=== PATIENT | female | born 1995 | race Caucasian/White ===

== ENCOUNTER → 2021-10-22 08:34 | Outpatient (BNVA) | payer BC, SELFPAY | PROVIDERS: PCP Pediatrics; Visit Provider Nurse Practitioner Family ==

== ENCOUNTER → 2022-03-22 08:11 | Outpatient (BNVA) | payer BC, SELFPAY | PROVIDERS: PCP Pediatrics; Visit Provider Nurse Practitioner Family | DX: G43.109 Migraine with aura, not intractable, without status migrainosus (principal) ==

== ENCOUNTER → 2023-01-04 15:25 | Outpatient (BNVA) | payer BC, SELFPAY | PROVIDERS: Visit Provider Nurse Practitioner Family | DX: Z13.89 Encounter for screening for other disorder (principal) ==

== ENCOUNTER → 2023-02-02 16:16 | Outpatient (BNVA) | payer BC, SELFPAY | PROVIDERS: PCP Physician Assistant; Visit Provider Nurse Practitioner Family | DX: Z13.89 Encounter for screening for other disorder (principal) ==

== ENCOUNTER 2023-05-26 11:06 | Outpatient (AMB) | payer BC, SELFPAY ==
--- NOTE | 2023-05-26 11:06 | MHC.OFFVIS ---
Intake Vital Signs 05/26/23 11:07 Height 4 ft 11 in BMI Reason not done Patient refused/unable Position Sitting Pulse 86 Pulse Source Pulse Oximeter Pulse Oximetry (%) 99 Oxygen Delivery Method Room Air Intake Visit Reasons: Follow up Intake Note: Pt presents as a f/u. Back on topirimate and everything is tingling, hands and feet. Pt states she was taken off previously and couldn't remember why. [employer] Consultant Required: No Allergies No Known Allergies Allergy (Verified 05/26/23 11:10) Medication List - Last Reconciled 05/26/23 by PEGGY Fernandez diphenhydramine HCl (Benadryl) 25 mg PO TID PRN 30 days erenumab-aooe (Aimovig Autoinjector) 140 mg subcut ONCE 28 days meloxicam 15 mg PO DAILY PRN methocarbamol 750 mg PO Q8H PRN rizatriptan 5 - 10 mg (0.5 - 1 x 10 mg) PO Q2H PRN 21 days topiramate 50 mg PO DAILY 7 days topiramate 25 - 50 mg (1 - 2 x 25 mg) PO DAILY 30 days HPI HPI Comments History of Present Illness Details 27-yr-old female presents for urgent f/u d/t worsening typical migraine. Pt reports she has not been able to work at all since 05/16/23 due to worsening migraine. She is having bilateral hands and feet bothersome pins and needles. She notes that soda does not taste normal. She does not currently have an abortive migraine medication, as her insurance denied the ubrelvy request She is compliant with her topiramate 25mg qd and Aimovig 140mg sc q month. [facility] Surgical History History of ear surgery Hx of tonsillectomy Social History (Updated 05/26/23 @ 11:14 by Kayleigh Erwin CMA) Alcohol intake: current Alcohol intake frequency: holidays/special occasions only Patient Tobacco Use Status: Current everyday Tobacco user Substance Use Type: Marijuana Review of Systems Const All systems reviewed & are unremarkable except as noted in HPI and below Physical Exam Vital Signs: Last Vital Signs Pulse 86 05/26/23 11:07 Pulse Ox 99 05/26/23 11:07 Oxygen Delivery Method Room Air 05/26/23 11:07 Const General: cooperative and no acute distress Orientation/consciousness: patient oriented x3 HEENT Head: Yes normocephalic Resp Effort & Inspection: normal respiratory effort and able to speak in complete sentences Neuro Other: Photophobia BUE- negative Tinnel, Phalen, medial compression test General: patient oriented x3, gait normal and CN's II-XI intact bilaterally Cognition (Neuro): normal cognition Motor exam (neuro): 5/5 motor strength present throughout Psych Appearance: grossly normal Mental Status: mental status grossly normal Speech and movement: Normal speech and movement present Affect: normal affect Attitude: cooperative Thought process: Normal thought process present Thought content: Normal thought content present Insight: Good insight present (Psych) Judgement: Good judgement present (Psych) Assessment & Plan Assessment & Plan (1) Migraine with status migrainosus: Code(s): G43.901 - Migraine, unspecified, not intractable, with status migrainosus (2) Migraine with aura, not intractable, without status migrainosus: Code(s): G43.109 - Migraine with aura, not intractable, without status migrainosus Plan As pt has had an increase in her migraine burden affecting her ability to work, I have advised pt to abstain from work x's 1.5 months to allow for migraine treatment optimization. For migraine prevention: Monitor and track migraine. Continue Aimovig 140mg sc q 28 days- previously effective. Stop topiramate Xr cap- 25 qhs- likely this is causing paresthesias. Once paresthesias subside, Trial Trokendi XR 50mg qhs- pt has previously tolerated this well and had good effect. Previous preventive migraine tx trials- Amitriptyline- ineffective at low doses, hand paresthesias at higher doses. Ajovy - effective no longer covered. Topiramate- not tolerated. Trokendi helpful but insurance stopped covering it. Botox- ineffective. Nortriptyline- ineffective. Propranolol- ineffective. ? For acute migraine tx: Trial Rizatriptan prn. Trial Benadryl fro rescue. When available- start Trudhessa 1 spray into each nostril x's 1, may repeat in 1 hr (max 4 sprays per day or 6 sprays per week)- in hopes this helps prolonged migraine attack, especially nocturnal onset migraine. Ubrelvy stopped- not covered by insurance as pt is on Aimovig. Previous acute migraine treatment trials: Ubrelvy helpful for typical migraine, not effective for prolonged migraine. Sumatriptan, Zolmitriptan, Naratriptan, Fioricet ineffective. f/u in 6 weeks or sooner prn. Medications: New rizatriptan max 2 tabs per day or 4 tabs per week 5 - 10 mg (0.5 - 1 x 10 mg) PO Q2H 21 days PRN 12 tabs 3RF migraine headache diphenhydramine HCl (Benadryl) 25 mg PO TID 30 days PRN 30 caps 1RF migraine headache topiramate (Trokendi XR) 50 mg PO BEDTIME 30 days 30 caps 6RF Discontinued topiramate Discontinued Reason: Doctor's Order 25 - 50 mg (1 - 2 x 25 mg) PO DAILY 30 days 60 caps 6RF Coding Level of Care Code Est Pt Level 4 (34617) Diagnoses Migraine with status migrainosus G43.901 Migraine with aura, not intractable, without status migrainosus G43.109
[2023-05-26 11:07] VITALS: PULSE 86; O2SAT 99
== END 2023-05-26 11:57 | disposition home or self-care (01) ==
PROVIDERS: PCP Physician Assistant; Visit Provider Nurse Practitioner Family
DX: G43.901 Migraine, unspecified, not intractable, with status migrainosus (principal); G43.109 Migraine with aura, not intractable, without status migrainosus
CPT/HCPCS: 99214

== ENCOUNTER → 2023-05-26 11:06 | Outpatient (BNVA) | payer BC, SELFPAY | PROVIDERS: PCP Physician Assistant; Visit Provider Nurse Practitioner Family ==

== ENCOUNTER 2023-07-13 15:42 | Outpatient (AMB) | payer BC, SELFPAY ==
--- NOTE | 2023-07-13 15:42 | A.OFFVIS_ITS ---
Intake Intake Visit Reasons: Follow up-Confirmed Intake Note: Patient presents for follow up. Patient states Im following up and seeing her for disability leave, I guess they sent more paperwork for her to sign. Allergies No Known Allergies Allergy (Verified 07/13/23 15:43) Medication List - Last Reconciled 07/13/23 by PEGGY Fernandez amitriptyline 10 mg PO BEDTIME 30 days diphenhydramine HCl (Benadryl) 25 mg PO TID PRN 30 days erenumab-aooe (Aimovig Autoinjector) 140 mg subcut ONCE 28 days meloxicam 15 mg PO DAILY PRN methocarbamol 750 mg PO Q8H PRN rizatriptan 5 - 10 mg (0.5 - 1 x 10 mg) PO Q2H PRN 21 days topiramate (Trokendi XR) 50 mg PO BEDTIME 30 days HPI HPI Comments History of Present Illness Details 27-yr-old female presents for f/u televi constantin visit, via [employer] She is having 4 severe migraine attacks per week, lasting all day. She is still having peripheral tingling. She is noticing more mood swings- which is not typical for her. She is still out of work. PFSH Surgical History Hx of tonsillectomy History of ear surgery Social History Alcohol intake: current Alcohol intake frequency: holidays/special occasions only Patient Tobacco Use Status: Current everyday Tobacco user Substance Use Type: Marijuana Review of Systems Const All systems reviewed & are unremarkable except as noted in HPI and below Physical Exam Const General: cooperative and no acute distress Orientation/consciousness: patient oriented x3 Resp Effort & Inspection: normal respiratory effort and able to speak in complete sentences Neuro General: patient oriented x3 Cognition (Neuro): normal cognition Psych Appearance: grossly normal Mental Status: mental status grossly normal Speech and movement: Clear speech present Affect: normal affect Attitude: cooperative Assessment & Plan Assessment & Plan (1) Migraine with aura, not intractable, without status migrainosus: Code(s): G43.109 - Migraine with aura, not intractable, without status migrainosus (2) Obstructive sleep apnea (adult) (pediatric): Code(s): G47.33 - Obstructive sleep apnea (adult) (pediatric) (3) Sleep difficulties: Code(s): G47.9 - Sleep disorder, unspecified (4) Snoring: Code(s): R06.83 - Snoring (5) Excessive daytime sleepiness: Code(s): G47.19 - Other hypersomnia Plan Pt advised to undergo HST to assess for any worsening of her known MAY. For migraine prevention: Monitor and track migraine. Continue Amitriptyline 10mg qhs. Continue Aimovig 140mg sc q 28 days- previously effective. Stop Trokendi- it will take approx 6 days for thsi to completely clear out. Monitor mood. If mood symptoms persist, consider adding Venlafaxine which may help mood and headaches. Amitriptyline- ineffective at low doses, hand paresthesias at higher doses. Ajovy - effective no longer covered. Topiramate IR/ER- not tolerated. Botox- ineffective. Nortriptyline- ineffective. Propranolol- ineffective. ? For acute migraine tx: Rizatriptan prn. Benadryl fro rescue. When available- start Trudhessa 1 spray into each nostril x's 1, may repeat in 1 hr (max 4 sprays per day or 6 sprays per week)- in hopes this helps prolonged migraine attack, especially nocturnal onset migraine. Ubrelvy stopped- not covered by insurance as pt is on Aimovig. Previous acute migraine treatment trials: Ubrelvy helpful for typical migraine, not effective for prolonged migraine. Sumatriptan, Zolmitriptan, Naratriptan, Fioricet ineffective. Pt is to abstain from work through our follow-up visit in 4-6 weeks. Orders: Orders RT home sleep study 07/13/23 G47.19 - Other hypersomnia, G47.33 - Obstructive sleep apnea (adult) (pediatric), G47.9 - Sleep disorder, unspecified, R06.83 - Snoring Medications: Refilled amitriptyline 10 mg PO BEDTIME 30 days 30 tabs 5RF Telehealth Telehealth Location of provider rendering services: practice address Location of patient: address on file Patient Identification confirmed using: Name, : Yes Telehealth method: video Patient verbally consented to treatment: Yes Patient verbally consented to billing insurance company: Yes Patient informed of any privacy concerns related to visit: Yes Minutes spent on Phone/Video with Pt.: 25 Coding Level of Care Code Tele Est Pt Level 4 (06521) Diagnoses Migraine with aura, not intractable, without status migrainosus G43.109 Obstructive sleep apnea (adult) (pediatric) G47.33 Sleep difficulties G47.9 Snoring R06.83 Excessive daytime sleepiness G47.19
== END 2023-07-13 16:00 ==
PROVIDERS: PCP Physician Assistant; Visit Provider Nurse Practitioner Family
DX: G43.109 Migraine with aura, not intractable, without status migrainosus (principal); G47.33 Obstructive sleep apnea (adult) (pediatric); R06.83 Snoring; G47.19 Other hypersomnia
CPT/HCPCS: 99214

== ENCOUNTER → 2023-07-13 15:42 | Outpatient (BNVA) | payer BC, SELFPAY | PROVIDERS: PCP Physician Assistant; Visit Provider Nurse Practitioner Family ==

== ENCOUNTER 2023-08-22 14:10 | Outpatient (AMB) | payer BC, SELFPAY ==
--- NOTE | 2023-08-22 14:10 | MHC.OFFVIS ---
Intake Intake Visit Reasons: 6 wks F/u- Ok per [facility]/Confirmed Intake Note: Patient presents for paper work. Patient states just a follow up for paperwork that you guys should've received on the . Allergies No Known Allergies Allergy (Verified 08/22/23 14:11) Medication List - Last Reconciled 08/22/23 by PEGGY Fernandez amitriptyline 10 mg PO BEDTIME 30 days diphenhydramine HCl (Benadryl) 25 mg PO TID PRN 30 days erenumab-aooe (Aimovig Autoinjector) 140 mg subcut ONCE 28 days meloxicam 15 mg PO DAILY PRN methocarbamol 750 mg PO Q8H PRN rizatriptan 5 - 10 mg (0.5 - 1 x 10 mg) PO Q2H PRN 21 days venlafaxine ER 37.5 mg PO DAILY 30 days HPI HPI Comments History of Present Illness Details 27-yr-old female presents for f/u visit televisit Pt reports she developed a mild URI approx 3 weeks ago, since she has had a sore throat and bothersome cough- triggered by talking. She has completely weaned off of the Trokendi XR. She has started Venalfaxine 37.5mg. Her mood has stabilized- less up and downs. She continues to have 3 severe migraine days, which last all day) per week a/w aura, photophobia, phonophobia, dizziness. The Rizatriptan is not as effective as it used to be. She is scheduled for sleep study next week. [facility] Surgical History Hx of tonsillectomy History of ear surgery Social History Alcohol intake: current Alcohol intake frequency: holidays/special occasions only Patient Tobacco Use Status: Current everyday Tobacco user Substance Use Type: Marijuana Review of Systems Const All systems reviewed & are unremarkable except as noted in HPI and below Physical Exam Const General: cooperative and no acute distress Orientation/consciousness: patient oriented x3 HEENT Other: Hoarse voice Resp Other: Frequent non-productive cough interrupts pt's ability to speak whole sentences, more so as visit progresses. Neuro Other: Photophobic General: patient oriented x3 Cognition (Neuro): normal cognition Psych Appearance: grossly normal Mental Status: mental status grossly normal Speech and movement: Normal speech and movement present Affect: normal affect Attitude: cooperative Assessment & Plan Assessment & Plan (1) Migraine with aura, not intractable, without status migrainosus: Code(s): G43.109 - Migraine with aura, not intractable, without status migrainosus (2) Obstructive sleep apnea (adult) (pediatric): Code(s): G47.33 - Obstructive sleep apnea (adult) (pediatric) (3) Snoring: Code(s): R06.83 - Snoring (4) Excessive daytime sleepiness: Code(s): G47.19 - Other hypersomnia Plan Pt advised to f/u w/ PCP or urgent care for cough/hoarseness, as this estuardo be exacerbating her migarine s/s. HST to assess for any worsening of her known MAY- scheduled 08/29/23- may need to hold d/t current cough. ? For migraine prevention: Monitor and track migraine. Continue Amitriptyline 10mg qhs. Continue Aimovig 140mg sc q 28 days.. Increase Venlafaxine ER from 37.5mg qd to 75mg qd. If mood symptoms persist, consider adding Venlafaxine which may help mood and headaches. Amitriptyline- ineffective at low doses, hand paresthesias at higher doses. Ajovy - effective no longer covered. Topiramate IR/ER- not tolerated. Botox- ineffective. Nortriptyline- ineffective. Propranolol- ineffective. Trokendi- caused paresthesias. ? For acute migraine tx: Hold Rizatriptan prn- no longer as eeffective. Trial Eletriptan 40mg prn. Trial Zomig 5mg nasal spray prn. Benadryl for rescue. When available- start Trudhessa 1 spray into each nostril x's 1, may repeat in 1 hr (max 4 sprays per day or 6 sprays per week)- in hopes this helps prolonged migraine attack, especially nocturnal onset migraine. Previous acute migraine treatment trials: Ubrelvy helpful for typical migraine, not effective for prolonged migraine. Sumatriptan, Zolmitriptan, Naratriptan, Fioricet ineffective. Ubrelvy stopped- not covered by insurance as pt is on Aimovig. ? Pt is to abstain from work through 12/16/23, will f/u at end of Nov 2023. Medications: New zolmitriptan administer into one nostril (only); alternate nostrils; do not exceed 10 mg /24 hrs 1 spray intranasal Q2H 30 days PRN 6 ea 3RF headache venlafaxine ER 75 mg PO QAM 30 days 30 caps 3RF eletriptan take 1 tab at onset of headache; if no relief, may repeat 1 tab after at least 2 hrs; max = 2 tabs/24 hrs PO 30 days 12 tabs 3RF Discontinued rizatriptan max 2 tabs per day or 4 tabs per week Discontinued Reason: Doctor's Order 5 - 10 mg (0.5 - 1 x 10 mg) PO Q2H 21 days PRN 12 tabs 3RF migraine headache venlafaxine ER Discontinued Reason: Doctor's Order 37.5 mg PO DAILY 30 days 30 caps 3RF Telehealth Telehealth Location of provider rendering services: practice address Location of patient: address on file Patient Identification confirmed using: Name, : Yes Telehealth method: video Patient verbally consented to treatment: Yes Patient verbally consented to billing insurance company: Yes Patient informed of any privacy concerns related to visit: Yes Minutes spent on Phone/Video with Pt.: 22 Coding Level of Care Code Tele Est Pt Level 4 (06461) Diagnoses Migraine with aura, not intractable, without status migrainosus G43.109 Obstructive sleep apnea (adult) (pediatric) G47.33 Snoring R06.83 Excessive daytime sleepiness G47.19
== END 2023-08-23 08:23 | disposition home or self-care (01) ==
LOC: HO.HSMS 14:10
PROVIDERS: PCP Physician Assistant; Visit Provider Nurse Practitioner Family
DX: G43.109 Migraine with aura, not intractable, without status migrainosus (principal); G47.33 Obstructive sleep apnea (adult) (pediatric); R06.83 Snoring; G47.19 Other hypersomnia
CPT/HCPCS: 99214

== ENCOUNTER → 2023-08-22 14:10 | Outpatient (BNVA) | payer BC, SELFPAY | PROVIDERS: PCP Physician Assistant; Visit Provider Nurse Practitioner Family ==

== ENCOUNTER → 2023-09-21 07:56 | Outpatient (REF) | payer BC, SELFPAY | LOC: HO.SL 07:56 | PROVIDERS: PCP Physician Assistant; Visit Provider Nurse Practitioner Family | DX: G47.33 Obstructive sleep apnea (adult) (pediatric) (principal); G47.19 Other hypersomnia; R06.83 Snoring | CPT/HCPCS: 95806 ==

== ENCOUNTER → 2023-09-21 08:17 | Outpatient (BNV) | payer BC, SELFPAY | PROVIDERS: PCP Physician Assistant; Visit Provider Psychiatry & Neurology Neurology | DX: R06.83 Snoring (principal) | CPT/HCPCS: 95806 ==

== ENCOUNTER → 2023-09-27 07:44 | Outpatient (BNVA) | payer BC, SELFPAY | PROVIDERS: PCP Physician Assistant; Visit Provider Nurse Practitioner Family ==

== ENCOUNTER → 2023-10-31 20:30 | Outpatient (REF) | payer BC, SELFPAY | LOC: HO.SL 20:30 | PROVIDERS: PCP Physician Assistant; Visit Provider Nurse Practitioner Family | DX: G47.19 Other hypersomnia (principal); R06.83 Snoring; G43.901 Migraine, unspecified, not intractable, with status migrainosus | CPT/HCPCS: 95810 ==

== ENCOUNTER → 2023-10-31 20:30 | Outpatient (BNV) | payer BC, SELFPAY | PROVIDERS: PCP Physician Assistant; Visit Provider Psychiatry & Neurology Neurology | DX: R06.83 Snoring (principal) | CPT/HCPCS: 95810 ==

== ENCOUNTER → 2023-11-09 08:15 | Outpatient (BNVA) | payer BC, SELFPAY | PROVIDERS: PCP Physician Assistant; Visit Provider Nurse Practitioner Family ==

== ENCOUNTER 2023-12-21 07:56 | Outpatient (AMB) | payer BC, SELFPAY ==
--- NOTE | 2023-12-21 07:57 | A.OFFVIS_ITS ---
Intake Intake Visit Reasons: 8 wks f/u-Conf Intake Note: Patient presents for 8 weeks follow up Allergies No Known Allergies Allergy (Verified 08/22/23 14:11) Medication List - Last Reconciled 12/21/23 by PEGGY Fernandez amitriptyline 10 mg PO BEDTIME 30 days atogepant (Qulipta) 60 mg PO DAILY 30 days diphenhydramine HCl (Benadryl) 25 mg PO TID PRN 30 days eletriptan take 1 tab at onset of headache; if no relief, may repeat 1 tab after at least 2 hrs; max = 2 tabs/24 hrs PO 30 days indomethacin 25 mg PO TID 30 days meloxicam 15 mg PO DAILY PRN methocarbamol 750 mg PO Q8H PRN ubrogepant (Ubrelvy) 50 - 100 mg (0.5 - 1 x 100 mg) PO ONCE PRN 30 days venlafaxine ER 37.5 mg PO DAILY 30 days venlafaxine ER 75 mg PO QAM 30 days zolmitriptan 1 spray intranasal Q2H PRN 30 days HPI HPI Comments History of Present Illness Details 28-yr-old female presents for f/u televi constantin visit via [employer]. Pt denies any significant interval medical changes. However, she has increased stress r/t recently being let go of her job. She does have long-term disability. 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 She accidentally broke her glasses- so was having increased vision issues while waiting for replacement. She is currently having 4-6 more severe migraine days per week. Her mood is more irritable- possibly r/t stress, migraine burden. She did receive her Ubrelvy x's 1 month- it is helpful if taken at the 1st sign of an attack. She did need to use an access card to help cover the cost of the co-pay. There is an issue w/ the co-pay card system- so she has to wait to refill this. Baseline headache characteristics: Aura- right eye- vision becomes grainy and blurry. Stabbing pain, starts right frontal then becomes holocranial a/w photophobia, phonophobia, dizziness, at times nausea.. [facility] Surgical History Hx of tonsillectomy History of ear surgery Social History Alcohol intake: current Alcohol intake frequency: holidays/special occasions only Patient Tobacco Use Status: Current everyday Tobacco user Substance Use Type: Marijuana Physical Exam Const General: cooperative and no acute distress Orientation/consciousness: patient oriented x3 Resp Effort & Inspection: normal respiratory effort and able to speak in complete sentences Neuro General: patient oriented x3 Cognition (Neuro): normal cognition Psych Appearance: grossly normal Mental Status: mental status grossly normal Speech and movement: Normal speech and movement present Affect: normal affect Attitude: cooperative Assessment & Plan Assessment & Plan (1) Migraine with aura, not intractable, without status migrainosus: Code(s): G43.109 - Migraine with aura, not intractable, without status migrainosus (2) Depression: Code(s): F32.A - Depression, unspecified (3) Sleep difficulties: Code(s): G47.9 - Sleep disorder, unspecified Plan In-lab PSG reviewed- no evidence of sleep apnea- AHI 2 per hour and O2 cassie 87%, however study was of short duration. ? For migraine prevention: Monitor and track migraine. Continue venlafaxine ER 112.5 mg (75+37.5mg caps) daily Stop Emgality for now- no clear benefit. Start Qulipta (atogepant) 60mg daily at bedtime- monitor for GI side effects, decreased appetite, sleepiness. Previous med tx's: Amitriptyline- ineffective at low doses, hand paresthesias at higher doses. Ajovy - effective no longer covered. Topiramate IR/ER- not tolerated. Botox- ineffective. Nortriptyline- ineffective. Propranolol- ineffective. Trokendi- caused paresthesias. Aimovig- lost effectiveness. Future considerations- Atogepant. ? For acute migraine tx: Start Indomethacin 25mg 3 x's per day as needed- to see if this helps the stabbing headache pain. Take w/ food. May take w/ Ubrlevy or a triptan. Do not take w/ Meloxicam. Ubrelvy 100mg- max 2 tabs per day Eletriptan 40mg as needed Zomig 5mg nasal spray as needed Benadryl for rescue. Previous acute migraine treatment trials: Ubrelvy helpful for typical migraine, stopped only d/t not covered by insurance as pt was on Aimovig.. Sumatriptan, Zolmitriptan, Naratriptan, Fioricet ineffective. Rizatriptan prn- no longer as effective. ? As pt is again having 5-6 severe migraine attacks per week despite treatment compliance, pt is to abstain from work through follow-up here in approximately 2 months. ? This note is constructed using voice recognition software. While every effort has been made to ensure accuracy, final inspector shuttle errors may have been included. Medications: New atogepant (Qulipta) 60 mg PO DAILY 30 days 30 tabs 3RF indomethacin administer with food or milk 25 mg PO TID 30 days 90 caps 3RF Refilled ubrogepant (Ubrelvy) take at onset of migraine, may repeat in 2hrs (may take w/ Ibuprofen) 50 - 100 mg (0.5 - 1 x 100 mg) PO ONCE 30 days PRN 16 tabs 3RF migraine headache Discontinued galcanezumab-gnlm (Emgality Pen) 240 mg loading dose, followed by monthly 120 mg maintenance dose Discontinued Reason: Doctor's Order 240 mg (2 mL) subcut ONCE 30 days 2 mL 0RF Telehealth Telehealth Location of provider rendering services: practice address Location of patient: address on file Patient Identification confirmed using: Name, : Yes Telehealth method: video Patient verbally consented to treatment: Yes Patient verbally consented to billing insurance company: Yes Patient informed of any privacy concerns related to visit: Yes Minutes spent on Phone/Video with Pt.: 30 Coding Level of Care Code Est Pt Level 4 (74736) Diagnoses Migraine with aura, not intractable, without status migrainosus G43.109 Depression F32.A Sleep difficulties G47.9
== END 2023-12-21 08:30 ==
LOC: HO.HSMS 07:56
PROVIDERS: PCP Physician Assistant; Visit Provider Nurse Practitioner Family
DX: G43.109 Migraine with aura, not intractable, without status migrainosus (principal); F32.A Depression, unspecified; G47.9 Sleep disorder, unspecified
CPT/HCPCS: 99214

== ENCOUNTER → 2023-12-21 07:56 | Outpatient (BNVA) | payer BC, SELFPAY | PROVIDERS: PCP Physician Assistant; Visit Provider Nurse Practitioner Family ==

== ENCOUNTER 2024-09-20 14:06 | Outpatient (AMB) | payer OTHER, SELFPAY ==
--- NOTE | 2024-09-20 14:07 | MHC.OFFVIS ---
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 Accompanied by: Self / Same As Patient Allergies No Known Allergies Allergy (Verified 09/20/24 14:07) Medication List - Last Reconciled 09/20/24 by PEGGY Fernandez atogepant (Qulipta) 60 mg PO DAILY 30 days diphenhydramine HCl (Benadryl) 25 mg PO TID PRN 30 days eletriptan take 1 tab at onset of headache; if no relief, may repeat 1 tab after at least 2 hrs; max = 2 tabs/24 hrs PO 30 days indomethacin 25 mg PO TID 30 days meloxicam 15 mg PO DAILY PRN methocarbamol 750 mg PO Q8H PRN ubrogepant (Ubrelvy) 50 - 100 mg (0.5 - 1 x 100 mg) PO ONCE PRN 30 days venlafaxine ER 75 mg PO QAM 30 days venlafaxine ER 37.5 mg PO DAILY 30 days zolmitriptan 1 spray intranasal Q2H PRN 30 days Do you need a note to return to daycare/school/sports/work: No HPI Comments Details: 29-yr-old female presents for f/u of migraine televideo visit via [employer]. Pt denies any significant interval medical changes, other than intermittent right knee pain. Has done PT but pain still comes and goes. She is having increased migraine days, now having only total of 2-2.5 days per week. Migraines at times are worse when laying down, better when sitting up. She continues to have the right retro-orbital stabbing pain. She is unable to work or do most of her usual day to day activities. She is currently on long-term disability from her previous work. Baseline migraine headache characteristics: Aura- right eye- vision becomes grainy and blurry. Stabbing pain, starts right frontal then becomes holocranial a/w photophobia, phonophobia, dizziness, at times nausea. Last MRI was many yrs ago. Last eye exam- earlier this yr- reassuring. She has started to also have external spinning dizziness when she is laying bed flat and exacerbated by rolling over. Occasionally has a brief 1-2 min of ear ringing. Denies preceding ear infections, ear pain. She is was taking Qulipta 60mg qd prn but in the last several weeks has taken it daily, Venlafaxine 112.5mg qd, She is using Indomethacin 25mg cap daily- not sure if it is helping. She does not have any triptans at this point. [facility] Surgical History Hx of tonsillectomy History of ear surgery Social History Alcohol intake: current Alcohol intake frequency: holidays/special occasions only Patient Tobacco Use Status: Current everyday Tobacco user Substance Use Type: Marijuana Physical Exam Vital Signs: BMI result Body Mass Index 52.5 Const General: cooperative and no acute distress Orientation/consciousness: patient oriented x3 Resp Effort & Inspection: normal respiratory effort and able to speak in complete sentences Neuro Other: Photophobia. General: patient oriented x3 and moves all extremities Cognition (Neuro): normal cognition Psych Appearance: grossly normal Mental Status: mental status grossly normal Speech and movement: Normal speech and movement present Affect: normal affect Attitude: cooperative Telehealth Telehealth Location of provider rendering services: practice address Location of patient: address on file Patient Identification confirmed using: Name, : Yes Telehealth method: video Patient verbally consented to treatment: Yes Patient verbally consented to billing insurance company: Yes Patient informed of any privacy concerns related to visit: Yes Minutes spent on Phone/Video with Pt.: 31 Assessment & Plan Assessment & Plan (1) Depression: Code(s): F32.A - Depression, unspecified Category: Medical (2) Worsening headaches: Code(s): R51.9 - Headache, unspecified Category: Medical (3) Weight gain: Code(s): R63.5 - Abnormal weight gain Category: Medical (4) Dizziness: Code(s): R42 - Dizziness and giddiness Category: Medical (5) Fatigue: Code(s): R53.83 - Other fatigue Category: Medical (6) Chronic migraine without aura: Code(s): G43.709 - Chronic migraine without aura, not intractable, without status migrainosus Category: Medical (7) Migraine with aura, not intractable, without status migrainosus: Code(s): G43.109 - Migraine with aura, not intractable, without status migrainosus Category: Medical Plan Patient advised to undergo Brain MRI w/wo- to assess for intracranial secondary etiologies of worsening headache, such as intracranial hypertension. Check labs for common etiologies of worsening headache. Monitor dizziness- question secondary to exacerbation of chronic migraine or comorbid new onset BPPV Future considerations: Vestibular therapy ? For migraine prevention: Monitor and track migraine. Continue venlafaxine ER 112.5 mg (75+37.5mg caps) daily For now, continue Qulipta (atogepant) 60mg daily at bedtime. However, as Qulipta is not fully effective, patient advised to start Vyepti 100 mg IV infusion Q 90 days. Once patient starts Vyepti, she will stop Qulipta Previous med tx's: Amitriptyline- ineffective at low doses, hand paresthesias at higher doses. Ajovy - effective no longer covered. Topiramate IR/ER- not tolerated. Botox- ineffective. Nortriptyline- ineffective. Propranolol- ineffective. Trokendi- caused paresthesias. Aimovig- lost effectiveness. ? For acute migraine tx: Continue Indomethacin 25mg 3 x's per day as needed for stabbing headache pain. Take w/ food. May take w/ a triptan. Do not take w/ Meloxicam. Hold Ubrelvy 100mg- max 2 tabs per day Resume Eletriptan 40mg as needed Resume Zomig 5mg nasal spray as needed Resume Benadryl 25-50 mg for rescue. Previous acute migraine treatment trials: Ubrelvy helpful for typical migraine, stopped only d/t not covered by insurance as pt was on Aimovig. Sumatriptan, Zolmitriptan, Naratriptan, Fioricet ineffective. Rizatriptan prn- no longer as effective. ? As pt is again having at least 5 severe migraine attacks per week, pt is to abstain from work through follow-up here in approximately 3 months. ? This note is constructed using voice recognition software. While every effort has been made to ensure accuracy, chairman and chief executive officer errors may have been included. Orders: Orders MR head/brain wo/w con Today R42 - Dizziness and giddiness, R51.9 - Headache, unspecified, R63.5 - Abnormal weight gain Rheumatoid Factor Today F32.A - Depression, unspecified, R42 - Dizziness and giddiness, R51.9 - Headache, unspecified, R53.83 - Other fatigue, R63.5 - Abnormal weight gain Vitamin D 25-OH (D2 and D3) Today F32.A - Depression, unspecified, R42 - Dizziness and giddiness, R51.9 - Headache, unspecified, R53.83 - Other fatigue, R63.5 - Abnormal weight gain Erythrocyte Sedimentation Rate Today F32.A - Depression, unspecified, R42 - Dizziness and giddiness, R51.9 - Headache, unspecified, R53.83 - Other fatigue, R63.5 - Abnormal weight gain [place] Reflex Titer and Pattern Today F32.A - Depression, unspecified, R42 - Dizziness and giddiness, R51.9 - Headache, unspecified, R53.83 - Other fatigue, R63.5 - Abnormal weight gain TSH reflex Free T4 Today F32.A - Depression, unspecified, R42 - Dizziness and giddiness, R51.9 - Headache, unspecified, R53.83 - Other fatigue, R63.5 - Abnormal weight gain Vitamin B12 and Folate Today F32.A - Depression, unspecified, R42 - Dizziness and giddiness, R51.9 - Headache, unspecified, R53.83 - Other fatigue, R63.5 - Abnormal weight gain Complete Blood Count Auto Diff Today F32.A - Depression, unspecified, R42 - Dizziness and giddiness, R51.9 - Headache, unspecified, R53.83 - Other fatigue, R63.5 - Abnormal weight gain Comprehensive Met. Panel Today F32.A - Depression, unspecified, R42 - Dizziness and giddiness, R51.9 - Headache, unspecified, R53.83 - Other fatigue, R63.5 - Abnormal weight gain CRP High Sensitivity Today F32.A - Depression, unspecified, R42 - Dizziness and giddiness, R51.9 - Headache, unspecified, R53.83 - Other fatigue, R63.5 - Abnormal weight gain Hemoglobin A1c Today R51.9 - Headache, unspecified, R63.5 - Abnormal weight gain Medications: New eptinezumab-jjmr (Vyepti) administer over 30 mins 100 mg IV [id number] 90 days 0RF G43.109 - Migraine with aura, not intractable, without status migrainosus, G43.709 - Chronic migraine without aura, not intractable, without status migrainosus Refilled indomethacin administer with food or milk 25 mg PO TID 30 days 90 caps 3RF zolmitriptan administer into one nostril (only); alternate nostrils; do not exceed 10 mg /24 hrs 1 spray intranasal Q2H 30 days PRN 6 ea 3RF headache venlafaxine ER 75 mg PO QAM 30 days 30 caps 6RF venlafaxine ER Take with 75 mg cap to total 112.5 mg daily 37.5 mg PO DAILY 30 days 30 caps 6RF diphenhydramine HCl (Benadryl) 25 mg PO TID 30 days PRN 30 caps 1RF migraine headache atogepant (Qulipta) 60 mg PO DAILY 30 days 30 tabs 3RF Coding Level of Care Code Tele Est Pt Level 4 (97273) Diagnoses Depression F32.A Worsening headaches R51.9 Weight gain R63.5 Dizziness R42 Fatigue R53.83 Chronic migraine without aura G43.709 Migraine with aura, not intractable, without status migrainosus G43.109
[2024-09-20 14:08] VITALS: BMI 52.5
== END 2024-09-20 15:52 | disposition home or self-care (01) ==
PROVIDERS: PCP Physician Assistant; Visit Provider Nurse Practitioner Family
DX: G43.E09 Chronic migraine with aura, not intractable, without status migrainosus (principal); F32.A Depression, unspecified; R63.5 Abnormal weight gain; R42 Dizziness and giddiness; R53.83 Other fatigue
CPT/HCPCS: 99214

== ENCOUNTER → 2024-09-20 14:06 | Outpatient (BNVA) | payer OTHER, SELFPAY | PROVIDERS: PCP Physician Assistant; Visit Provider Nurse Practitioner Family ==

== ENCOUNTER 2024-10-11 09:37 | Outpatient (REF) | payer OTHER, SELFPAY ==
[2024-10-11 11:06] LABS: MANUAL DIFF FLAG NO
[2024-10-11 11:24] LABS: Basophils Percent Auto 0.3 % (0-2); Eosinophils Absolute Auto 0.1 X10*3/uL (0.0-0.4); Imm Gran Abs Auto 0.03 X10*3/uL (0.00-0.03); Imm Gran Pct Auto 0.3 % (0.0-0.4); Lymphocytes Absolute Auto 3.1 X10*3/uL (1.2-4.9); Lymphocytes Percent Auto 33.4 % (20-40); Mean Corpuscular HGB Conc 32.6 g/dl (31.0-35.0); Mean Corpuscular Hemoglobin 27.8 pg (27.0-33.0); Mean Corpuscular Volume 85.5 fL (80.0-98.0); Mean Platelet Volume 11.2 fL (9.4-12.3); Monocytes Absolute Auto 0.7 X10*3/uL (0.1-1.2); Monocytes Percent Auto 7.4 % (2-11); Neutrophils Absolute Auto 5.4 x10*3/uL (2.0-8.3); Neutrophils Percent Auto 57.6 % (45-73); Platelet Count 355 X10*3/uL (160-400); Red Blood Count 5.03 X10*6/uL (4.20-5.50); Red Cell Distribution Width 13.1 % (11.0-16.0); White Blood Count 9.4 X10*3/uL (4.8-10.8)
[2024-10-11 11:51] LABS: Erythrocyte Sedimentation Rate 10 MM/HR (0-20)
[2024-10-11 12:06] LABS: Alanine Aminotransferase 47 U/L (0-31); Albumin Level 4.2 g/dL (3.5-5.0); Anion Gap 10 (12-20); Aspartate Amino Transferase 27 U/L (5-31); Bilirubin Total 0.6 mg/dL (0.0-1.0); Blood Urea Nitrogen 10 mg/dL (9-16); Calcium 9.3 mg/dL (8.4-10.2); Carbon Dioxide 26 mmol/L (22-29); Chloride 107 mmol/L (96-108); Estimated Average Glucose 111 mg/dL; Estimated Glomerular Filt Rate > 60; Glucose Random 94 mg/dL (60-115); Hemoglobin A1C 136.5714 umol/L; Hemoglobin A1c % 5.5 % (<6.0); Sodium 139 mmol/L (135-145); Total Hemoglobin (HGBA1C) 3712.4633 umol/L; Total Protein 7.1 g/dL (6.5-8.0)
[2024-10-11 12:16] LABS: Rheumatoid Factor < 13.0 IU/mL (<15.0); TSH reflex Free T4 0.62 uIU/mL (0.32-4.0)
[2024-10-11 12:27] LABS: Alkaline Phosphatase 58 U/L (39-117)
[2024-10-11 12:32] LABS: Folate 9.4 ng/mL (> or = 4.0); Vitamin B12 291 pg/mL (200-900)
[2024-10-12 09:59] LABS: CRP High Sensitivity 2.3 mg/L
[2024-10-14 12:09] LABS: Vitamin D 25-OH, D2 <4 ng/mL; Vitamin D 25-OH, D3 22 ng/mL; Vitamin D 25-OH, Total 22 ng/mL (30-100)
[2024-10-15 10:28] LABS: Anti Nuclear Antibody Screen NEGATIVE (NEGATIVE)
== END 2024-10-11 09:38 | disposition home or self-care (01) ==
LOC: HO.WFDLDS 09:37
PROVIDERS: Visit Provider Nurse Practitioner Family
DX: Z13.1 Encounter for screening for diabetes mellitus (principal); R42 Dizziness and giddiness; R51.9 Headache, unspecified; R63.5 Abnormal weight gain; R53.83 Other fatigue; F32.A Depression, unspecified
CPT/HCPCS: 36415; 80053; 82306; 82607; 82746; 83036; 84443; 85025; 85652; 86038; 86141; 86431

== ENCOUNTER → 2024-10-23 10:43 | Outpatient (BNV) | payer OTHER, SELFPAY | PROVIDERS: PCP Physician Assistant; Visit Provider Radiology Diagnostic Radiology | DX: E23.6 Other disorders of pituitary gland (principal); R51.9 Headache, unspecified | CPT/HCPCS: 70553 ==

== ENCOUNTER 2024-10-23 11:05 | Outpatient (REF) | payer OTHER, SELFPAY ==
--- NOTE | ~2024-10-23 | MR_ITS ---
EXAMINATION: MR BRAIN WITHOUT AND WITH CONTRAST CLINICAL INFORMATION: Headache. Unspecified. COMPARISON: None available. TECHNIQUE: Multiplanar, multisequence MRI of the brain was obtained before and after the intravenous administration of 10 mL gadolinium without reported immediate complications. FINDINGS: No restricted diffusion. No acute intracranial hemorrhage, mass effect, midline shift, hydrocephalus or herniation. Cote-white matter differentiation is normal. Sellar/suprasellar region demonstrated no gross masses or signal abnormality. Intrasellar CSF prominence suggesting deformative sellar insufficiency. Craniocervical junction is intact. Midline structures are normal. No abnormal enhancement within the intra-axial or the extra-axial compartments of the cranium. Flow-void signal within the main cerebral vessels is normal. MR/MR head/brain wo/w con IMPRESSION: No acute brain abnormality. No abnormal enhancement. Consider diaphragmatic sella insufficiency Electronically signed by: Beau Jones MD 10/23/2024 02:31 PM [facility]
[2024-10-23] MEDS: gadobutroL 10 ML VIAL IVPUSH (11:50)
== END 2024-10-23 11:06 | disposition home or self-care (01) ==
LOC: HO.MRI 11:05
PROVIDERS: PCP Physician Assistant; Visit Provider Nurse Practitioner Family
DX: R51.9 Headache, unspecified (principal); R63.5 Abnormal weight gain; R42 Dizziness and giddiness
CPT/HCPCS: 70553; A9585

== ENCOUNTER 2024-10-25 09:33 | Outpatient (REF) | payer OTHER, SELFPAY ==
[2024-10-25 11:23] LABS: Cortisol Random 9.2 ug/dL
[2024-10-25 11:26] LABS: Free T4 (Free Thyroxine) 0.91 ng/dL (0.71-1.85); Thyroid Stimulating Hormone 1.15 uIU/mL (0.32-4.0)
[2024-10-26 16:57] LABS: Triiodothyronine T3 Free 3.6 pg/mL (2.3-4.2); Triiodothyronine T3 Total 129 ng/dL (76-181)
[2024-10-26 18:38] LABS: Follicle Stimulating Hormone 6.1 mIU/mL; Lutenizing Hormone 6.4 mIU/mL; Prolactin 14.4 ng/mL
[2024-10-31 14:08] LABS: Human Growth Hormone 0.3 ng/mL (< OR = 7.1)
[2024-11-02 19:08] LABS: IGF-1 (Somatomedin C) 151 ng/mL (63-373); IGF-1 Z Score (Female) -0.1 SD (-2.0 - +2.0)
[2024-11-03 20:38] LABS: Testosterone, Free 2.8 pg/mL (0.1-6.4); Testosterone, Total 21 ng/dL (2-45)
== END 2024-10-25 09:34 | disposition home or self-care (01) ==
LOC: HO.LAB 09:33
PROVIDERS: Visit Provider Nurse Practitioner Family
DX: E23.6 Other disorders of pituitary gland (principal); R53.83 Other fatigue; R42 Dizziness and giddiness; R63.5 Abnormal weight gain; R51.9 Headache, unspecified
CPT/HCPCS: 36415; 82533; 83001; 83002; 83003; 84146; 84305; 84402; 84403; 84439; 84443; 84480; 84481

== ENCOUNTER 2024-12-19 10:12 | Outpatient (AMB) | payer OTHER, SELFPAY ==
--- NOTE | 2024-12-19 10:33 | A.OFFPC_ITS ---
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 Intake Note: New patient visit Telephone Plant Power Operator Required: No Allergies No Known Allergies Allergy (Verified 12/19/24 10:33) Medication List - Last Reconciled 12/19/24 by Heather Mathew PA-C aspirin (Adult Aspirin Regimen) 81 mg PO DAILY atogepant (Qulipta) 60 mg PO DAILY 30 days cholecalciferol (vitamin D3) 1,250 mcg PO QWEEK 12 days diphenhydramine HCl (Benadryl) 25 mg PO TID PRN 30 days eptinezumab-jjmr (Vyepti) 100 mg IV [id number] 90 days meloxicam 15 mg PO DAILY PRN methocarbamol 750 mg PO Q8H PRN ubrogepant (Ubrelvy) 50 - 100 mg (0.5 - 1 x 100 mg) PO ONCE PRN 30 days venlafaxine ER 75 mg PO QAM 30 days venlafaxine ER 37.5 mg PO DAILY 30 days zolmitriptan 1 spray intranasal Q2H PRN 30 days Tobacco use date assessed: 12/19/24 Dental Screening Dental Screen Date: 12/19/24 Did you have a dental visit in the last 12 months?: Yes Did you have a dental problem in the last 6 months where you did not have access to dental care?: No Was dental information given to patient?: Patient has dentist HPI 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 HPI Details Patient is a 29-year-old female with a significant past medical history of migraines, anxiety, depression, and obstructive sleep apnea presenting today to [facility]. No acute concerns today. Musculoskeletal: left foot ganglion cyst removed Neuro: She is following with neurology for her dizziness and migraines. She has a follow up scheduled in January. She is frustrated because currently her insurance is giving her a hard time about paying for the infusions. She is not currently treating the obstructive sleep apnea and states that it was a limited test. I did review in the data was limited. She says that she had a hard time sleeping through that test. For migraine prevention: Monitor and track migraine. Continue venlafaxine ER 112.5 mg (75+37.5mg caps) daily For now, continue Qulipta (atogepant) 60mg daily at bedtime. However, as Qulipta is not fully effective, patient advised to start Vyepti 100 mg IV infusion Q 90 days. Once patient starts Vyepti, she will stop Qulipta Previous med tx's: Amitriptyline- ineffective at low doses, hand paresthesias at higher doses. Ajovy - effective no longer covered. Topiramate IR/ER- not tolerated. Botox- ineffective. Nortriptyline- ineffective. Propranolol- ineffective. Trokendi- caused paresthesias. Aimovig- lost effectiveness Newspaper Copy Editor: UTD- has a scheduled appointment in 3 months Fam hx: Paternal aunt had ovarian ca around age of 50. Maternal grandfather pancreatic ca in his mid 70s. 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 Lives at home with her boyfriend and 2 dogs. 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 1. Little interest or pleasure in doing things: several days 2. Feeling down, depressed, or hopeless: not at all 3. Trouble falling or staying asleep, or sleeping too much: not at all 4. Feeling tired or having little energy: not at all 5. Poor appetite or overeating: several days 6. Feeling bad about yourself - or that you are a failure or have let yourself or your family down: several days 7. Trouble concentrating on things, such as reading the newspaper or watching television: several days 8. Moving or speaking so slowly that other people could have noticed. Or the opposite - being so fidgety or restless that you have been moving around a lot more than usual: not at all 9. Thoughts that you would be better off or of hurting yourself in some way: not at all Total score: 4 Depression Screening Interpretation: Positive Depression Screening Follow-up: Existing condition, In treatment and Follow-up Visit Requested Depression Screening Done: Yes 25605 - PHQ-9 Billing: Yes Source: Developed by Drs. Manjit Taylor, Radha Barraza, Robert Hicks and colleagues, with an educational nolan from [employer]. Thrive Questionnaire Date Thrive assessed: 12/12/24 I am a: Patient What is your living situation today?: I have a steady place to live Within the past 12 months, did the food you bought not last and you didn't have the money to get more?: Never true Within the past 12 months, did you worry whether your food would run out before you got money to buy more?: Never true Do you have trouble paying for medicines?: Yes Do you have trouble getting transportation to medical appointments?: No Do you have trouble paying your heating and electricity bill?: No Do you have trouble taking care of your child, family member or friend?: No Do you have trouble with day-to-day activities such as bathing, preparing meals, shopping, managing finances, etc.?: I choose not to answer this question Are you currently unemployed and looking for a job?: I choose not to answer this question Are you interested in more education?: I choose not to answer this question Please select the resources that you would like help with: None Currently or been in a relationship where the following occur: I choose not to answer THRIVE Score: 0 AUDIT C Alcohol Use Questionnaire (AUDIT-C) 1. How often do you have a drink containing alcohol?: Monthly or less 2. How many drinks containing alcohol do you have on a typical day when you are drinking?: 1 or 2 3. How often do you have six or more drinks on one occasion?: Never Total Score: 1 Score Reviewed/Action Taken: Yes MEENAKSHI-7 AMB Questionnaire MEENAKSHI-7 Feeling nervous, anxious, or on edge: 1 = Several days Not being able to stop or control worryin = Not at all Worrying too much about different things: 1 = Several days Trouble relaxin = Several days Being so restless that it is hard to sit still: 0 = Not at all Becoming easily annoyed or irritable: 3 = Nearly every day Feeling afraid as if something awful might happen: 0 = Not at all Total MEENAKSHI-7 score (0-4 normal; 5-9 mild; 10-14 moderate; 15-21 severe): 6 Source: Developed by Drs. Manjit Taylor, Radha Barraza, Robert Hicks and colleagues, with an educational nolan from [employer]. MEENAKSHI-7 Assessment Billing MEENAKSHI-7 Assessment Tool: MEENAKSHI-7 Assessment 85281 Physical exam (Primary Care) Vital Signs: Last Vital Signs Pulse 106 H 12/19/24 10:36 Resp 16 12/19/24 10:36 BP 102/74 12/19/24 10:36 Pulse Ox 99 12/19/24 10:36 Oxygen Delivery Method Room Air 12/19/24 10:36 BMI result Body Mass Index 55.7 Tobacco/Smoking Status: Tobacco use Status Tobacco use date assessed 12/19/24 12/19/24 10:39 Patient Tobacco Use Status Current everyday Tobacco 12/19/24 10:39 e-Cigarette/Vaping Use Never Used 12/19/24 10:39 PHQ-9: PHQ-9 Score PHQ-9: Total score 4 12/19/24 10:45 Depression Screening Interpretation: Positive Depression Screening Follow-up: Existing condition, In treatment and Follow-up Visit Requested Thrive Assessment: Date of Thrive Assessment Date Thrive assessed 12/12/24 12/19/24 10:39 Currently or been in a relationship where the following occur: I choose not to answer Const Orientation/consciousness: patient oriented x3 HENMT Ears: hearing grossly normal bilaterally Neck Thyroid: Thyroid normal Lymphatic: no lymphadenopathy noted Resp Auscultation: clear to auscultation bilaterally Cardio Rate: regular rate Rhythm: regular rhythm Heart sounds: S1 normal heart sound present and S2 normal heart sound present GI Inspection: Yes normal to inspection Palpation (GI): Soft to palpation and Other GI palpation findings present (nontender, no cva tenderness) Auscultation: normoactive bowel sounds Rectal Exam - Female: deferred Skin General skin exam: no rashes or lesions noted Neuro General: patient oriented x3, gait normal and no focal motor deficits Results Reviewed Results Reviewed: Laboratory Tests 10/11/24 10/25/24 09:39 09:51 WBC 9.4 RBC 5.03 Hgb 14.0 Hct 43.0 Plt Count 355 Sodium 139 Potassium 4.0 Chloride 107 Carbon Dioxide 26 Anion Gap 10 L BUN 10 Creatinine 0.65 Estimated GFR > 60 Hemoglobin A1c % 5.5 Calcium 9.3 Total Bilirubin 0.6 AST 27 ALT 47 H Alkaline Phosphatase 58 C-React Prot High Sens 2.3 Total Protein 7.1 Albumin 4.2 Vitamin B12 291 25-OH Vitamin D Total 22 L Folate 9.4 TSH 1.15 Free T4 0.91 Free T3 3.6 Total T3 129 Coding Level of Care Code Est Pt Level 4 (89700) Complex EM visit Add On G2211 Diagnoses Chronic migraine without aura G43.709 Generalized anxiety disorder F41.1 Mild episode of recurrent major depressive disorder F33.0 Depression Type: major depressive disorder Major depression recurrence: recurrent Active/Remission status: currently active Major depression episode severity: mild Additional Codes PHQ-9 - 64548 - PHQ-9 Billing: Yes ([id number]) MEENAKSHI-7 Assessment Billing - MEENAKSHI-7 Assessment Tool: MEENAKSHI-7 Assessment [id number] ([id number]) Assessment & Plan Assessment & Plan (1) Chronic migraine without aura: Code(s): G43.709 - Chronic migraine without aura, not intractable, without status migrainosus Category: Medical Plan: Following with Neurology (2) Generalized anxiety disorder: Code(s): F41.1 - Generalized anxiety disorder Category: Medical Plan: Currently managed with venlafaxine. (3) Depression: Code(s): F32.A - Depression, unspecified Category: Medical Qualifiers: Depression Type: major depressive disorder Major depression recurrence: recurrent Active/Remission status: currently active Major depression episode severity: mild Qualified Code(s): F33.0 - Major depressive disorder, recurrent, mild Plan: Currently managed with venlafaxine 112 mg. Tolerating dosage well. No SI/HI. Orders: Orders Lipid Panel Today G43.709 - Chronic migraine without aura, not intractable, without status migrainosus, Z13.220 - Encounter for screening for lipoid disorders
[2024-12-19 10:36] VITALS: BP 102/74; PULSE 106; RESP 16; O2SAT 99; BMI 55.7
--- OUTSIDE RECORDS SUMMARY | 2024-12-19 12:04 | XMS_ITS | Clinical Summary ---
Author Organization [facility] it Address [address] [place] [address] Care Team Providers Care Cassandra Architect Name Role Phone Neda Burgess MD Primary Care Provider Surgical History Surgery Date Site/Laterality Comments TONSILLECTOMY PROCEDURE: HISTORICAL TONSILLECTOMY ADENOIDECTOMY PROCEDURE: HISTORICAL ADENOIDECTOMY OTHER SURGICAL HISTORY PROCEDURE: HISTORICAL EAR SURGERY Medical History Medical History Date Comments Depression DX:Depression Anxiety DX:Anxiety Family History Medical History Relation Name Comments Diabetes Paternal Grandmother Relation Name Status Comments Brother Alive 07/10/97 Father Alive 11/28/66 Mother Alive 01/17/66 Paternal Grandmother Social History Tobacco Use Types Packs/Day Years Used Date Smoking Tobacco: Never Smokeless Tobacco: Never Alcohol Use Standard Drinks/Week Comments Yes 0 (1 standard drink = 0.6 oz pur e alcohol) Comments Unknown Sex and Gender Information Value Date Recorded Sex Assigned at Not on file Legal Sex Female 3:26 AM EST Gender Identity Not on file Sexual Orientation Not on file Obstetrics History Last Filed Vital Signs Vital Sign Reading Time Taken Comments Blood Pressure 118/76 09/27/2022 9:55 AM EST Pulse 86 09/27/2022 9:55 AM EST Temperature - - Respiratory Rate - - Oxygen Saturation - - Inhaled Oxygen Concentration - - Weight 111 kg (244 lb) 09/27/2022 9:55 AM EST Height 149.9 cm (4' 11 ) 09/27/2022 9:55 AM EST Body Mass Index 49.28 09/27/2022 9:55 AM EST Plan of Treatment Health Maintenance Due Date Last Done Comments DTaP,Tdap,and Td Vaccines (7 - Td or Tdap) 09/26/2016 09/26/2006, 1999, 03/18/1997, Additional history exists Cholesterol Screening (Lipid Panel) 09/25/2022 Depression Screening 09/25/2022 HIV Screening 09/25/2022 Hepatitis C Screening 09/25/2022 Social Influencers of Health Screening 09/25/2022 Cervical Cancer Screening: Pap Smear 02/04/2024 02/03/2021 COVID-19 Vaccine ( season) 2024 Influenza Vaccine (#1) 2024 2, 11/19/2009, 11/14/2008, Additional history exists Hepatitis B Vaccines Completed 06/15/1996, 1995, 1995 HIB Vaccines Completed 12/17/1996, 02/15, 01/13/1996, Additional history exists IPV Vaccines Completed 1999, 12/1996, 03/08/1996, Additional history exists MMR Vaccines Completed 09/15/2000, 12/17/1996 HPV Vaccines Completed 11/14/2008, 12/16, 11/08/2007 Varicella Vaccines Completed 11/19/2009, 09/17/1996 Meningococcal ACWY Vaccine Completed 06/12/2013, Hepatitis A Vaccines Aged Out No long er eligible based on patient's age to complete this topic Meningococcal B Vacine Aged Out No lo nger eligible based on patient's age to complete this topic Pneumococcal Vaccine: Pediatrics (0 to 5 Years) and At-Risk Patients (6 to 64 Years) Aged Out No longer eligible based on patient's age to complete this topic RSV Immunization Patients Under 20 months Aged Out No longer eligible based on patient's age to complete this topic Procedures Procedure Name Priority Date/Time Associated Diagnosis Comments PAP SMEAR Routine 02/03/2021 from Last 3 Months or Most Recently Relevant to Health Maintenance Results * Pap smear (02/03/2021) 02/03/2021 Narrative HISTORICAL TESTING LAB RESULTING AGENCY - 02/05/2021 2:26 PM EDT [id number] THINPREP PAP, IMAGED: NEGATIVE FOR SQUAMOUS INTRAEPITHELIAL LESION AND MALIGNANCY . BRIDGETTE DZIURA , CT(ASCP) (CASE ELECTRONICALLY SIGNED 02 05 2021) ADEQUACY: SATISFACTORY ENDOCERVICAL/TRANSFORMATION ZONE COMPONENT ABSENT. SOURCE: THINPREP PAP HPV IF ASCUS, CERVICAL, IMAGED CLINICAL INFORMATION: HPV IF DIAGNOSIS OF ASCUS. HORMONES, PAP HX NEG 01/31/17, LMP 01/20/21 [Z12.4, Z01.419] Jacob Irvin CN LAB CYTOLOGY ORDERABLES Final Result HISTORICAL TESTING LAB RESULTING AGENCY from Last 3 Months or Most Recently Relevant to Health Maintenance Care Teams Cassandra Architect Relationship Specialty Start Date End Date Neda Burgess MD PCP - General Internal Medicine 11/25/15
--- OUTSIDE RECORDS SUMMARY | 2024-12-19 12:04 | XMS_ITS | Encounter Summary ---
[facility] Organization [facility] Address [address] [place] [address] Care Team Providers Care Bad Cloth Checker Name Role Phone Robyn Menendez MD Primary Care Prov ider Neda Burgess MD Primary Care Provider Unavailable Encounter Details Date Type Department Care Team Description 07/10/2014 Special Education Teaching Assistant Report Medical Records [address] [place] [id number] Social History Tobacco Use Types Packs/Day Years Used Date Smoking Tobacco: Never Smokeless Tobacco: Never Alcohol Use Standard Drinks/Week Comments No 0 (1 standard drink = 0.6 oz pur e alcohol) Sex Assigned at Date Recorded Female 05/13/2021 2:37 PM E DT documented as of this encounter Plan of Treatment Not on file documented as of this encounter Visit Diagnoses Not on filedocumented in this encounter Care Teams Bad Cloth Checker Relationship Specialty Start Date End Date Robyn Menendez MD [address] [place] [address] PCP - General Pediatrics 10/19/12 11/24/15 Neda Burgess MD [address] [place] [address] PCP - General Internal Medicine 11/25/15 documented as of this encounter
--- OUTSIDE RECORDS SUMMARY | 2024-12-19 12:04 | XMS_ITS | Encounter Summary ---
[facility] Organization [facility] Address [address] [place] [address] Care Team Providers Care Package Pick Up Name Role Phone Neda Burgess MD Primary Care Provider Unavailable Encounter Details Date Type Department Care Team Description 07/06/2017 Release of Information Medical Records [address] [place] [address] Abstract, Provider Social History Tobacco Use Types Packs/Day Years Used Date Smoking Tobacco: Never Smokeless Tobacco: Never Alcohol Use Standard Drinks/Week Comments Yes 0 (1 standard drink = 0.6 oz pur e alcohol) rarely Sex Assigned at Date Recorded Female 05/13/2021 2:37 PM E DT documented as of this encounter Plan of Treatment Not on file documented as of this encounter Visit Diagnoses Not on filedocumented in this encounter Care Teams Package Pick Up Relationship Specialty Start Date End Date Neda Burgess MD PCP - General Internal Medicine 11/25/15 documented as of this encounter
--- OUTSIDE RECORDS SUMMARY | 2024-12-19 12:04 | XMS_ITS | Clinical Summary ---
Author Organization [facility] Address [address] [place] [address] Care Team Providers Care Road Oiling Truck Driver Name Role Phone Unavailable Primary Care Provider Unavailabl e Social History Tobacco Use Types Packs/Day Years Used Date Smoking Tobacco: Never Assessed Sex and Gender Information Value Date Recorded Sex Assigned at Not on file Gender Identity Not on file Sexual Orientation Not on file Plan of Treatment Health Maintenance Due Date Last Done Comments Hepatitis C Virus Screening 1995 HIV Screening 2008 DTaP/Tdap/Td Vaccines (1 - Tdap) 2014 Hepatitis B Vaccines (1 of 3 - 19+ 3-dose series) 2014 COVID-19 Vaccine (2023-2 5 season) 2024 HPV Vaccines Aged Out No longer eligi ble based on patient's age to complete this topic Pneumococcal Vaccine: Pediat amadeo (0-5 Years) and At-Risk Patients (6 to 49 Years) Aged Out No longer eligible b ased on patient's age to complete this topic
--- OUTSIDE RECORDS SUMMARY | 2024-12-19 12:04 | XMS_ITS | Encounter Summary ---
Author Organization [facility] Address [address] [place] [address] Care Team Providers Care Cashier Parking Lot Name Role Phone Robyn Menendez MD Primary Care Prov ider Neda Burgess MD Primary Care Provider Unavailable Encounter Details Date Type Department Care Team Description 12/18/2013 Pt. Non Urgent Medical Question [facility] [address] [place] [address] Robyn Menendez MD [address] [place] [address] Social History Tobacco Use Types Packs/Day Years Used Date Smoking Tobacco: Never Smokeless Tobacco: Never Alcohol Use Standard Drinks/Week Comments No 0 (1 standard drink = 0.6 oz pur e alcohol) Sex Assigned at Date Recorded Female 05/13/2021 2:37 PM E DT documented as of this encounter Progress Notes * Neela Burdick L.P.N. - 12/18/2013 3:31 PM ESTFrom: SKYLARKAYLEIGH To: Alis Menendez MD Sent: TueDec 18, 2013 6:40 AM Subject: Kayleigh Calling in for Kayleigh, she is staying home today due to having a small fever and an ear ache along with a sore throat, she needs a note saying we called in for Medical Advice , shes laying down, drinking fluids. documented in this encounter Plan of Treatment Not on file documented as of this encounter Visit Diagnoses Not on filedocumented in this encounter Care Teams Cashier Parking Lot Relationship Specialty Start Date End Date Robyn Menendez MD [address] [place] [address] PCP - General Pediatrics 10/19/12 11/24/15 Neda Burgess MD [address] [place] [address] PCP - General Internal Medicine 11/25/15 documented as of this encounter
--- OUTSIDE RECORDS SUMMARY | 2024-12-19 12:04 | XMS_ITS | Encounter Summary ---
Author Organization [facility] Address [address] [place] [address] Care Team Providers Care Aging Department Supervisor Name Role Phone Unavailable Primary Care Provider Unavailabl e Reason for Visit * Reason Comments Medication Refill Encounter Details Date Type Department Care Team (Late st Contact Info) Description 06/06/2023 Refill [facility] [address] Ronal Boland MD [address] [place] [address] Social History Tobacco Use Types Packs/Day Years Used Date Smoking Tobacco: Never Assessed Sex and Gender Information Value Date Recorded Sex Assigned at Not on file Gender Identity Not on file Sexual Orientation Not on file documented as of this encounter Plan of Treatment Not on file documented as of this encounter Visit Diagnoses Not on filedocumented in this encounter
--- OUTSIDE RECORDS SUMMARY | 2024-12-19 12:04 | XMS_ITS | Encounter Summary ---
[facility] Organization [facility] Address [address] [place] [address] Care Team Providers Care Rn Clinical Documentation Specialist Name Role Phone Robyn Menendez MD Primary Care Prov ider Neda Burgess MD Primary Care Provider Unavailable Encounter Details Date Type Department Care Team Description 02/11/2014 Pt. Non Urgent Medical Question [facility] [address] [place] [address] Robyn Menendez MD [address] [place] [address] Social History Tobacco Use Types Packs/Day Years Used Date Smoking Tobacco: Never Smokeless Tobacco: Never Alcohol Use Standard Drinks/Week Comments No 0 (1 standard drink = 0.6 oz pur e alcohol) Sex Assigned at Date Recorded Female 05/13/2021 2:37 PM E DT documented as of this encounter Progress Notes * María Washington L.P.NHannah - 02/11/2014 9:50 AM EDTFrom: JOEKAYLEIGH Dixon To: Alis Menendez MD Sent: TueFeb 11, 2014 6:59 AM Subject: Kayleigh And Darci Am keeping both Kayleigh and Darci home from school today as both have small fevers and flu symptoms, I am just recovering from the flu , am keeping them with broth and light liquids, but need a note for the school that says I called in for Medical Advice thanks Ibeth Antunez documented in this encounter Plan of Treatment Not on file documented as of this encounter Visit Diagnoses Not on filedocumented in this encounter Care Teams Rn Clinical Documentation Specialist Relationship Specialty Start Date End Date Robyn Menendez MD [address] [place] [address] PCP - General Pediatrics 10/19/12 11/24/15 Neda Burgess MD [address] [place] [address] PCP - General Internal Medicine 11/25/15 documented as of this encounter
--- OUTSIDE RECORDS SUMMARY | 2024-12-19 12:04 | XMS_ITS | Encounter Summary ---
[facility] Organization [facility] Address [address] [place] [address] Care Team Providers Care Value Stream Manager Name Role Phone Neda Burgess MD Primary Care Provider Unavailable Encounter Details Date Type Department Care Team Description 08/08/2017 Electrical Tech/Project Manager Report Medical Records [address] [place] [address] Miranda Bennett MD Social History Tobacco Use Types Packs/Day Years [...] on filedocumented in this encounter Care Teams Value Stream Manager Relationship Specialty Start Date End Date Neda Burgess MD PCP - General Internal Medicine 11/25/15 documented as of this encounter
--- OUTSIDE RECORDS SUMMARY | 2024-12-19 12:04 | XMS_ITS | Encounter Summary ---
Author Organization [facility] Address [address] [place] [address] Care Team Providers Care Interstate Bus Dispatcher Name Role Phone Kaya Justice MD Primary Care Provider Unavaila ble Robyn Menendez MD Primary Care Prov ider Neda Burgess MD Primary Care Provider Unavailable Encounter Details Date Type Department Care Team Description 11/02/2010 [facility] Medical Records [address] [place] [address] Rhea Barney MD Social History Tobacco Use Types Packs/Day [...] on filedocumented in this encounter Care Teams Interstate Bus Dispatcher Relationship Specialty Start Date End Date Kaya Justice MD PCP - General 02/03/1998 10/18/12 Robyn Menendez MD [address] [place] [address] PCP - General Pediatrics 10/19/12 11/24/15 Neda Burgess MD [address] [place] [address] PCP - General Internal Medicine 11/25/15 documented as of this encounter
--- OUTSIDE RECORDS SUMMARY | 2024-12-19 12:04 | XMS_ITS | Encounter Summary ---
[facility] Organization [facility] Address [address] [place] [address] Care Team Providers Care Live Source Operator Name Role Phone Robyn Menendez MD Primary Care Prov ider Neda Burgess MD Primary Care Provider Unavailable Encounter Details Date Type Department Care Team Description 06/26/2014 Customer Assistance Associate Report Medical Records [address] [place] [id number] Social History Tobacco Use Types Packs/Day Years [...] on filedocumented in this encounter Care Teams Live Source Operator Relationship Specialty Start Date End Date Robyn Menendez MD [address] [place] [address] PCP - General Pediatrics 10/19/12 11/24/15 Neda Burgess MD [address] [place] [address] PCP - General Internal Medicine 11/25/15 documented as of this encounter
--- OUTSIDE RECORDS SUMMARY | 2024-12-19 12:04 | XMS_ITS | Encounter Summary ---
Author Organization [facility] Address [address] [place] [address] Care Team Providers Care Aviation Technician Name Role Phone Kaya Justice MD Primary Care Provider Unavaila ble Robyn Menendez MD Primary Care Prov ider Neda Burgess MD Primary Care Provider Unavailable Encounter Details Date Type Department Care Team Description 10/26/2010 [facility] Medical Records [address] [place] [address] Makenzie Augustin Social History Tobacco Use Types Packs/Day Years [...] on filedocumented in this encounter Care Teams Aviation Technician Relationship Specialty Start Date End Date Kaya Justice MD PCP - General 02/03/1998 10/18/12 Robyn Menendez MD [address] [place] [address] PCP - General Pediatrics 10/19/12 11/24/15 Neda Burgess MD [address] [place] [address] PCP - General Internal Medicine 11/25/15 documented as of this encounter
--- OUTSIDE RECORDS SUMMARY | 2024-12-19 12:04 | XMS_ITS | Encounter Summary ---
Author Organization [facility] Address [address] [place] [address] Care Team Providers Care Rack Production Worker Name Role Phone Neda Burgess MD Primary Care Provider Unavailable Encounter Details Date Type Department Care Team Description 08/24/2016 Refill OBGYN - [place] [address] [place] [address] Irvin [facility] [address] [place] [address] Social History Tobacco Use Types Packs/Day Years Used Date Smoking Tobacco: Never Smokeless Tobacco: Never Alcohol Use Standard Drinks/Week Comments Yes 0 (1 standard drink = 0.6 oz pur e alcohol) rarely Sex Assigned at Date Recorded Female 05/13/2021 2:37 PM E DT documented as of this encounter Miscellaneous Notes * Telephone Encounter - Milvia Crocker - 08/24/2016 10:36 AM EST WHEN WAS THE PATIENTS LAST ANNUAL ACTIVITIES LEADER EXAM? 11/07/15 Does patient have an upcoming appointment? Yes 11/11/15 (THE MEDICATION REQUESTED IS ON THE MED LIST ABOVE) Did you check the Pharmacy information above?: YES Indicate how soon the patient needs the script: BY THE END OF THE DAY Patient would like script to be: E-PRESCRIBED/FAXED TO PHARMACY Is the doctor here today?: YES Can the message wait until the doctor returns?: NO Has the patient been told that the prescription will not be filled until the end of the day? YES Payor: [employer] / Plan: PPO $30 [place] [id number] / Product Type: PPO [id number] documented in this encounter Plan of Treatment Not on file documented as of this encounter Visit Diagnoses Not on filedocumented in this encounter Care Teams Rack Production Worker Relationship Specialty Start Date End Date Neda Burgess MD PCP - General Internal Medicine 11/25/15 documented as of this encounter
--- OUTSIDE RECORDS SUMMARY | 2024-12-19 12:04 | XMS_ITS | Encounter Summary ---
Author Organization [facility] Address [address] [place] [address] Care Team Providers Care Sociology Research Assistant Name Role Phone Kaya Justice MD Primary Care Provider Unavaila ble Robyn Menendez MD Primary Care Prov ider Neda Burgess MD Primary Care Provider Unavailable Encounter Details Date Type Department Care Team Description 03/28/2012 Release of Information Medical Records [address] [place] [address] Abstract, Provider Social History Tobacco Use Types [...] on filedocumented in this encounter Care Teams Sociology Research Assistant Relationship Specialty Start Date End Date Kaya Justice MD PCP - General 02/03/1998 10/18/12 Robyn Menendez MD [address] [place] [address] PCP - General Pediatrics 10/19/12 11/24/15 Neda Burgess MD [address] [place] [address] PCP - General Internal Medicine 11/25/15 documented as of this encounter
--- OUTSIDE RECORDS SUMMARY | 2024-12-19 12:04 | XMS_ITS | Clinical Summary ---
[facility] Organization [facility] Address [address] [place] [address] Care Team Providers Care Jewelry Polisher Name Role Phone Neda Burgess MD Primary Care Provider Unavailable Allergies Active Allergy Reactions Severity Noted Date Comments Apap-Fd&C Red #40 Al Cosme-Oxycodone 09/22/2016 Medications Medication Sig Dispensed Refills Start Date End Date Status ibuprofen (ADVIL,MOTRIN) 800 MG tablet Take 1 Tab by mouth every 8 hours as needed for Pain for up to 5 days. 15 Tab 0 02/07/2019 Active Erenumab-aooe 70 MG/ML Solution Auto-injector Inject into the skin. 0 Active Active Problems Problem Noted Date Chronic nonintractable headache 06/13/20 17 Headache 03/22/2012 Overview: Migraine-is treated preventively with Periactin -with good reduction of headache frequency.Motrin PRN headache. Childhood obesity 11/17/2011 Depression 02/18/2011 Overview: In therapy and also seen by / Jenise Saez, a psychiatrist at [facility] and was started on Zoloft 12.25 mg to be increase to 25 mg on 03/25/12 Currently not on medications, not seeing therapist. Knee pain 11/19/2009 Immunizations Name Administration Dates Next Due DTP 03/08/1996,01/13/1996,1995 DTaP 1999,03/18/1997 HIB 12/17/1996,03/08/1996,01/13/1996 ,1995 HPV (Gardasil) 11/14/2008,01/08/2008,11/08/2007 Hepatitis B-3 Dose (<19yrs) 06/15/1996, 6,1995 Influenza (> 6 Months) 07/05/2012,11/19/2009,,11/08/2007 MMR (Lpbumhy-Hjahm-Iqvnyqw) 09/15/2000, 7 Meningococcal (Menactra) 06/12/2013,09/26/2006 PPD-RBMG 12/04/2013,09/17/1996 Polio (IPV) 1999 Polio (OPV) 03/08/1996,01/13/1996,1995 Tdap 09/26/2006 Varicella 11/19/2009,09/17/1996 Family History Medical History Relation Name Comments Diabetes Paternal Grandmother Relation Name Status Comments Brother Alive 07/10/97 Father Alive 11/28/66 Mother Alive 01/17/66 Paternal Grandmother Social History Tobacco Use Types Packs/Day Years Used Date Smoking Tobacco: Never Smokeless Tobacco: Never Tobacco Cessation:Counseling Given: Not Answered Alcohol Use Standard Drinks/Week Comments Yes 0 (1 standard drink = 0.6 oz pur e alcohol) rarely Sex Assigned at Date Recorded Female 05/13/2021 2:37 PM E DT Last Filed Vital Signs Vital Sign Reading Time Taken Comments Blood Pressure 118/76 09/27/2022 9:55 AM EST Pulse 86 09/27/2022 9:55 AM EST Temperature 36.8 ??C (98.3 ??F) 03/19/2019 9:53 AM ED T Respiratory Rate 16 03/19/2019 9:53 AM EDT Oxygen Saturation 99% 10/16/2018 1:26 PM EST Inhaled Oxygen Concentration - - Weight 110.7 kg (244 lb) 09/27/2022 9:55 AM EST Height 149.9 cm (4' 11 ) 09/27/2022 9:55 AM EST Body Mass Index 49.28 09/27/2022 9:55 AM EST Plan of Treatment Health Maintenance Due Date Last Done Comments Covid-19 Vaccine (#1) 03/14/1996 DTAP/TDAP/TD (7 - Td or Tdap) 09/26/2016, 1999, 03/18/1997, Additional history exists BASELINE HEALTH EXAM 18-39 12/14/2020, 02/01/2014, 02/01/2014 CHOLESTEROL SCREENING 12/14/2020 12/15/2015, 012 CERVICAL CANCER SCREENING 02/04/2024 02/03/2021, INFLUENZA (#1) 2024 12/15/2015 (Refu sed), 07/05/2012, 11/19/2009, Additional history exists BMI CHECK/ADVISE 10/17/2024 09/27/2022, 09/2022, 02/03/2021, Additional history exists PNEUMOCOCCAL VACCINE FOR HIG H RISK PATIENTS (#1) 2060 Care Teams Jewelry Polisher Relationship Specialty Start Date End Date Neda Burgess MD PCP - General Internal Medicine 11/25/15
--- OUTSIDE RECORDS SUMMARY | 2024-12-19 12:04 | XMS_ITS | Encounter Summary ---
Author Organization [facility] Address [address] [place] [address] Care Team Providers Care Port Purser Name Role Phone Kaya Justice MD Primary Care Provider Unavaila ble Robyn Menendez MD Primary Care Prov ider Neda Burgess MD Primary Care Provider Unavailable Encounter Details Date Type Department Care Team Description 11/17/2010 Ocean Forwarder Report Medical Records [address] [place] [address] Rhea Barney MD Social History Tobacco Use [...] on filedocumented in this encounter Care Teams Port Purser Relationship Specialty Start Date End Date Kaya Justice MD PCP - General 02/03/1998 10/18/12 Robyn Menendez MD [address] [place] [address] PCP - General Pediatrics 10/19/12 11/24/15 Neda Burgess MD [address] [place] [address] PCP - General Internal Medicine 11/25/15 documented as of this encounter
--- OUTSIDE RECORDS SUMMARY | 2024-12-19 12:04 | XMS_ITS | Encounter Summary ---
Author [facility] Address [address] [place] [address] Care Team Providers Care Devops Solutions Architect Name Role Phone Neda Burgess MD Primary Care Provider Unavailable Encounter Details Date Type Department Care Team Description 08/29/2018 Biological Inspector Report Medical Records [address] [place] [address] Miranda Bennett MD Social History Tobacco Use [...] on filedocumented in this encounter Care Teams Devops Solutions Architect Relationship Specialty Start Date End Date Neda Burgess MD PCP - General Internal Medicine 11/25/15 documented as of this encounter
--- OUTSIDE RECORDS SUMMARY | 2024-12-19 12:04 | XMS_ITS | Encounter Summary ---
[facility] Address [address] [place] [address] Care Team Providers Care Custom Van Converter Name Role Phone Neda Burgess MD Primary Care Provider Unavailable Encounter Details Date Type Department Care Team Description 01/05/2021 Dog Bather Report Medical Records [address] [place] [phone] Monae Nieves Social History Tobacco Use Types Packs/Day Years [...] on filedocumented in this encounter Care Teams Custom Van Converter Relationship Specialty Start Date End Date Neda Burgess MD PCP - General Internal Medicine 11/25/15 documented as of this encounter
--- OUTSIDE RECORDS SUMMARY | 2024-12-19 12:04 | XMS_ITS | Encounter Summary ---
Author Organization [facility] Address [address] [place] [address] Care Team Providers Care Auto Adjudication Specialist Name Role Phone Kaya Justice MD Primary Care Provider Unavaila Robyn Nettles MD Primary Care Prov ider Neda Burgess MD Primary Care Provider Unavailable Reason for Visit * Reason Onset Date Comments Sybase Developer Feedback 09/25/2010 [facility] Encounter Details Date Type Department Care Team Description 09/25/2010 Telephone Pediatrics - [address] [address] Kaya Justice MD Sybase Developer Feedback ([facility]) Social History Tobacco Use Types Packs/Day Years Used Date Smoking Tobacco: Never Alcohol Use Standard Drinks/Week Comments Not Asked 0 (1 standard drink = 0.6 oz pur e alcohol) Sex Assigned at Date Recorded Female 05/13/2021 2:37 PM E DT documented as of this encounter Miscellaneous Notes * Telephone Encounter - Eneida Harrison - 10/05/2010 10:42 AM EST Please sign order. * Telephone Encounter - Kaya Justice MD - 10/02/2010 6:39 PM EST OK Kaya Justice MD * Telephone Encounter - Robert Dietrich - 09/25/2010 1:54 PM EST Per [facility], they will not see the patient with this diagnosis. They suggested that the patient goes to [facility]. An order has been created. documented in this encounter Plan of Treatment Not on file documented as of this encounter Visit Diagnoses Not on filedocumented in this encounter Care Teams Auto Adjudication Specialist Relationship Specialty Start Date End Date Kaya Justice MD PCP - General 02/03/1998 10/18/12 Robyn Menendez MD [address] [place] [address] PCP - General Pediatrics 10/19/12 11/24/15 Neda Burgess MD [address] [place] [address] PCP - General Internal Medicine 11/25/15 documented as of this encounter
--- OUTSIDE RECORDS SUMMARY | 2024-12-19 12:04 | XMS_ITS | Encounter Summary ---
Author Organization [facility] Address [address] [place] [address] Care Team Providers Care Hospitality Coordinator Name Role Phone Robyn Menendez MD Primary Care Prov ider Neda Burgess MD Primary Care Provider Unavailable Reason for Visit * Reason Onset Date Comments refill request 01/15/2015 fiona Encounter Details Date Type Department Care Team Description 01/15/2015 Refill OBGYN - [place] [address] [place] [address] Yesenia Rehman, [facility] [address] [place] [address] refill request (fiona) Social History Tobacco Use Types Packs/Day Years Used Date Smoking Tobacco: Never Smokeless Tobacco: Never Alcohol Use Standard Drinks/Week Comments No 0 (1 standard drink = 0.6 oz pur e alcohol) Sex Assigned at Date Recorded Female 05/13/2021 2:37 PM E DT documented as of this encounter Miscellaneous Notes * Telephone Encounter - Yesenia Rehman - 01/15/2015 12:56 PM EDT Please kiana annual exam * Telephone Encounter - Dorcas Montoya R.N. - 01/15/2015 11:56 AM EDT Letter sent. * Telephone Encounter - Milvia Crocker - 01/15/2015 8:39 AM EDT WHEN WAS THE PATIENTS LAST ANNUAL PETS AND PET SUPPLIES SALESPERSON EXAM? 03/13/14 Does patient have an upcoming appointment? No (THE MEDICATION REQUESTED IS ON THE MED [...] the end of the day? YES Payor: COLIN/PPO POS / Plan: BUD PPO F 1+/$20 / Product Type: PPO [id number] documented in this encounter Plan of Treatment Not on file documented as of this encounter Visit Diagnoses Not on filedocumented in this encounter Care Teams Hospitality Coordinator Relationship Specialty Start Date End Date Robyn Menendez MD [address] [place] [address] PCP - General Pediatrics 10/19/12 11/24/15 Neda Burgess MD [address] [place] [address] PCP - General Internal Medicine 11/25/15 documented as of this encounter
--- OUTSIDE RECORDS SUMMARY | 2024-12-19 12:04 | XMS_ITS | Encounter Summary ---
Author Organization [facility] Address [address] [place] [address] Care Team Providers Care Improvement Auditor Name Role Phone Neda Burgess MD Primary Care Provider Unavailable Encounter Details Date Type Department Care Team Description 05/10/2020 Refill OBGYN - [place] [address] [place] [address] Jacob Irvin CNM [address] [place] [address] Social History Tobacco Use Types Packs/Day Years Used Date Smoking Tobacco: Never Smokeless Tobacco: Never Alcohol Use Standard Drinks/Week Comments Yes 0 (1 standard drink = 0.6 oz pur e alcohol) rarely Sex Assigned at Date Recorded Female 05/13/2021 2:37 PM E DT documented as of this encounter Miscellaneous Notes * Telephone Encounter - Jacob Irvin CNM - 05/13/2020 5:53 AM EDT Dorcas not sure which address is [facility] please send * Telephone Encounter - Luna Ulloa - 05/12/2020 1:41 PM EDT Patient called back and she had requested to have script sent to [facility] not [facility]. Please resend to correct pharmacy * Telephone Encounter - Chioma Mo - 05/12/2020 9:41 AM EDT Pt booked for ag 07/09 in [place] with [facility] - pt asking for the [facility] * Telephone Encounter - Aditi Seymour R.N. - 05/12/2020 9:18 AM EDT [facility] for mail order refill. Pt is also overdue for annual, last seen 03/09/19. Pt reminded to schedule annual exam. Of note - please review 2018 consult notes scanned in computer. Pt has Hx Migraines - follows neuro. documented in this encounter Plan of Treatment Not on file documented as of this encounter Visit Diagnoses Not on filedocumented in this encounter Care Teams Improvement Auditor Relationship Specialty Start Date End Date Neda Burgess MD PCP - General Internal Medicine 11/25/15 documented as of this encounter
--- OUTSIDE RECORDS SUMMARY | 2024-12-19 12:04 | XMS_ITS | Encounter Summary ---
Author Organization [facility] Address [address] [place] [address] Care Team Providers Care Mac Operator Name Role Phone Robyn Menendez MD Primary Care Prov ider Neda Burgess MD Primary Care Provider Unavailable Reason for Visit * Reason Onset Date Comments skin problems 07/24/2013 Encounter Details Date Type Department Care Team Description 07/24/2013 Telephone Pediatrics - [address] [address] Robyn Menendez MD [address] [place] [address] skin problems Social History Tobacco Use Types Packs/Day Years Used Date Smoking Tobacco: Never Smokeless Tobacco: Never Alcohol Use Standard Drinks/Week Comments No 0 (1 standard drink = 0.6 oz pur e alcohol) Sex Assigned at Date Recorded Female 05/13/2021 2:37 PM E DT documented as of this encounter Miscellaneous Notes * Telephone Encounter - Zarina Garcia L.P.N. - 07/24/2013 3:43 PM EDT Please advise? * Telephone Encounter - María Schafer - 07/24/2013 3:32 PM EDT Symptoms patient is presenting: Patient getting patches on skin again;was seen 07/06/13 for this andit's come back. She is on Sertraline, Oxcarbazepine, Quetiapine, and VIorele(for control). Should mom get a referral to an cheese maker at this point? How long has patient had these symptoms?: seen 07/06/13 PCP: Robyn Menendez Payor: COLIN/RICHARDO POS Plan: PPO $20 [place] [id number] Product Type: PPO [id number] documented in this encounter Plan of Treatment Not on file documented as of this encounter Visit Diagnoses Not on filedocumented in this encounter Care Teams Mac Operator Relationship Specialty Start Date End Date Robyn Menendez MD [address] [place] [address] PCP - General Pediatrics 10/19/12 11/24/15 Neda Burgess MD [address] [place] [address] PCP - General Internal Medicine 11/25/15 documented as of this encounter
--- OUTSIDE RECORDS SUMMARY | 2024-12-19 12:04 | XMS_ITS | Encounter Summary ---
Author Organization [facility] Address [address] [place] [address] Care Team Providers Care Nut Roaster Name Role Phone Kaya Justice MD Primary Care Provider Unavaila ble Robyn Menendez MD Primary Care Prov ider Neda Burgess MD Primary Care Provider Unavailable Encounter Details Date Type Department Care Team Description 06/04/2011 [facility] Proxy Form Medical Records [address] [place] [id number] Abstract, Provider Social History Tobacco Use Types [...] on filedocumented in this encounter Care Teams Nut Roaster Relationship Specialty Start Date End Date Kaya Justice MD PCP - General 02/03/1998 10/18/12 Robyn Menendez MD [address] [place] [address] PCP - General Pediatrics 10/19/12 11/24/15 Neda Burgess MD [address] [place] [address] PCP - General Internal Medicine 11/25/15 documented as of this encounter
--- OUTSIDE RECORDS SUMMARY | 2024-12-19 12:04 | XMS_ITS | Encounter Summary ---
Author Organization [facility] Address [address] [place] [address] Care Team Providers Care Mixing And Dispensing Supervisor Name Role Phone Robyn Menendez MD Primary Care Prov ider Neda Burgess MD Primary Care Provider Unavailable Reason for Visit * Reason Onset Date Comments REFERRAL 09/04/2013 needs to entered as priority/urgent or they have to wait until October Encounter Details Date Type Department Care Team Description 09/04/2013 Telephone Pediatrics - [address] [address] Robyn Menendez MD [address] [place] [address] REFERRAL (needs to entered as priority/urgent or they have to wait until October) Social History Tobacco Use Types Packs/Day Years Used Date Smoking Tobacco: Never Smokeless Tobacco: Never Alcohol Use Standard Drinks/Week Comments No 0 (1 standard drink = 0.6 oz pur e alcohol) Sex Assigned at Date Recorded Female 05/13/2021 2:37 PM E DT documented as of this encounter Miscellaneous Notes * Telephone Encounter - María Schafer - 09/04/2013 9:17 AM EST Symptoms patient is presenting: Mom called Dermatology in [place] and they can't get Kayleigh in until October unless doctor indicates urgent on the referral. Mom doesn't feel daughter can wait until then. How long has patient had these symptoms?: n/a PCP: Robyn Menendez Payor: COLIN/PPKaushik POS Plan: PPO $20 [id number] Product Type: PPO [id number] documented in this encounter Plan of Treatment Not on file documented as of this encounter Visit Diagnoses Not on filedocumented in this encounter Care Teams Mixing And Dispensing Supervisor Relationship Specialty Start Date End Date Robyn Menendez MD [address] [place] [address] PCP - General Pediatrics 10/19/12 11/24/15 Neda Burgess MD [address] [place] [address] PCP - General Internal Medicine 11/25/15 documented as of this encounter
--- OUTSIDE RECORDS SUMMARY | 2024-12-19 12:04 | XMS_ITS | Encounter Summary ---
Author Organization [facility] Address [address] [place] [address] Care Team Providers Care Enterprise Systems Manager Name Role Phone Robyn Menendez MD Primary Care Prov ider Neda Burgess MD Primary Care Provider Unavailable Reason for Visit * Reason Comments E-prescribe Rx Request Encounter Details Date Type Department Care Team Description 02/08/2013 Refill OBN - [place] [address] [place] [address] Desirae Jarvis CNM E-prescribe Rx Request Social History Tobacco Use Types Packs/Day Years [...] on filedocumented in this encounter Care Teams Enterprise Systems Manager Relationship Specialty Start Date End Date Robyn Menendez MD [address] [place] [address] PCP - General Pediatrics 10/19/12 2 Neda Burgess MD [address] [place] [address] PCP - General Internal Medicine 11/25/15 documented as of this encounter
--- OUTSIDE RECORDS SUMMARY | 2024-12-19 12:04 | XMS_ITS | Encounter Summary ---
Author Organization [facility] Address [address] [place] [address] Care Team Providers Care Soda Column Operator Name Role Phone Robyn Menendez MD Primary Care Prov ider Neda Burgess MD Primary Care Provider Unavailable Encounter Details Date Type Department Care Team Description 11/06/2013 Pt. Non Urgent Medical Question [facility] [address] [place] [address] Robyn Menendez MD [address] [place] [address] Social History Tobacco Use Types Packs/Day Years Used Date Smoking Tobacco: Never Smokeless Tobacco: Never Alcohol Use Standard Drinks/Week Comments No 0 (1 standard drink = 0.6 oz pur e alcohol) Sex Assigned at Date Recorded Female 05/13/2021 2:37 PM E DT documented as of this encounter Progress Notes * Maddison Cobian M.A. - 11/06/2013 9:26 AM ESTFrom: SKYLARKAYLEIGH To: Alis Menendez MD Sent: TueNov 06, 2013 8:16 AM Subject: Kayleigh Calling in for Kayleigh, she is staying home today due to having a small fever and stomach ache and needs a note saying we called in for Medical Advice , shes laying down, drinking fluids documented in this encounter Plan of Treatment Not on file documented as of this encounter Visit Diagnoses Not on filedocumented in this encounter Care Teams Soda Column Operator Relationship Specialty Start Date End Date Robyn Menendez MD [address] [place] [address] PCP - General Pediatrics 10/19/12 11/24/15 Neda Burgess MD [address] [place] [address] PCP - General Internal Medicine 11/25/15 documented as of this encounter
== END 2024-12-19 11:08 | disposition home or self-care (01) ==
PROVIDERS: PCP Physician Assistant; Visit Provider Physician Assistant
DX: G43.709 Chronic migraine without aura, not intractable, without status migrainosus (principal); F41.1 Generalized anxiety disorder; F33.0 Major depressive disorder, recurrent, mild

== ENCOUNTER → 2024-12-19 10:12 | Outpatient (BNVA) | payer OTHER, SELFPAY | PROVIDERS: PCP Physician Assistant; Visit Provider Physician Assistant | DX: G43.709 Chronic migraine without aura, not intractable, without status migrainosus (principal); F41.1 Generalized anxiety disorder; F33.0 Major depressive disorder, recurrent, mild; Z79.899 Other long term (current) drug therapy | CPT/HCPCS: 96127 ==

== ENCOUNTER 2025-01-25 08:57 | Day surgery (SDC) | payer OTHER, SELFPAY ==
--- NOTE | ~2025-01-25 | FL_ITS ---
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 TECHNIQUE: Following explaining fluoroscopy-guided lumbar puncture procedure, benefits in risk, a consent was obtained from the patient. Patient was placed prone on fluoroscopy table and preliminary imaging was performed. Optimal site was selected and marked at along the left para midline L3-4 disc level. The area marked was cleaned and draped in usual sterile manner with 2% chlorhexidine solution. 1% lidocaine was injected puncture site. A 20-gauge 7 inch needle was inserted from the left para midline skin marker intrathecally at the L3-4 disc level. After removing stylet and observing fluid return, patient was quickly placed in left lateral decubitus view and opening CSF pressure was obtained. Fluid was then collected in 4 test tubes. Postprocedure stylet was reintroduced and needle withdrawn. Complete hemostasis achieved at puncture site. Patient tolerated procedure extremely well. FINDINGS: The opening CSF pressure measures 26 cm of water. Approximately 16 mL of clear CSF fluid was collected in 4 test tubes and sent to lab as requested. FLUOROSCOPY TIME: 16 seconds DOSE AREA PRODUCT: 65.4 uGy-m2 (microgray-meter squared) FL/FL guided lumbar puncture LP IMPRESSION: Successful fluoroscopy-guided lumbar vertebra performed without immediate complications. Electronically signed by: Clayton Bernstein MD 01/25/2025 02:06 PM EDT
[2025-01-25 09:09] VITALS: BMI 55.1
[2025-01-25 09:24] VITALS: BP 133/85; PULSE 92; RESP 16; TEMP 36.6; O2SAT 97
[2025-01-25 09:27] LABS: UPreg QC Valid YES; Urine Pregnancy NEGATIVE (NEGATIVE)
[2025-01-25 09:35] LABS: MANUAL DIFF FLAG NO
[2025-01-25 09:36] LABS: Basophils Absolute Auto 0.1 X10*3/uL (0.0-0.2); Basophils Percent Auto 0.6 % (0-2); Eosinophils Absolute Auto 0.2 X10*3/uL (0.0-0.4); Eosinophils Percent Auto 2.2 % (0-4); Imm Gran Abs Auto 0.02 X10*3/uL (0.00-0.03); Imm Gran Pct Auto 0.2 % (0.0-0.4); Lymphocytes Percent Auto 33.6 % (20-40); Mean Corpuscular HGB Conc 33.3 g/dl (31.0-35.0); Mean Corpuscular Hemoglobin 28.5 pg (27.0-33.0); Mean Corpuscular Volume 85.4 fL (80.0-98.0); Mean Platelet Volume 10.3 fL (9.4-12.3); Monocytes Absolute Auto 0.5 X10*3/uL (0.1-1.2); Monocytes Percent Auto 6.2 % (2-11); Neutrophils Percent Auto 57.2 % (45-73); Platelet Count 425 X10*3/uL (160-400); Red Blood Count 4.92 X10*6/uL (4.20-5.50); Red Cell Distribution Width 13.2 % (11.0-16.0); White Blood Count 8.8 X10*3/uL (4.8-10.8)
[2025-01-25 09:45] LABS: INTERNATIONAL NORM RATIO 1.1 (0.9-1.1); Prothrombin Time 12.7 SEC (10.9-12.4)
[2025-01-25 09:48] LABS: Anion Gap 14 (12-20); Blood Urea Nitrogen 14 mg/dL (9-16); Calcium 9.1 mg/dL (8.4-10.2); Carbon Dioxide 23 mmol/L (22-29); Chloride 109 mmol/L (96-108); Creatinine Clr Calc Pharmacy 156.8; Estimated Glomerular Filt Rate > 60; Glucose Random 97 mg/dL (60-115); Potassium 4.5 mmol/L (3.3-5.1); Sodium 141 mmol/L (135-145)
[2025-01-25 11:50] VITALS: BP 133/78; PULSE 72; RESP 16; TEMP 36.1; O2SAT 98
[2025-01-25 12:20] VITALS: BP 114/60; PULSE 70; RESP 16; O2SAT 98
[2025-01-25 12:21] LABS: CSF Appearance Clear, Colorless; CSF Tube # 3
[2025-01-25 12:34] LABS: Glucose CSF 62 mg/dL; Total Protein CSF 16.7 mg/dL (15-45)
[2025-01-25 12:50] VITALS: BP 126/77; PULSE 63; RESP 16; O2SAT 98
[2025-01-25 13:20] VITALS: BP 116/69; PULSE 69; RESP 16; O2SAT 98
[2025-01-25 13:50] VITALS: BP 113/71; PULSE 78; RESP 16; O2SAT 98
[2025-01-25 15:10] LABS: Appearance CSF CLEAR; CSF Tube # 1; Color CSF COLORLESS; Red Blood Cell CSF 0 MM*3; White Blood Cell CSF 1 MM*3
[2025-01-25 15:11] LABS: Lymphocytes CSF 100 %
[2025-01-25 15:13] LABS: Appearance CSF CLEAR; CSF Tube # 4; Color CSF COLORLESS; Red Blood Cell CSF 0 MM*3; White Blood Cell CSF 1 MM*3
[2025-01-25 15:14] LABS: Lymphocytes CSF 100 %
== END 2025-01-25 14:07 | disposition home or self-care (01) ==
PROVIDERS: Physician Assistant Surgical; Radiology Diagnostic Radiology; Visit Provider Nurse Practitioner Family
PROC: 009U3ZZ Drainage of Spinal Canal, Percutaneous Approach (ICD-10-PCS; CPT 62270; principal; 2025-01-25 11:00)
DX: G43.109 Migraine with aura, not intractable, without status migrainosus (principal); H53.8 Other visual disturbances; R42 Dizziness and giddiness; E23.6 Other disorders of pituitary gland; R53.83 Other fatigue; R63.5 Abnormal weight gain; Z68.43 Body mass index [BMI] 50.0-59.9, adult; F32.A Depression, unspecified; Z79.899 Other long term (current) drug therapy; Z88.5 Allergy status to narcotic agent; F17.210 Nicotine dependence, cigarettes, uncomplicated; F12.90 Cannabis use, unspecified, uncomplicated; Z98.890 Other specified postprocedural states
CPT/HCPCS: 36415; 62328; 80048; 81025; 82945; 84157; 85025; 85610; 87015; 87070; 87205; 89051; J2003

== ENCOUNTER → 2025-01-25 11:00 | Outpatient (BNV) | payer OTHER, SELFPAY | PROVIDERS: Visit Provider Radiology Diagnostic Radiology | DX: E23.6 Other disorders of pituitary gland (principal) | CPT/HCPCS: 62328 ==

== ENCOUNTER → 2025-02-26 12:40 | Outpatient (BNV) | payer OTHER, SELFPAY | PROVIDERS: PCP Physician Assistant; Visit Provider Radiology Diagnostic Radiology | DX: G93.2 Benign intracranial hypertension (principal) | CPT/HCPCS: 70546 ==

== ENCOUNTER 2025-02-26 12:43 | Outpatient (REF) | payer OTHER, SELFPAY ==
--- NOTE | ~2025-02-26 | MR_ITS ---
EXAMINATION: MRV BRAIN WITH IV CONTRAST. CLINICAL INFORMATION: Benign intracranial hypertension. TECHNIQUE: Coronal 2-D zfxp-re-nnmxio and maximum intensity projections. Total of 10 cc of gadolinium based (Gadavist) without reported immediate complications. COMPARISON: None FINDINGS: The superior sagittal sinus, internal cerebral veins, straight sinus, vein of Carlos A, thoracolumbar, transverse and sigmoid sinuses are patent without intraluminal filling defects. There is a dominant left transverse sinus. The internal jugular bulbs and included segments of the internal jugular veins are patent without intraluminal filling defects. MR/MR venography head wo/w con IMPRESSION: Normal MRV brain. Electronically signed by: Beau Jones MD 02/26/2025 01:59 PM EDT
[2025-02-26] MEDS: gadobutroL 10 ML VIAL IVPUSH (13:41)
--- OUTSIDE RECORDS SUMMARY | 2025-02-26 13:45 | XMS_ITS | Encounter Summary ---
Author Organization [facility] Address [address] [place] [address] Care Team Providers Care Beater Out Leveling Machine Name Role Phone Robyn Menendez MD Primary Care Prov ider Neda Burgess MD Primary Care Provider Unavailable Reason for Visit * Reason Onset Date Comments REFERRAL 09/04/2013 needs to entered as priority/urgent or they have to wait until October Encounter Details Date Type Department Care Team Description 09/04/2013 Telephone Pediatrics - [address] [address] Robyn Menendez MD [address] [place] [address] REFERRAL (needs to entered as priority/urgent or [...] patient is presenting: Mom called Dermatology in [place] and they can't get Kayleigh in until October unless doctor indicates urgent on the referral. Mom doesn't feel daughter can wait until then. How long has patient had these symptoms?: n/a PCP: Robyn Menendez Payor: COLIN/PPKaushik POS Plan: PPO $20 [id number] Product Type: PPO [id number] documented in this encounter Plan of Treatment Not on file documented as of this encounter Visit Diagnoses Not on filedocumented in this encounter Care Teams Beater Out Leveling Machine Relationship Specialty Start Date End Date Robyn Menendez MD [address] [place] [address] PCP - General Pediatrics 10/19/12 11/24/15 Neda Burgess MD [address] [place] [address] PCP - General Internal Medicine 11/25/15 documented as of this encounter
--- OUTSIDE RECORDS SUMMARY | 2025-02-26 13:45 | XMS_ITS | Encounter Summary ---
Author Organization [facility] Address [address] [place] [address] Care Team Providers Care Cutter Aluminum Sheet Name Role Phone Robyn Menendez MD Primary Care Prov ider Neda Burgess MD Primary Care Provider Unavailable Encounter Details Date Type Department Care Team Description 11/06/2013 Pt. Non Urgent Medical Question [facility] [address] [place] [address] Robyn Menendez MD [address] [place] [address] Social History Tobacco Use Types Packs/Day Years Used Date Smoking Tobacco: Never Smokeless Tobacco: Never Alcohol Use Standard Drinks/Week Comments No 0 (1 standard drink = 0.6 oz pur e alcohol) Sex Assigned at Date Recorded Female 05/13/2021 2:37 PM E DT documented as of this encounter Progress Notes * Maddison Cobian M.A. - 11/06/2013 9:26 AM ESTFrom: SKYLARKAYLEIGH DICKSON To: Alis Menendez MD Sent: TueNov 06, [...] on filedocumented in this encounter Care Teams Cutter Aluminum Sheet Relationship Specialty Start Date End Date Robyn Menendez MD [address] [place] [address] PCP - General Pediatrics 10/19/12 11/24/15 Neda Burgess MD [address] [place] [address] PCP - General Internal Medicine 11/25/15 documented as of this encounter
--- OUTSIDE RECORDS SUMMARY | 2025-02-26 13:45 | XMS_ITS | Encounter Summary ---
Author Organization [facility] Address [address] [place] [address] Care Team Providers Care Tire Repairer Name Role Phone Neda Burgess MD Primary Care Provider Unavailable Reason for Visit * Reason Onset Date Comments refill request 12/21/2016 dr moreno Encounter Details Date Type Department Care Team Description 12/21/2016 Refill OBGYN - [place] [address] [place] [address] Marina Whiteside DO refill request (dr moreno) Social History Tobacco Use Types Packs/Day Years Used Date Smoking Tobacco: Never Smokeless Tobacco: Never Alcohol Use Standard Drinks/Week Comments Yes 0 (1 standard drink = 0.6 oz pur e alcohol) rarely Sex Assigned at Date Recorded Female 05/13/2021 2:37 PM E DT documented as of this encounter Miscellaneous Notes * Telephone Encounter - Milvia Crocker - 12/21/2016 9:20 AM EST Appt given 01/25/[address] moreno for ag * Telephone Encounter - Dorcas Montoya R.N. - 12/21/2016 9:12 AM EST Pt needs annual * Telephone Encounter - Milvia Crocker - 12/21/2016 9:04 AM EST WHEN WAS THE PATIENTS LAST ANNUAL SUPERVISOR/PORT DIRECTOR EXAM? 11/07/15 Does patient have an upcoming appointment? No [...] day? YES Payor: COLIN/PPO POS / Plan: PPO $30 [place] [id number] / Product Type: PPO [id number] documented in this encounter Plan of Treatment Not on file documented as of this encounter Visit Diagnoses Not on filedocumented in this encounter Care Teams Tire Repairer Relationship Specialty Start Date End Date Neda Burgess MD PCP - General Internal Medicine 11/25/15 documented as of this encounter
--- OUTSIDE RECORDS SUMMARY | 2025-02-26 13:45 | XMS_ITS | Encounter Summary ---
Author Organization [facility] Address [address] [place] [address] Care Team Providers Care Animal Scientist Name Role Phone Robyn Menendez MD Primary Care Prov ider Neda Burgess MD Primary Care Provider Unavailable Reason for Visit * Reason Onset Date Comments refill request 01/15/2015 fiona Encounter Details Date Type Department Care Team Description 01/15/2015 Refill OBGYN - [place] [address] [place] [address] Yesenia Rehman, [facility] [address] [place] [address] refill request (fiona) Social History [...] EDT WHEN WAS THE PATIENTS LAST ANNUAL SENIOR DENTIST EXAM? 03/13/14 Does patient have an upcoming [...] PPO F 1+/$20 / Product Type: PPO [id number] documented in this encounter Plan of Treatment Not on file documented as of this encounter Visit Diagnoses Not on filedocumented in this encounter Care Teams Animal Scientist Relationship Specialty Start Date End Date Robyn Menendez MD [address] [place] [address] PCP - General Pediatrics 10/19/12 11/24/15 Neda Burgess MD [address] [place] [address] PCP - General Internal Medicine 11/25/15 documented as of this encounter
--- OUTSIDE RECORDS SUMMARY | 2025-02-26 13:45 | XMS_ITS | Encounter Summary ---
Author Organization [facility] Address [address] [place] [address] Care Team Providers Care Business Intelligence Director Name Role Phone Robyn Menendez MD Primary Care Prov ider Neda Burgess MD Primary Care Provider Unavailable Encounter Details Date Type Department Care Team Description 12/21/2012 Watch Train Inspector Report Medical Records [address] [place] [address] Juan Robertson DPM Social History Tobacco Use Types Packs/Day Years [...] on filedocumented in this encounter Care Teams Business Intelligence Director Relationship Specialty Start Date End Date Robyn Menendez MD [address] [place] [address] PCP - General Pediatrics 10/19/12 11/24/15 Neda Burgess MD [address] [place], [place] PCP - General Internal Medicine 11/25/15 documented as of this encounter
--- OUTSIDE RECORDS SUMMARY | 2025-02-26 13:45 | XMS_ITS | Encounter Summary ---
Author Organization [facility] Address [address] [place] [address] Care Team Providers Care Branch Specialist Name Role Phone Neda Burgess MD Primary Care Provider Unavailable Encounter Details Date Type Department Care Team Description 01/05/2021 [place] Frame Builder Report Medical Records [address] [place] [address] Monae Nieves Social History Tobacco Use Types [...] on filedocumented in this encounter Care Teams Branch Specialist Relationship Specialty Start Date End Date Neda Burgess MD PCP - General Internal Medicine 11/25/15 documented as of this encounter
--- OUTSIDE RECORDS SUMMARY | 2025-02-26 13:45 | XMS_ITS | Encounter Summary ---
Author Organization [facility] Address [address] [place] [address] Care Team Providers Care Car Dropper Name Role Phone Neda Burgess MD Primary Care Provider Unavailable Encounter Details Date Type Department Care Team Description 07/06/2017 Release of Information Medical Records [address] [place] [address] Abstract, Provider Social History Tobacco Use Types [...] on filedocumented in this encounter Care Teams Car Dropper Relationship Specialty Start Date End Date Neda Burgess MD PCP - General Internal Medicine 11/25/15 documented as of this encounter
--- OUTSIDE RECORDS SUMMARY | 2025-02-26 13:45 | XMS_ITS | Encounter Summary ---
Author Organization [facility] Address [address] [place] [address] Care Team Providers Care Reversing Mill Roller Name Role Phone Kaya Justice MD Primary Care Provider Unavaila ble Robyn Menendez MD Primary Care Prov ider Neda Burgess MD Primary Care Provider Unavailable Encounter Details Date Type Department Care Team Description 11/23/2010 [facility] Medical Records [address] [place] [address] Rhea Barney MD Social History Tobacco Use [...] on filedocumented in this encounter Care Teams Reversing Mill Roller Relationship Specialty Start Date End Date Kaya Justice MD PCP - General 02/03/1998 10/18/12 Robyn Menendez MD [address] [place] [address] PCP - General Pediatrics 10/19/12 11/24/15 Neda Burgess MD [address] [place] [address] PCP - General Internal Medicine 11/25/15 documented as of this encounter
--- OUTSIDE RECORDS SUMMARY | 2025-02-26 13:45 | XMS_ITS | Encounter Summary ---
Author Organization [facility] Address [address] [place] [address] Care Team Providers Care Pepper Picker Name Role Phone Robyn Menendez MD Primary Care Prov ider Neda Burgess MD Primary Care Provider Unavailable Encounter Details Date Type Department Care Team Description 12/26/2012 Release of Information Medical Records [address] [place] [address] Abstract, Provider Social History Tobacco Use Types [...] on filedocumented in this encounter Care Teams Pepper Picker Relationship Specialty Start Date End Date Robyn Menendez MD [address] [place] [address] PCP - General Pediatrics 10/19/12 11/24/15 Neda Burgess MD [address] [place] [address] PCP - General Internal Medicine 11/25/15 documented as of this encounter
--- OUTSIDE RECORDS SUMMARY | 2025-02-26 13:45 | XMS_ITS | Clinical Summary ---
Author Organization [facility] Address [address] [place] [address] Care Team Providers Care Pinion Sorter Name Role Phone Unavailable Primary Care Provider Unavailabl e Social History Tobacco Use Types Packs/Day Years Used Date Smoking Tobacco: Never Assessed Comments Unknown Sex and Gender Information Value Date Recorded Sex Assigned at Not on file Legal Sex Female 3:53 PM EDT Gender Identity Not on file Sexual Orientation [...]
--- OUTSIDE RECORDS SUMMARY | 2025-02-26 13:45 | XMS_ITS | Data Portability ---
Author Organization [place] [facility], [facility] Address [address] [place] [address] Care Team Providers Care File Clerk Data Entry Name Role Phone GALEANA DAI Primary Care Provider Assessment No assessment recorded. Plan of Treatment Reminders Order Date Submit Date Provider Last Modified By Organization Details Last Modified Time Details Appointments None recorded. Lab None recorded. Referral physical therapist referral - Status post excision left midfoot ganglion cyst. Date of surgery 12/06/242024 025 [email or web address] [id number] Not available 12:16:38 Procedures None recorded. Surgeries excision, ganglion cyst, foot (SURG) [email or web address] [place] [address], [address] [place], [address], 14:25:43 Imaging None recorded. Medication Orders None recorded. Patient TargetsNo targets recorded. Patient InstructionsNo instructions recorded. Reason for Referral Physical Therapist Referral for Ganglion cyst of left foot Status post excision left midfoot ganglion cyst. Date of surgery 12/06/24 Referring Physician: Gale Wan, Orthopedic Surgery, Encounter Date: 01/21/2025 Results Created Date Observation Date Name Description Value Unit Range Abnormal Flag Note LastModifiedBy Organization Detail LastModifiedTime 10/15/2010/15/2024 XR, foot, 3 or more view [email or web address] ?Encry pted=s hAaTro YD8dLq bEUv6g %2BXZw aYqtaq 0bqfl% 2Fg9IQ a4ajBk vP9nXo QUaueC m3YtLR FvZlgJ JJ8mAn HZtai3 6l7047 AC0Kqb nqEVKC iKiQtr MwF INTERFACE [facility] [address] [address], [place], [address], 10/15/2024 08:46:52 10/15/20 24 10/15/2024 XR, foot, 3 or more view [email or web address] ?Encry pted=s hAaTro YD8dLq bEUv6g %2BXZw aYqtaq 0bqfl% 2Fg9IQ a4ajBk vP9nXo QUaueC m3YtLR FvZlgJ JJ8mAn HZtai3 9c1068 AC0Kqb nqEVKC iKiQtr MwF [facility] [address] [address], [place], [address], 10/15/2024 08:46:54 10/15/20 24 10/15/2024 XR, ankle , 2 view [email or web address] ?Encry pted=s hAaTro YD8dLq bEUv6g %2BXZw aYqtaq 0bqfl% 2Fg9IQ a4ajBk vP9nXo QUaueC m3YtLR FvZlgJ JJ8mAn HZtai3 9z6180 AC0Kqb nqEVKC jKiQtr MwF [facility] [address] [address], [place], [address], 10/15/2024 08:47:49 10/15/20 24 10/15/2024 XR, ankle , 2 view [email or web address] ?Encry pted=s hAaTro YD8dLq bEUv6g %2BXZw aYqtaq 0bqfl% 2Fg9IQ a4ajBk vP9nXo QUaueC m3YtLR FvZlgJ JJ8mAn HZtai3 3k2024 AC0Kqb nqEVKC jKiQtr MwF INTERFACE [facility] [address], [place], [address], 10/15/2024 08:47:51 10/18/1910/18/2024 MRI, foot, w/o contr ast No observ ation record ed. [email or web address] [facility] [address], [place], [address], 10/25/2024 20:15:44 Result Notes None recorded. Problems Name Problem SNOMED Code Status Onset Date Resolution Date Notes Provider Name and Address Organization Details Recorded Time No complaints 412804475 Active Status : 'A'; Not Available [facility] 4 09:20:08 Pain of right knee joint 7787386346640 00 Active 2023 Marina Case, PT [address], [place], [address] , [facility] 4 22:31:28 Problem Notes None recorded. Procedures Surgical History Date Name Laterality Status Provider Name and Address Organization Details Recorded Time 5 Ankle/Foot Surgery completed Edson Lin [facility] 12/28/2024 09:35:49 5 EXCISION, GANGLION CYST, FOOT (SURG) completed Love marroquin [facility] 12/21/2024 07:44:36 4 06488 Therapeutic Exercise (1:1) cancelled Marina Case, PT [address], [place], [address], [facility] 07/12/2024 17:14:10 4 51316: Manual therapy cancelled Marina Case, PT [address], [place], [address], [facility] 07/12/2024 17:14:10 4 72043 Therapeutic Exercise (1:1) completed Marina Case, PT [address], [place], [address], [facility] 07/10/2024 13:55:47 4 65448: Manual therapy completed Marina , PT [address], [place], [address], [facility] 07/10/2024 13:55:47 4 85254 Therapeutic Exercise (1:1) completed Ivissa Del Angelk, [employer] [address], [place], [address], [facility] 07/06/2024 16:45:15 4 83469: Manual therapy completed Ivis Lara, [employer] [address], [place], [address], [facility] 07/06/2024 16:41:39 4 25678 Therapeutic Exercise (1:1) completed Ivissa Lara, [employer] [address], [place], [address], [facility] 06/14/2024 14:08:10 4 93451: Manual therapy completed Ivis Lara, [employer] [address], [place], [address], [facility] 06/14/2024 09:49:09 4 01434 Therapeutic Exercise (1:1) cancelled Marina Case, PT [address], [place], [address], [facility] 06/05/2024 08:46:00 4 56169: Manual therapy cancelled Marina Wing, PT [address], [place], [address], [facility] 06/05/2024 08:46:01 4 46855 Therapeutic Exercise (1:1) completed Ivissa Lara, [employer] [address], [place], [address], [facility] 05/31/2024 09:39:00 4 39092: Manual therapy completed Ivis Jasak, [employer] [address], [place], [address], [facility] 05/31/2024 09:39:00 4 18008 Therapeutic Exercise (1:1) completed Ivis Satyasak, [employer] [address], [place], [address], [facility] 05/29/2024 09:41:36 4 83373: Manual therapy completed Ivis Jasak, [employer] [address], [place], [address], [facility] 05/29/2024 10:00:22 4 58419 Therapeutic Exercise (1:1) completed Marina Case, PT [address], [place], [address], [facility] 05/23/2024 22:29:11 4 26095: Low complexity PT Eval completed Marina Case, PT [address], [place], [address], [facility] 05/23/2024 22:29:27 Imaging Results Imaging Date Name Status LastModified by Organiz ation Details LastModified Time 10/15/2024 XR, foot, 3 or more view completed INTERFACE [facility] [address], [place], [address], 10/15/2024 08:46:52 10/15/2024 XR, foot, 3 or more view completed INTERFACE [facility] [address], [place], [address], 10/15/2024 08:46:54 10/15/2024 XR, ankle, 2 view completed INTERFACE [facility] [address], [place], [address], 10/15/2024 08:47:49 10/15/2024 XR, ankle, 2 view completed INTERFACE [facility] [address], [place], [address], 10/15/2024 08:47:51 10/18/2024 MRI, foot, w/o contrast completed [email or web address] [facility] [address], [place], [address], 10/25/2024 20:15:44 Procedure Notes None recorded. Medical Equipment None Reported. Allergies Allergen ID Allergen Name Allergen Category Reaction Reaction Severity Criticality Documentation Date Start Date Code Code System Note Provider Name and Address Organization Details Recorded Time 211064 acetamino phen / oxycodone medicatio n Not available Not available Not available 12/19/20232015 87238 3 RxNorm Not Available [facility] 15:49:56 Medications Name Sig Start Date Stop Date Status Note LastModified by Organization Details LastModified Time promethazin e-DM 6.25 mg-15 mg/5 mL oral syrup TAKE 5 ML BY MOUTH EVERY 6 HOURS NEEDED FOR COUGH MAX OF 30 ML / 24 HR 10/12 completed Not Available Not Available Not Available venlafaxine ER 37.5 mg capsule,ext ended release 24 hr TAKE 1 CAPSULE ORALLY DAILY WITH 75 MG CAP TO TOTAL 112.5 MG DAILY active Not Available Not Available No t Available venlafaxine ER 75 mg capsule,ext ended release 24 hr TAKE 1 CAPSULE BY MOUTH EVERY DAY IN MORNING active Not Available Not Available No t Available aspirin 325 mg tablet TAKE 1 TABLET BY MOUTH EVERY DAY active Not Available Not Available No t Available meloxicam 15 mg tablet TAKE 1 TABLET BY MOUTH EVERY DAY WITH FOOD 10/12 completed Not Available Not Available Not Available ondansetron HCl 4 mg tablet TAKE 1 TABLET BY MOUTH EVERY 8 HOURS FOR 7 DAYS active Not Available Not Available No t Available prednisone 20 mg tablet PLEASE SEE ATTACHED FOR DETAILED DIRECTION S 10/12 completed Not Available Not Available Not Available rizatriptan 10 mg tablet PLEASE SEE ATTACHED FOR DETAILED DIRECTION S active Not Available Not Available No t Available acetaminoph en 500 mg tablet TAKE 2 TABLETS EVERY 8 HOURS X15 DAYS NEEDED FOR FEVER active Not Available Not Available No t Available amitriptyli ne 10 mg tablet TAKE 1 TABLET BY MOUTH AT BEDTIME 10/12 completed Not Available Not Available Not Available neomycin-po lymyxin-dex ameth 3.5 mg/mL-10,00 0 unit/mL-0.1 % eye drops INSTILL 1 DROP 3 TIMES A DAY INTO RIGHT EYE FOR 5 DAYS active Not Available Not Available No t Available indomethaci n 25 mg capsule TAKE 1 CAPSULE BY MOUTH 3 TIMES A DAY WITH FOOD OR MILK active Not Available Not Available No t Available Banophen 25 mg capsule TAKE 1 CAPSULE BY MOUTH 3 TIMES A DAY NEEDED FOR MIGRAINE HEADACHE FOR 30 DAYS active Not Available Not Available No t Available oxycodone 5 mg tablet TAKE 1-2 TABLETS BY MOUTH EVERY 4-6 HOURS NEEDED FOR SEVERE PAIN active Not Available Not Available No t Available eletriptan 40 mg tablet PLEASE SEE ATTACHED FOR DETAILED DIRECTION S active Not Available Not Available No t Available zolmitripta n 5 mg nasal spray PLEASE SEE ATTACHED FOR DETAILED DIRECTION S active Not Available Not Available No t Available cholecalcif valeria (vitamin D3) 1,250 mcg (50,000 unit) capsule TAKE 1 CAPSULE BY MOUTH ONCE EVERY WEEK active Not Available Not Available No t Available lidocaine 5 % topical ointment APPLY TOPICALLY 3 TIMES A DAY NEEDED FOR PAIN 10/12 completed Not Available Not Available Not Available topiramate XR 50 mg capsule,ext ended release 24 hr TAKE 1 CAPSULE BY MOUTH AT BEDTIME FOR 30 DAYS active Not Available Not Available No t Available Emgality Pen 120 mg/mL subcutaneou s pen injector INJECT 120 MG SUBCUTANE OUSLY ONCE FOR 30 DAYS 10/12 completed Not Available Not Available Not Available Aimovig Autoinjecto r 140 mg/mL subcutaneou s auto-inject or INJECT 140 MG SUBCUTANE OUSLY ONCE FOR 28 DAYS 10/12 completed Not Available Not Available Not Available Ubrelvy 100 mg tablet PLEASE SEE ATTACHED FOR DETAILED DIRECTION S active Not Available Not Available No t Available Qulipta 60 mg tablet TAKE 1 TABLET BY MOUTH EVERY DAY active Not Available Not Available No t Available Vitals Date Recorded Body height Body mass index (BMI) Body weight Provider Name and Address Organization Details Last Updated DateTime 11/05/2024 149.86 cm 52.5 kg/m2 832459.02 g Love marroquin [place] - [place] [facility] 11/05/2024 12:57:31 Date Recorded Body height Body mass index (BMI) Body weight Provider Name and Address Organization Details Last Updated DateTime 12/28/2024 149.86 cm 52.5 kg/m2 087359.02 traci Edson Lin [facility] 12/28/2024 09:35:57 Date Recorded Body height Body mass index (BMI) Body weight Provider Name and Address Organization Details Last Updated DateTime 01/21/2025 149.86 cm 52.5 kg/m2 308804.02 traci Aleman cara [facility] 01/21/2025 09:53:18 Social History Question Answer Notes LastModified by Organizat ion Details LastModified Time Tobacco Smoking Status [facility] 10/30/2024 09:33:47 When Did You Quit Smoking? 1-5yearssince lastcigarette Information not available 10/30/2024 What Is Your Relationship Status? Domestic Partner Information not available 10/30/2024 How Many Years Have You Smoked Tobacco? 1 Information not available 10/30/2024 Sex: Unknown Functional Status Question Answer Note LastModified by Organizat ion Details LastModified Time How many times per week do you consume alcohol? Less than 1 time per week Information not available 10/30/2024 Do you use any illicit or recreational drugs? No Information not available 10/30/2024 Do you or have you ever used any other forms of tobacco or nicotine? No Information not available 10/30/2024 Do you or have you ever used e-cigarettes or vape? Never used electronic cigarettes Information not available 10/30/2024 Mental Status None recorded. Family History Nothing Reported. Medical History No medical history recorded. Gynecological HistoryNo gynecological history recorded. Obstetrics History GPAL:G 0 P 0 0 0 0 Past Encounters Encounter ID Performer Location Encounter Start Date Encounter Closed Date Diagnosis/Indication Diagnosis SNOMED-CT Code Diagnosis ICD10 Code Diagnosis Note [id number] JOSE Denis [address] [place] [address] 05/21/2024 09:32:44 06/13/2024 14:35:48 Pain of right knee joint 8602204309 64500 M25.561 Chondromal acia of right patella 9377308551 0141411 M22.41 [id number] Marina Case, PT [facility] [address] [place] [address] 05/25/2024 14:45:57 05/25/2024 15:35:10 Pain of right knee joint 6695577083 12341 M25.272 [id number] ANTHONY Herring PT [address] [place] [address] 05/29/2024 09:25:37 05/29/2024 10:15:35 Pain of right knee joint 8446468415 68774 M25.128 [id number] ANTHONY Herring PT [address] [place] [address] 05/31/2024 08:55:21 05/31/2024 09:20:12 Pain of right knee joint 3003289731 10025 M25.994 [id number] ANTHONY Herring PT [address] [place] [address] 06/14/2024 09:24:05 06/14/2024 10:22:06 Pain of right knee joint 4325154111 90965 M25.294 [id number] ANTHONY Herring PT [address] [place] [address] 07/05/2024 15:21:18 07/05/2024 16:02:12 Pain of right knee joint 2956983664 41611 M25.677 [id number] Marina Case, PT [facility] [address] [place] [address] 07/11/2024 11:20:41 07/11/2024 12:06:26 Pain of right knee joint 9256333961 73559 M25.711 [id number] MD Monica Wiggins [address] [place] [address] 10/15/2024 08:32:51 11/01/2024 11:06:46 Pain in left foot 1420270296 56088 M79.309 [id number] MD MARIA ISABEL Wiggins [facility] [address] [place] [address] 11/05/2024 12:35:58 11/20/2024 14:45:39 Pain in left foot 2649792406 42455 M79.672 Ganglion c yst of left foot 3335566252 392843 M67.472 Arthritis of left foot 2988921687 182955 M19.521 [id number] MD MARIA ISABEL Wiggins [address] [place] [address] 12/14/2024 09:18:14 12/14/2024 10:07:56 Ganglion of ankle and foot 416805283 M67.472 Osteoarthr itis of joint of left ankle and/or foot 914265906 M19.165 [id number] MD MARIA ISABEL Wiggins [place] [address] [place] [address] 12/21/2024 10:14:33 12/21/2024 13:30:02 Surgical follow-up [id number] Z09 [id number] JOSE Vasquez - [facility] [address] [place] [address] 12/28/2024 09:22:43 01/11/2025 11:12:06 Ganglion cyst of left foot 6819135378 317218 M67.509 [id number] MD MARIA ISABEL Wiggins - [facility] [address] [place] [address] 01/21/2025 09:19:59 02/05/2025 14:22:13 Ganglion cyst of left foot 1292068916 505006 M67.472 Pain in left foot 272583 6204 87102 M79.672 Health Concerns Section Related Observation LastModified by Organization Detai ls LastModified Time None Recorded Concern Status LastModified by Organization Details LastModified Time None Recorded Advance Directives Directive None Recorded Payers Encounter Date Sequence Insurance Name Policy Number Policy Bell Covered Member ID Bell Member ID Guarantor Name 11/05/2024 1 [facility] - DIRECT CONNECTORCARE TYPE I (HMO) [id number] Kayleigh Dickson [place] [id number] 01 [id number] Kayleigh Dickson [place] 12/14/2024 1 [facility] - DIRECT CONNE[employer]CARE TYPE I (HMO) [id number] Kayleigh Dickson [place] [id number] Kayleigh Martinley [place] 12/21/2024 1 [facility] - DIRECT CONNECTORCARE TYPE I (HMO) [id number] Kayleigh Dickson [place] [id number] 01 [id number] Kayleigh Yessi [place] 12/28/2024 1 [facility] - DIRECT CONNECTORCARE TYPE I (HMO) [id number] Kayleigh Martinley [place] [id number] 01 [id number] Kayleigh Yessi [place] 01/21/2025 1 [facility] - DIRECT CONNECTORCARE TYPE I (HMO) [id number] Kayleigh Dickson [place] [id number] 01 [id number] 201 Kayleigh Yessi [place] Notes Date Note Type Note Provider Name and Address Organization Details Recorded Time 11/05/2024 text/html Chief complaint: Follow-up left forefoot pain History of present illness: Patient presents today for follow-up evaluation and review of MRI findings. In brief, she is a 29-year-old female who at last visit was noted to have extreme pain at the base of the fourth and fifth metatarsals, in the region of the interval between these 2 metatarsals. She did have a palpable bump in this region and we elected to obtain an MRI to evaluate for exostosis versus ganglion cyst. Patient presents today for MRI review. I have independently reviewed the patient's MRI. MRI demonstrates what is very clearly a ganglion cyst that is emanating from the interval between the fourth and fifth metatarsal bases. There is edema involving the base of the fourth metatarsal of unclear significance. This is likely suggestive of some early arthritis. No erosive lesion is noted. On presentation today the patient continues to localize her pain over the dorsal lateral midfoot, in the region of the fourth and fifth TMT joints. She reports extreme sensitivity in this region as well, which overlies the area of her ganglion cyst. She has extreme discomfort with shoe wear as a result. She is interested in potentially moving forward with surgery for cyst removal. Patient's past medical, surgical, social history is as noted on the intake sheet. I have reviewed this sheet and discussed contents with the patient. There are no changes. Physical exam:Patient in no acute distress, alert and oriented. Mood and affect appropriateOn standing examination there is symmetric neutral alignment of the hindfoot bilaterally with neutral forefoot positionBilaterally there is full, painless passive range of motion of the ankle, subtalar, and transverse tarsal joints Focused examination left lower extremity there is mild swelling over the dorsal lateral forefoot and midfootThere is tenderness palpation at the third tarsometatarsal joint and tenderness over the base of the fourth metatarsalThere is a discrete palpable mass in the region of the fourth and fifth metatarsal bases. She is extremely tender to palpation in this region.On motor exam there is 5 out of 5 strength dorsiflexion, plantarflexion, inversion, eversionSensation is intact to light touch in all distributions throughout the foot and ankleAnkle is stable to anterior drawer and talar tilt testingToes are warm and well-perfused with palpable DP and PT pulses Imaging (previous imaging): AP, lateral, oblique weightbearing imaging of the left foot and ankle demonstrates no evidence of acute fracture or degenerative change. Tibiotalar mortise is symmetric with no talar tilt or shift. Imaging of the left foot demonstrates no evidence of acute fracture. All tarsometatarsal joints are in anatomic alignment. There is no significant degenerative change involving the tarsometatarsal joints. On lateral x-ray alignment of the forefoot, midfoot, hindfoot structures is within normal physiologic parameters Impression:? Left dorsal lateral midfoot ganglion cyst ? Early fourth tarsometatarsal joint arthritis. Plan:? I reviewed MRI findings at length with the patient in clinic today. MRI does seem to very clearly demonstrate ganglion cyst in the region of the patient's ongoing symptoms and sensitivity. Although her pain does seem somewhat out of proportion to her MRI findings, she does have a palpable mass and tenderness and it is possible that the soft tissue disruption in the region is also causing her pain. We have discussed moving forward with excision of the ganglion cyst. She understands the main risk of surgery is incomplete pain relief. Additional risk discussed include recurrence and damage to surrounding neurovascular structures. After lengthy discussion, the patient indicated she would like to proceed with surgery ? Surgical booking slip has been placed and we will contact the patient to set up surgery. Gale Wan MD [address], [place], [address], [facility] 11/11/2024 15:28:50 12/28/2024 text/html I am seeing this patient under the supervision of Dr. Frank, who was available but who did not see the patient. CHIEF COMPLAINT: Status post excision left midfoot ganglion cyst. Date of surgery 12/06/24 HPI: Patient is a 29 year old female presenting today about 3 weeks status post surgery as above. She has been doing well from surgery. She has been ambulating in a postop sandal. Does not have much pain currently. Happy with her progress thus far. Taking aspirin for DVT prophylaxis. Denies any interval trauma. Denies any fevers, chills, or paresthesias. PFMSH, Meds and ROS reviewed, updated and signed by me, and is located in the patient's chart.PHYSICAL EXAMINATION: The patient is well appearing and in no apparent distress. Alert and oriented x 3. Examination of her left foot reveals well healing surgical incision with sutures in place. Mild edema dorsal midfoot with no evidence of erythema or warmth. No evidence of skin breakdown or infectious change. Good ankle and digital range of motion without discomfort. Calf soft, nontender. Sensation intact to light touch in the left lower extremity. IMPRESSION: Status post excision left midfoot ganglion cyst. Date of surgery 12/06/24 PLAN: Discussed the findings and situation with the patient today. She seems be doing fairly well overall. Sutures were removed. She will continue with her postoperative sandal. She may transition to supportive shoe wear in 2 to 3 weeks. Follow-up in [address] Wan. Call with questions or concerns call with questions or concerns. Gina Sweeney PA-C [address], [place], [address], [facility] 12/28/2024 09:51:49 01/21/2025 text/html chief complaint: Status post left dorsal midfoot ganglion cyst excision; date of surgery 12/06/2024 History of present illness: Kayleigh presents today for follow-up evaluation. She is about 6 weeks out from surgery. She reports that the sensitive bump on the dorsal lateral midfoot has resolved. However she continues to have extreme pain radiating down the foot. She is uncertain whether or not the surgery improved this in any way. Physical exam: Patient in no acute distress, alert and oriented. Mood and affect appropriate Focused examination left lower extremity surgical incision is fully healed. There is extreme incisional sensitivity noted. There is no palpable recurrence of cyst There is no tenderness distally along the metatarsals There is mild pain with passive range of motion of the toes and passive stretch on the extensor tendons She is grossly neurovascular intact with motor and sensation intact in all distributions Toes are warm and well-perfused with palpable DP and PT pulses Imaging: No new imaging obtained in clinic today Impression: ? Status post left dorsal midfoot ganglion cyst excision; date of surgery 12/06/2024 ? 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 I reviewed today's physical examination and imaging findings with patient. I do not get explanation for her ongoing pain but I suspect she has some neurogenic pain and incisional sensitivity. We did have to separate her extensor tendons to remove the cyst and it is possible that she has developed some adhesions along the tendons. I have recommended she begin some passive range of motion exercises of the toes to stretch the tendons, and I have also recommended physical therapy for incisional desensitization ? We can trial placing a lateral heel wedge in her shoe to see if this helps offload the sensitive lateral areas along the metatarsals ? We will see her back in office in 1 month for repeat evaluation Gale Wan MD [address] [place] [address] [address], [place], [address], [facility] 01/24/2025 20:26:55 OBGyn Episode No OBEpisode recorded.
--- OUTSIDE RECORDS SUMMARY | 2025-02-26 13:45 | XMS_ITS | Encounter Summary ---
Author Organization [facility] Address [address] [place] [id number] Care Team Providers Care Sand Caster Apprentice Name Role Phone Unavailable Primary Care Provider Unavailabl e Reason for Visit * Reason Comments Medication Refill Encounter Details Date Type Department Care Team (Late st Contact Info) Description 06/06/2023 Refill [facility] [place] [address] Ronal Boland MD [address] [place] [address] Social History Tobacco Use Types Packs/Day Years [...]
--- OUTSIDE RECORDS SUMMARY | 2025-02-26 13:45 | XMS_ITS | Encounter Summary ---
Author Organization [facility] Address [address] [place] [address] Care Team Providers Care Meat Blender Name Role Phone Robyn Menendez MD Primary Care Prov ider Neda Burgess MD Primary Care Provider Unavailable Encounter Details Date Type Department Care Team Description 07/10/2014 Restorative Care Technician Report Medical Records [address] [place] [id number] Social History Tobacco Use Types Packs/Day Years [...] on filedocumented in this encounter Care Teams Meat Blender Relationship Specialty Start Date End Date Robyn Menendez MD [address] [place] [address] PCP - General Pediatrics 10/19/12 11/24/15 Neda Burgess MD [address] [place] [address] PCP - General Internal Medicine 11/25/15 documented as of this encounter
--- OUTSIDE RECORDS SUMMARY | 2025-02-26 13:45 | XMS_ITS | Encounter Summary ---
Author Organization [facility] Address [address] [place] [address] Care Team Providers Care Funeral Director Name Role Phone Neda Burgess MD Primary Care Provider Unavailable Encounter Details Date Type Department Care Team Description 05/10/2020 Refill OBGYN - [place] [address] [place] [address] Jacob Ivrin CNM [address] [place] [address] Social History Tobacco Use Types Packs/Day Years [...] EDT Pt booked for ag 07/09 in [place] with [facility] - pt asking for the [...] on filedocumented in this encounter Care Teams Funeral Director Relationship Specialty Start Date End Date Neda Burgess MD PCP - General Internal Medicine 11/25/15 documented as of this encounter
--- OUTSIDE RECORDS SUMMARY | 2025-02-26 13:45 | XMS_ITS | Encounter Summary ---
Author Organization [facility] Address [address] [place] [address] Care Team Providers Care Supervisor Hanging And Trimming Name Role Phone Neda Burgess MD Primary Care Provider Unavailable Encounter Details Date Type Department Care Team Description 08/29/2018 Glaze Carrier Report Medical Records [address] [place] [address] Miranda Bennett MD Social History Tobacco Use [...] on filedocumented in this encounter Care Teams Supervisor Hanging And Trimming Relationship Specialty Start Date End Date Neda Burgess MD PCP - General Internal Medicine 11/25/15 documented as of this encounter
--- OUTSIDE RECORDS SUMMARY | 2025-02-26 13:45 | XMS_ITS | Encounter Summary ---
Author Organization [facility] Address [address] [place] [address] Care Team Providers Care Beader Tender Name Role Phone Robyn Menendez MD Primary Care Prov ider Neda Burgess MD Primary Care Provider Unavailable Reason for Referral * Specialist (Routine) - Authorized/Booked Specialty Diagnoses / Procedures Referred By Raghav hampton Referred To Contact Dermatology Diagnoses Urticaria Procedures REFERRAL TO PEDIATRIC DERMATOLOGY Robyn Menendez MD [address] [place] [address] [place]/[place] [address] [place] [id number] Referral ID Status Reason Start Date Expiration Date V isits Requested Visits Authorized SEE REVIEW 09/04/13 Authorized/ Booked 09/03/2013 12/04/2013 1 1 Encounter Details Date Type Department Care Team Description 09/03/2013 Orders Only Pediatrics - [place] [address] [place] [address] Robyn Menendez MD [address] [place] [address] Urticaria (Primary Dx) Social History Tobacco Use Types Packs/Day Years Used Date Smoking Tobacco: Never Smokeless Tobacco: Never Alcohol Use Standard Drinks/Week Comments No 0 (1 standard drink = 0.6 oz pur e alcohol) Sex Assigned at Date Recorded Female 05/13/2021 2:37 PM E DT documented as of this encounter Plan of Treatment Not on file documented as of this encounter Visit Diagnoses Diagnosis Urticaria- Primary Urticaria, unspecified documented in this encounter Care Teams Beader Tender Relationship Specialty Start Date End Date Robyn Menendez MD [address] [place] [address] PCP - General Pediatrics 10/19/12 11/24/15 Neda Burgess MD [address] [place] [address] PCP - General Internal Medicine 11/25/15 documented as of this encounter
--- OUTSIDE RECORDS SUMMARY | 2025-02-26 13:45 | XMS_ITS | Encounter Summary ---
Author Organization [facility] Address [address] [place] [address] Care Team Providers Care Auto Body Mechanic Name Role Phone Robyn Menendez MD Primary Care Prov ider Neda Burgess MD Primary Care Provider Unavailable Encounter Details Date Type Department Care Team Description 09/20/2013 Pt. Non Urgent Medical Question [facility] [address] [place] [address] Robyn Menendez MD [address] [place] [address] Social History Tobacco Use Types Packs/Day Years Used Date Smoking Tobacco: Never Smokeless Tobacco: Never Alcohol Use Standard Drinks/Week Comments No 0 (1 standard drink = 0.6 oz pur e alcohol) Sex Assigned at Date Recorded Female 05/13/2021 2:37 PM E DT documented as of this encounter Progress Notes * Zarina Garcia L.P.N. - 09/20/2013 10:30 AM ESTFrom: KAYLEIGH CHENG To: Alis Menendez MD Sent: [facility] Sep 20, 2013 10:28 AM Subject: Kayleigh and Darci Harmony Hi, I kept both kids home today because they both seem to have the stomach flu, am keeping them both with liquids and jello and crackers until they can tolerate more, But if I could have a note for both kids to bring to school saying I called in for medical advice I would appreciate it Ibeth Cheng documented in this encounter Plan of Treatment Not on file documented as of this encounter Visit Diagnoses Not on filedocumented in this encounter Care Teams Auto Body Mechanic Relationship Specialty Start Date End Date Robyn Menendez MD [address] [place] [address] PCP - General Pediatrics 10/19/12 11/24/15 Neda Burgess MD [address] [place] [address] PCP - General Internal Medicine 11/25/15 documented as of this encounter
--- OUTSIDE RECORDS SUMMARY | 2025-02-26 13:45 | XMS_ITS | Encounter Summary ---
Author Organization [facility] Address [address] [place] [address] Care Team Providers Care Informatics Physician Name Role Phone Kaya Justice MD Primary Care Provider Unavaila ble Robyn Menendez MD Primary Care Prov ider Neda Burgess MD Primary Care Provider Unavailable Encounter Details Date Type Department Care Team Description 11/02/2010 [facility] Medical Records [address] [place] [id number] [place] [address] [facility] Social History Tobacco Use Types Packs/Day Years [...] on filedocumented in this encounter Care Teams Informatics Physician Relationship Specialty Start Date End Date Kaya Justice MD PCP - General 02/03/1998 10/18/12 Robyn Menendez MD [address] [place] [id number] PCP - General Pediatrics 10/19/12 11/24/15 Neda Burgess MD [address] [place] [address] PCP - General Internal Medicine 11/25/15 documented as of this encounter
--- OUTSIDE RECORDS SUMMARY | 2025-02-26 13:45 | XMS_ITS | Clinical Summary ---
Author Organization [facility] it Address [address] [place] [address] Care Team Providers Care Water Mangle Tender Name Role Phone Neda Burgess MD Primary [...] COVID-19 Vaccine ( season) 2024 Influenza Vaccine (Season Ended) 2025 07/05/2012, 11/19/2009, 11/14/2008, Additional history exists Hepatitis B [...] age to complete this topic Meningococcal B Vaccine Aged Out No l onger eligible based on patient's age to complete [...] RESULTING AGENCY - 02/05/2021 2:26 PM EDT [id number] THINPREP PAP, IMAGED: NEGATIVE FOR SQUAMOUS INTRAEPITHELIAL LESION AND MALIGNANCY . GARIMA FRANCIS(ASCP) (CASE ELECTRONICALLY SIGNED 02 05 2021) ADEQUACY: SATISFACTORY ENDOCERVICAL/TRANSFORMATION ZONE COMPONENT ABSENT. SOURCE: THINPREP PAP HPV IF ASCUS, CERVICAL, IMAGED CLINICAL INFORMATION: HPV IF DIAGNOSIS OF ASCUS. HORMONES, PAP HX NEG 01/31/17, LMP 01/20/21 [Z12.4, Z01.419] us Jacob Irvin CN LAB CYTOLOGY ORDERABLES Final Result HISTORICAL TESTING LAB RESULTING AGENCY from Last 3 Months or Most Recently Relevant to Health Maintenance Care Teams Water Mangle Tender Relationship Specialty Start Date End Date Neda Burgess MD PCP - General Internal Medicine 11/25/15
--- OUTSIDE RECORDS SUMMARY | 2025-02-26 13:45 | XMS_ITS | Encounter Summary ---
Author Organization [facility] Address [address] [place] [address] Care Team Providers Care Exterminator Termite Name Role Phone Robyn Menendez MD Primary Care Prov ider Neda Burgess MD Primary Care Provider Unavailable Encounter Details Date Type Department Care Team Description 02/11/2014 Pt. Non Urgent Medical Question [facility] [address] [place] [address] Robyn Menendez MD [address] [place] [address] Social History Tobacco Use Types Packs/Day Years Used Date Smoking Tobacco: Never Smokeless Tobacco: Never Alcohol Use Standard Drinks/Week Comments No 0 (1 standard drink = 0.6 oz pur e alcohol) Sex Assigned at Date Recorded Female 05/13/2021 2:37 PM E DT documented as of this encounter Progress Notes * María Washington L.P.NHannah - 02/11/2014 9:50 AM EDTFrom: LYNDSAYKAYLEIGH Dixon To: Alis Menendez MD Sent: TueFeb [...] on filedocumented in this encounter Care Teams Exterminator Termite Relationship Specialty Start Date End Date Robyn Menendez MD [address] [place] [address] PCP - General Pediatrics 10/19/12 11/24/15 Neda Burgess MD [address] [place] [address] PCP - General Internal Medicine 11/25/15 documented as of this encounter
--- OUTSIDE RECORDS SUMMARY | 2025-02-26 13:45 | XMS_ITS | Encounter Summary ---
Author Organization [facility] Address [address] [place] [address] Care Team Providers Care Mail Order Clerk Name Role Phone Robyn Menendez MD Primary Care Prov ider Neda Burgess MD Primary Care Provider Unavailable Encounter Details Date Type Department Care Team Description 12/06/2013 Release of Information Medical Records [address] [place] [address] Abstract, Provider Social History Tobacco Use Types [...] on filedocumented in this encounter Care Teams Mail Order Clerk Relationship Specialty Start Date End Date Robyn Menendez MD [address] [place] [address] PCP - General Pediatrics 10/19/12 11/24/15 Neda Burgess MD [address] [place] [address] PCP - General Internal Medicine 11/25/15 documented as of this encounter
--- OUTSIDE RECORDS SUMMARY | 2025-02-26 13:45 | XMS_ITS | Encounter Summary ---
Author Organization [facility] Address [address] [place] [address] Care Team Providers Care Protein Purification Scientist Name Role Phone Kaya Justice MD Primary Care Provider Unavaila ble Robyn Menendez MD Primary Care Prov ider Neda Burgess MD Primary Care Provider Unavailable Encounter Details Date Type Department Care Team Description 10/20/2010 Middle [employer] Resource Teacher Report Medical Records [address] [place] [id number] Marino Connelly MD Social History Tobacco Use Types Packs/Day [...] on filedocumented in this encounter Care Teams Protein Purification Scientist Relationship Specialty Start Date End Date Kaya Justice MD PCP - General 02/03/1998 10/18/12 Robyn Menendez MD [address] [place] [address] PCP - General Pediatrics 10/19/12 11/24/15 Neda Burgess MD [address] [place] [address] PCP - General Internal Medicine 11/25/15 documented as of this encounter
== END 2025-02-26 12:44 | disposition home or self-care (01) ==
LOC: HO.MRI 12:43
PROVIDERS: PCP Physician Assistant; Visit Provider Nurse Practitioner Family
DX: E23.6 Other disorders of pituitary gland (principal); G93.2 Benign intracranial hypertension
CPT/HCPCS: 70546; A9585

== ENCOUNTER 2025-03-06 08:00 | Outpatient (AMB) | payer OTHER, SELFPAY ==
--- NOTE | 2025-03-06 08:36 | A.OFFVIS_ITS ---
VS Expanded 03/06/25 08:47 Height 4 ft 11 in Weight 270 lb 4 oz BMI 54.6 Body Fat % 50.4 Body Fat Mass 136.2 Fat Free Mass 134 Visceral Fat Rating 18 Body Water % 35.6 Body Water Mass 96.4 Basal Metabolic Rate/Score 1,962 Intake Visit Reasons: [facility] Allergies acetaminophen [From Percocet] Allergy (Verified 03/06/25 08:36) Vomiting oxycodone [From Percocet] Allergy (Verified 03/06/25 08:36) Vomiting Medication List - Last Reconciled 03/06/25 by Quirino Pagan MD atogepant (Qulipta) 60 mg PO DAILY 30 days cholecalciferol (vitamin D3) 1,250 mcg PO QWEEK 12 days diphenhydramine HCl (Benadryl) 25 mg PO TID PRN 30 days eptinezumab-jjmr (Vyepti) 100 mg IV [id number] 90 days ubrogepant (Ubrelvy) 50 - 100 mg (0.5 - 1 x 100 mg) PO ONCE PRN 30 days venlafaxine ER 75 mg PO QAM 30 days venlafaxine ER 37.5 mg PO DAILY 30 days zolmitriptan 1 spray intranasal Q2H PRN 30 days HPI HPI [facility]: Details: Start time: 8.33am, End time: 9.13am ?I spent 35 minutes speaking with the patient on the phone plus an additional 5 minutes reviewing and updating records for a total of 40 minutes HPI Comments Details: Previous weight loss efforts: WW, Wakes up: 7am, Sleeps: 11pm Breakfast: skips Lunch: 11.30am (sandwich, deli meats, yogurts) Dinner: 6-7pm (chicken, pork, vegetables, potatoes) Snacks: occasionally after dinner (nuts, popcorn) Exercise: has home Elliptical and treadmill Beverages: Coffee: (occasionally), tea: (hot and iced tea with zero calories), soda: 30cal per can (2/wk), juice: apple juice 4/wk, ETOH: none PFSH Medical History (Updated 03/06/25 @ 08:41 by Quirino Pagan MD) Morbid obesity Surgical History Hx of tonsillectomy History of ear surgery Family History (Updated 02/26/25 @ 10:26 by Alyssa Shen CMA) Mother Diabetes Factor 5 Leiden mutation, heterozygous Father No problems noted. 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 Current occupational exposures/hazards: No Cognitive needs: No Hearing needs: No Vision needs: No Telehealth Telehealth Telehealth Platform: Telephone Location of provider rendering services: practice address Location of patient: address on file Patient Identification confirmed using: Name, : Yes Telehealth method: voice only Patient verbally consented to treatment: Yes Patient verbally consented to billing insurance company: Yes Patient informed of any privacy concerns related to visit: Yes Minutes spent on Phone/Video with Pt.: 40 Assessment & Plan Assessment & Plan (1) Morbid obesity: Code(s): E66.01 - Morbid (severe) obesity due to excess calories Category: Medical Plan: 1. We discussed in detail the available therapeutic options: 1) our lifestyle intervention program that has an average weight loss of 10% in 3 months.? 2) Weight loss medications. We also discussed that you can self pay for the first 3 months and the cost is $399 for the first month and $499 for any other month thereafter. 3) We also discussed about the lap sleeve gastrectomy. I emphasized the importance of close follow-up, adherence to instructions and good communication. The surgery does not replace the need to change your lifestlyle which is the cause of the obesity problem. The surgery provides the motivation to try again to change your lifestyle, it reduces the appetite and make the transition to a better lifestyle easier and doubles the amount of weight you would lose compared to doing the lifestyle change without the surgery. You will need to be on a liquid diet with protein shakes for 2 weeks before surgery to maximize weight loss and boost your nutritional status to recover better from surgery and also for the first two weeks after surgery to let the stomach heal before we introduce other foods. After the first 2 weeks we will introduce protein bars and soft foods like scrambled eggs, cottage cheese and yogurt and after the 6th week will introduce meat, fish and cooked vegetables in small amounts. Over time you should be able to eat everything in small amounts. Side effects like nausea, vomiting, heartburn or abdominal pain are not common in the practice unless you are not following in the practice. This operation requires lifetime commitment to following in our practice and communication with me. You will much less weight and experience side effects if you don?t communicate or not following in the practice. Complications are rare and in our practice is about 1/10 of the national average. The patient prefers to try the anti-obesity medications. 2. You will receive a link of our software ana to generate an individualized nutritional and exercise plan specific for you. Please send me a screenshot of the plans you will generate Meal to include lean meat (beef, fish, pork, turkey, chicken), or luxembourgish yogurt, or egg whites, or beans with a salad with olive oil and fruits (berries, pears, apples, kiwi). Avoid salt, breads, potatoes, rice, pasta, desserts. ?3. If you choose shakes, each shake would be drunk slowly, like coffee in a period of 2 hours. ?4. If you choose bars, cut each bar in 4 pieces and eat each piece in 30min ?to make each bar last 2 hours. ?5. I emphasized the importance of measuring accurately the food portion and measure it when serving the food in plate ?6. The meal portions include a specific number of forks of meat and salad. You always eat the meat portion but you can replace up to half of salad/vegetables portion with rice, potatoes or pasta, or a fruit ?if you like. The less you do it the better weight loss will be. ?7. One full-size fork is what it can be scooped on the fork without falling aside and not what can be bit with the fork. Use regular forks like those you find in a typical restaurant. ?8.? Please buy the body composition scale we discussed and send me weight measurements as soon as possible and then once a week. Always include your diet and exercise plan. 9. The best exercise choice would be to use your treadmill at home that can track calories. You can create and exercise plan with the Right[employer] ana. ?10.?It is important of avoiding and for at least 18 months postoperatively and has been discussed at the infosession. ?11. Goal is to lose at least 1.5-2lbs per week ?12. Goal to lose 10% of your weight before surgery, which is about 30lbs. Ultimate weight goal: 240lbs before surgery 13. Please follow the diet plan exactly without any change. If you don't like something about the plan or you feel hungry you need to communicate with me so I can help you revise the plan. You should not change the plan yourself. 14. Start the Zepbound when you get your body composition scale once a week. Use a calorie-counting ana to track your daily calories to create a calorie deficit with a target of consuming 6910-7471 calories per day. We discussed the potential side effects of Zepbound such as nausea, vomiting, abdominal pain, diarrhea and constipation and you will need to contact me if any of these symptoms occur or for any other new symptom you may experience
[2025-03-06 08:47] VITALS: BMI 54.6
--- OUTSIDE RECORDS SUMMARY | 2025-03-06 09:07 | XMS_ITS | Clinical Summary ---
Author Organization [facility] Address [address] [place] [address] Care Team Providers Care Street Light Repairer Name Role Phone Unavailable Primary Care Provider [...]
== END 2025-03-06 09:14 | disposition home or self-care (01) ==
LOC: HO.HBS 08:00
PROVIDERS: PCP Physician Assistant; Visit Provider Surgery
DX: E66.01 Morbid (severe) obesity due to excess calories (principal)
CPT/HCPCS: 98009

== ENCOUNTER 2025-03-27 09:16 | Outpatient (AMB) | payer OTHER, SELFPAY ==
[2025-03-27 09:24] VITALS: BP 120/84; PULSE 91; O2SAT 97; BMI 53.3
--- NOTE | 2025-03-27 09:24 | A.OFFVIS_ITS ---
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 Required: No Accompanied by: Self / Same As Patient Allergies acetaminophen [From Percocet] Allergy (Verified 03/27/25 09:36) Vomiting oxycodone [From Percocet] Allergy (Verified 03/27/25 09:36) Vomiting Medication List - Last Reconciled 03/27/25 by PEGGY Fernandez atogepant (Qulipta) 60 mg PO DAILY 30 days cholecalciferol (vitamin D3) 1,250 mcg PO QWEEK 12 days diphenhydramine HCl (Benadryl) 25 mg PO TID PRN 30 days eptinezumab-jjmr (Vyepti) 100 mg IV [id number] 90 days tirzepatide (weight loss) (Zepbound) 2.5 mg (0.5 mL) subcut QWEEK ubrogepant (Ubrelvy) 50 - 100 mg (0.5 - 1 x 100 mg) PO ONCE PRN 30 days venlafaxine ER 75 mg PO QAM 30 days venlafaxine ER 37.5 mg PO DAILY 30 days zolmitriptan 1 spray intranasal Q2H PRN 30 days HPI Comments Details: 29-yr-old female presents for f/u of migraine. Since the last visit: Pt underwent left foot ganglion cyst excision at [facility]. She has started working w/ [facility] [place]. Since the last visit, pt underwent: * 10/23/2024, Brain MRI w/wo impression: - No acute brain abnormality. - No abnormal enhancement. - Consider diaphragmatic sella insufficiency * 01/25/2025, Lumbar puncture in left lateral decubitus position: - The opening CSF pressure measures 26 cm of water. * 01/25/2025, CSF studies 01/25/2025, 11:38 CSF Tube Number 4 CSF Volume 4.0 CSF Appearance CLEAR CSF Color COLORLESS CSF WBC 1 CSF RBC 0 CSF Lymphocytes 100 CSF Appearance (b) Clear, Colorless CSF Glucose 62 CSF Total Protein 16.7 * 02/26/2025, MR venography head wo/w con impression: - Normal MRV brain. * Eye exam- per pt- no indications of pappilledema. She continues to have 3 migraine attacks per week, which are disabling when they occur, causing her to be unable to work or do most of her usual day to day activities. Migraines continued to be triggered by cognitive taxing effort, looking at computer or phone screens for too long- so tries to avoid using screens for too long. Reviewed pt's academic history- pt reports she struggled in school, had an IEP [id number] grade and with that support she did well, however she tested out of needing an IEP therafter and had only a 504 plan- at which point she began struggling more. She states she barely graduated from high school. After high school, she tried college, but struggled with the work. 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 She is currently on long-term disability from her previous work. Baseline migraine headache characteristics: Aura- right eye- vision becomes grainy and blurry. Stabbing pain, starts right frontal then becomes holocranial a/w photophobia, phonophobia, dizziness, at times nausea. She is compliant w/ Venlafaxine, but asks if it possible to combine the dose, as she currently has to pay for 2 co-pays. She has episodes of spinning dizziness when she is laying bed flat and exacerbated by rolling over. Occasionally has a brief 1-2 min of ear ringing. Denies preceding ear infections, ear pain. [facility] Medical History (Updated 03/29/25 @ 22:39 by PEGGY Fernandez) Learning difficulty Morbid obesity Surgical History (Updated 03/27/25 @ 09:37 by Macarena Mccallum CMA) History of foot surgery Hx of tonsillectomy History of ear surgery Family History Mother Diabetes Factor 5 Leiden mutation, heterozygous Father No problems noted. 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 General: patient oriented x3 and moves all extremities Cognition (Neuro): normal cognition Psych Appearance: grossly normal Mental Status: mental status grossly normal Speech and movement: Normal speech and movement present Affect: normal affect Attitude: cooperative Assessment & Plan Assessment & Plan (1) Chronic migraine without aura: Code(s): G43.709 - Chronic migraine without aura, not intractable, without status migrainosus Category: Medical Qualifiers: Status migrainosus presence: with status migrainosus (2) Migraine with aura, not intractable, without status migrainosus: Code(s): G43.109 - Migraine with aura, not intractable, without status migrainosus Category: Medical (3) Generalized anxiety disorder: Code(s): F41.1 - Generalized anxiety disorder Category: Medical (4) Depression: Code(s): F32.A - Depression, unspecified Category: Medical Qualifiers: Depression Type: major depressive disorder Major depression recurrence: recurrent Active/Remission status: currently active Major depression episode severity: mild Qualified Code(s): F33.0 - Major depressive disorder, recurrent, mild (5) Dizziness: Code(s): R42 - Dizziness and giddiness Category: Medical Plan Reviewed interval Brain MRI w/wo, Brain MRV w/wo, LP, and CSF results- indications of empty sella w/ normal basic CSF studies and mild elevated of LP opening pressure at 26 cmH2O. Interval eye exam was reassuirng w/o indications of papilledema. There are no clear indications of IIH. However, pt is encouraged to continue to work w/ weight management to reduce risk for exacerbating risk factors for IIH. For migraine prevention: Monitor and track migraine. Will take the liberty of requesting psychiatric evaluation for pt's cognitive difficulties- ? undx'd ADHD/ADD, depression, anxiety, possible learning d/o- as appropriately treating pt's cognitive/mood s/s may reduce her cognitive burden, cognophobia, and thus can help to reduce overall migraine burden. Discontinue venlafaxine ER 112.5 mg (75+37.5mg caps) daily order- to consolidate seperate orders into 1 daily capsule. Pt agrees to try a slightly higher dose of Venlafaxine, as this may help migraine and mood as well. Start Velafaxine ER 150mg qam. Continue Qulipta (atogepant) 60mg daily at bedtime. Discontinue Vyepti 100 mg IV infusion Q 90 days- order as pt's insurance denied request. Previous med tx's: Amitriptyline- ineffective at low doses, hand paresthesias at higher doses. Ajovy - effective no longer covered. Topiramate IR/ER- not tolerated. Botox- ineffective. Nortriptyline- ineffective. Propranolol- ineffective. Trokendi- caused paresthesias. Aimovig- lost effectiveness. Future considerations- revisiting Vyepti, trying a neuro-stimulant, referral for neuro-reprocessing therapy for chronic pain/migraine. ? For acute migraine tx: Continue Trial Ubrogepant (Ubrelvy) 100mg tab, 1/2 - 1 tab (50-100mg) at onset of headache, may repeat in 2 hours. Max of 2 tabs (200mg) per 24 hours. May adjunct with OTC Tylenol 650mg q 4 hours, Ibuprofen 600mg q 6 hours, or Naproxen 440mg q 12 hrs prn. Continue Zomig 5mg nasal spray as needed Continue Benadryl 25-50 mg for rescue. Hold Eletriptan 40mg as needed order- pt not taking. Hold Indomethacin 25mg 3 x's per day as needed for stabbing headache pain. Take w/ food. May take w/ a triptan. Previous acute migraine treatment trials: Ubrelvy helpful for typical migraine, stopped only d/t not covered by insurance as pt was on Aimovig. Sumatriptan, Zolmitriptan, Naratriptan, Fioricet ineffective. Rizatriptan prn- no longer as effective. Indometha ? Monitor dizziness- if worsens, will refer for Vestibular therapy Orders: Referrals Psychiatry Outpatient Consultation Service F41.1 - Generalized anxiety disorder, F81.9 - Developmental disorder of scholastic skills, unspecified Medications: New venlafaxine ER 150 mg PO QAM 30 days 30 caps 3RF Refilled ubrogepant (Ubrelvy) take at onset of migraine, may repeat in 2hrs (may take w/ Ibuprofen) 50 - 100 mg (0.5 - 1 x 100 mg) PO ONCE 30 days PRN 16 tabs 6RF migraine headache Discontinued venlafaxine ER Discontinued Reason: Doctor's Order 75 mg PO QAM 30 days 30 caps 6RF venlafaxine ER Take with 75 mg cap to total 112.5 mg daily Discontinued Reason: Doctor's Order 37.5 mg PO DAILY 30 days 30 caps 6RF Coding Level of Care Code Est Pt Level 4 (68341) Complex EM visit Add On G2211 Diagnoses Chronic migraine without aura G43.709 Status migrainosus presence: with status migrainosus Migraine with aura, not intractable, without status migrainosus G43.109 Generalized anxiety disorder F41.1 Mild episode of recurrent major depressive disorder F33.0 Depression Type: major depressive disorder Major depression recurrence: recurrent Active/Remission status: currently active Major depression episode severity: mild Dizziness R42
== END 2025-03-27 10:43 | disposition home or self-care (01) ==
LOC: HO.HSMS 09:16
PROVIDERS: PCP Physician Assistant; Visit Provider Nurse Practitioner Family
DX: G43.709 Chronic migraine without aura, not intractable, without status migrainosus (principal); G43.109 Migraine with aura, not intractable, without status migrainosus; F41.1 Generalized anxiety disorder; F33.0 Major depressive disorder, recurrent, mild; R42 Dizziness and giddiness
CPT/HCPCS: 99214; G2211

== ENCOUNTER → 2025-03-27 09:16 | Outpatient (BNVA) | payer OTHER, SELFPAY | PROVIDERS: PCP Physician Assistant; Visit Provider Nurse Practitioner Family ==

== ENCOUNTER 2025-05-08 09:46 | Outpatient (REF) | payer OTHER, SELFPAY ==
[2025-05-08 20:16] LABS: Bacterial Vaginosis PCR POSITIVE (Negative); Candida Group PCR NOT DETECTED (Not Detect); Candida glab krusei PCR NOT DETECTED (Not Detect); Trichomonas vaginalis PCR NOT DETECTED (Not Detect)
[2025-05-08 21:06] LABS: CT PCR NOT DETECTED (Not Detect.); NG PCR NOT DETECTED (Not Detect.)
== END 2025-05-08 09:47 | disposition home or self-care (01) ==
LOC: HO.LAB 09:46
PROVIDERS: PCP Physician Assistant; Visit Provider Advanced Practice Midwife
DX: Z00.00 Encounter for general adult medical examination without abnormal findings (principal); R87.610 Atypical squamous cells of undetermined significance on cytologic smear of cervix (ASC-US); N92.6 Irregular menstruation, unspecified; N94.10 Unspecified dyspareunia; Z11.3 Encounter for screening for infections with a predominantly sexual mode of transmission; Z15.1 Genetic susceptibility to epilepsy and neurodevelopmental disorders
CPT/HCPCS: 36415; 81515; 83498; 87491; 87591; 87626; 88175

== ENCOUNTER 2025-05-08 09:46 | Outpatient (AMB) | payer OTHER, SELFPAY ==
--- NOTE | 2025-05-08 10:18 | MHC.OFFVIS ---
Vital Signs 05/08/25 10:27 Height 4 ft 11 in Weight 257 lb BMI 51.9 BP 118/72 Blood Pressure Location Lt brachial Position Sitting Intake Visit Reasons: [employer]PER[employer]OR [employer] annual exam/DONOTRS Intake Note: here for annual does have pain with intercouse for at least years. Painful having bowel movements Information Interpreted: non-clinical & clinical Accompanied by: Self / Same As Patient Allergies acetaminophen (From Percocet) Allergy (Verified 05/08/25 10:22) Vomiting oxycodone (From Percocet) Allergy (Verified 05/08/25 10:22) Vomiting Medication List - Last Reconciled 05/08/25 by Marina Enrique LPN atogepant (Qulipta) 60 mg PO DAILY 30 days cholecalciferol (vitamin D3) 1,250 mcg PO QWEEK 12 days diphenhydramine HCl (Benadryl) 25 mg PO TID PRN 30 days ubrogepant (Ubrelvy) 50 - 100 mg (0.5 - 1 x 100 mg) PO ONCE PRN 30 days venlafaxine ER 150 mg PO QAM 30 days zolmitriptan 1 spray intranasal Q2H PRN 30 days Is last menstrual period known: Yes Last menstrual period: 05/02/25 (Period in february lasted about 2 weeks and does have irregular periods) Post menopausal: No Patient : No Do you need a note to return to daycare/school/sports/work: No HPI Comments Details: Patient is a premenopausal woman presenting for new patient annual examination. 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 Currently is sexually active. Open to future . She denies vaginal itching or irritation. STI screening offered; she accepts, declines bled work. She tries to eat healthy and stays active with exercise. FH multiple cancers. Last pap smear > 6 years ago, negative. [facility] Medical History Family history of cancer Abnormal uterine bleeding (AUB) Learning difficulty Morbid obesity Surgical History History of foot surgery Hx of tonsillectomy History of ear surgery Family History Mother Diabetes Factor 5 Leiden mutation, heterozygous Father No problems noted. 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 Current occupational exposures/hazards: No Cognitive needs: No Hearing needs: No Vision needs: No Female Reproductive History Menstrual Age of Menarche: 11 Duration of menses: 3-5 days Date of last menstrual period: 05/02/25 (Period in february lasted about 2 weeks and does have irregular periods) control method: none Total pregnancies: 0 Number of Living Children: 0 Date of last pap smear: 05/08/20 History of abnormal pap smear: No History of STI: No Other: Family history Per Patient : Maternal grandmother is adopted, Paternal Cousin + genetic testing, Paternal Great Aunt Breast Cancer, Review of Systems Const All systems reviewed & are unremarkable except as noted in HPI and below Reports as per HPI Eyes Reports no additional complaints ENT Reports no additional complaints Card Reports no additional complaints Resp Reports no additional complaints GI Reports as per HPI and Reports no additional complaints Reports as per HPI Musc Reports no additional complaints Skin/Breast Reports as per HPI Neuro Reports no additional complaints Psych Reports no additional complaints Endo Reports no additional complaints Alex/Lymph Reports no additional complaints Aller/Immun Reports no additional complaints Physical Exam Vital Signs: Last Vital Signs BP 118/72 05/08/25 10:27 BMI result Body Mass Index 51.9 Const General: cooperative, healthy appearing, no acute distress, well developed and alert Orientation/consciousness: patient oriented x3 HEENT Head: Yes normal to inspection Eyes General: appearance normal, both eyes and all related structures Neck Neck: Yes normal visual inspection Thyroid: Thyroid normal Chest Chest palpation & inspection: normal inspection of the chest and other (no puckering, dimpling, peau de orange, retraction, discharge, masses) Breast/axilla inspection: normal inspection of the breasts Breast/axilla palpation: normal palpation of the breasts Resp Effort & Inspection: normal respiratory effort GI Inspection: Yes normal to inspection Palpation (GI): Soft to palpation Rectal Exam - Female: deferred General: Yes bladder normal to palpation External Female Exam: normal external appearance and normal appearance of the urethra Speculum Exam - Vagina: normal appearance of the vagina, normal palpation and normal vaginal discharge Speculum Exam - Cervix: normal appearance of the cervix and normal palpation Bimanual exam- vagina & uterus: normal bimanual exam, normal palpation, uterine size normal, bladder normal to palpation, normal palpation and non-tender Bimanual Exam- Adnexa, other: no masses Skin General skin exam: no rashes or lesions noted Rashes: no rashes Neuro General: patient oriented x3 Cognition (Neuro): normal cognition Extrem General: Yes normal to inspection Psych Attitude: cooperative Thought process: Normal thought process present Assessment & Plan Assessment & Plan (1) Abnormal uterine bleeding (AUB): Code(s): N93.9 - Abnormal uterine and vaginal bleeding, unspecified Category: Medical Plan: Discussed workup to include pelvic ultrasound. Reviewed previous labs, additional 17 hydroxy progesterone added for lab. Reviewed causes of irregular menses to include hormonal imbalances, maybe contributed by weight. Patient to continue with weight management plan. The patient expressed understanding and agreement with the plan of care. All of her questions and concerns were addressed to the best of my ability. This note is constructed using voice recognition software. While every effort has been made to ensure accuracy, steamer operator errors may have been included. (2) Encounter for well woman exam with routine gynecological exam: Code(s): Z01.419 - Encounter for gynecological examination (general) (routine) without abnormal findings Category: Medical Plan: Discussed: Current recommendations for pap smears per ASCCP guidelines. Pap obtained. Breast awareness and periodic breast exams. Maintain a healthy lifestyle including a well balanced diet and routine exercise. Referral placed for genetic testing. Initiate vitamins for the benefit of folic acid and prevention of neural tube defects. Monitor menses if late do a home test, if positive report to the office for OB care. Patient verbalizes understanding and agrees to the plan of care. She was given opportunity to ask questions and all questions were answered to the best of my ability. RTO in one year for annual foundation relations director examination. This note is constructed using voice recognition software. While every effort has been made to ensure accuracy, steamer operator errors may have been included. (3) Dyspareunia in female: Code(s): N94.10 - Unspecified dyspareunia Plan Plan workup and follow up in office. The patient expressed understanding and agreement with the plan of care. All of her questions and concerns were addressed to the best of my ability. Orders: Orders Pap Smear Today Z00.00 - Encounter for general adult medical examination without abnormal findings 17 Hydroxyprogesterone Today N92.6 - Irregular menstruation, unspecified US pelvic and transvaginal Today N93.9 - Abnormal uterine and vaginal bleeding, unspecified Bacterial Vaginosis Panel Today N94.10 - Unspecified dyspareunia CT NG by PCR Vag/Cerv Today N94.10 - Unspecified dyspareunia Referrals Breast Surgery Referral Z80.9 - Family history of malignant neoplasm, unspecified Medications: New PNV,calcium 59-lauk-fgojv acid 27 mg iron- 1 mg ( Vitamins Plus Low Iron) 1 tab PO DAILY 90 tabs 4RF Coding Level of Care Code New Pt Prev Care 18-39yr(15200 Diagnoses Abnormal uterine bleeding (AUB) N93.9 Encounter for well woman exam with routine gynecological exam Z01.419 Dyspareunia in female N94.10
--- OUTSIDE RECORDS SUMMARY | 2025-05-08 10:23 | XMS_ITS | Clinical Summary ---
Author Organization [facility] it Address [address] [place] [address] Care Team Providers Care Loading Unit Tool Setter Name Role Phone Neda Burgess MD Primary [...] history exists Cholesterol Screening (Lipid Panel) 09/25/2022 HIV Screening 09/25/2022 Hepatitis C Screening 09/25/2022 Social Influencers of Health Screening 09/25/2022 Cervical Cancer Screening: Pap Smear 02/04/2024 02/03/2021 COVID-19 Vaccine ( season) 2024 Depression Screening 10/17/2024 Influenza Vaccine (#1) 2025 2, 11/19/2009, 11/14/2008, Additional history exists Hepatitis [...] 5 Years) and At-Risk Patients (6 to 49 Years) Aged Out No longer eligible based [...] RESULTING AGENCY - 02/05/2021 2:26 PM EDT [id number] THINPREP PAP, IMAGED: NEGATIVE FOR SQUAMOUS INTRAEPITHELIAL LESION AND MALIGNANCY . GARIMA FRANCIS(ASCP) (CASE ELECTRONICALLY SIGNED 02 05 2021) ADEQUACY: SATISFACTORY ENDOCERVICAL/TRANSFORMATION ZONE COMPONENT ABSENT. SOURCE: THINPREP PAP HPV IF ASCUS, CERVICAL, IMAGED CLINICAL INFORMATION: HPV IF DIAGNOSIS OF ASCUS. HORMONES, PAP HX NEG 01/31/17, LMP 01/20/21 [Z12.4, Z01.419] us Jacob Irvin [facility] LAB CYTOLOGY ORDERABLES Final Result HISTORICAL TESTING LAB RESULTING AGENCY from Last 3 Months or Most Recently Relevant to Health Maintenance Care Teams Loading Unit Tool Setter Relationship Specialty Start Date End Date Neda Burgess MD PCP - General Internal Medicine 11/25/15
--- OUTSIDE RECORDS SUMMARY | 2025-05-08 10:23 | XMS_ITS | Data Portability ---
Author Organization KATELYN - Kevon Vanessa Vamemo formerly [facility], [facility] Address [address] [place] [address] Care Team Providers Care Assembler Corncob Pipes Name Role Phone DAI GALEANA Primary Care Provider Assessment No assessment recorded. Plan of Treatment Reminders Order Date Submit Date Provider Last Modified By Organization Details Last Modified Time Details Appointments None recorded. Lab None recorded. Referral physical therapist referral - Status post excision left midfoot ganglion cyst. Date of surgery 12/06/242024 025 [email or web address] Not available 12:16:38 Procedures None recorded. Surgeries excision, ganglion cyst, foot (SURG) 2024 025 [email or web address] [facility], [facility] [place], [address], 14:25:43 Imaging None recorded. Medication Orders None [...] Abnormal Flag Note LastModifiedBy Organization Detail LastModifiedTime 10/15/20 24 10/15/2024 XR, foot, 3 or more view [email or web address] ?Encry pted=s hAaTro YD8dLq bEUv6g %2BXZw aYqtaq 0bqfl% 2Fg9IQ a4ajBk vP9nXo QUaueC m3YtLR FvZlgJ JJ8mAn HZtai3 9b8488 AC0Kqb nqEVKC iKiQtr MwF INTERFACE [facility] [address] [facility] [address], [place], [address], 10/15/2024 08:46:52 10/15/20 24 10/15/2024 XR, foot, 3 or more view [email or web address] ?Encry pted=s hAaTro YD8dLq bEUv6g %2BXZw aYqtaq 0bqfl% 2Fg9IQ a4ajBk vP9nXo QUaueC m3YtLR FvZlgJ JJ8mAn HZtai3 6c8278 AC0Kqb nqEVKC iKiQtr MwF INTERFACE [facility] [address] [address], [place], [address], 10/15/2024 08:46:54 10/15/20 24 10/15/2024 XR, ankle , 2 view [email or web address] ?Encry pted=s hAaTro YD8dLq bEUv6g %2BXZw aYqtaq 0bqfl% 2Fg9IQ a4ajBk vP9nXo QUaueC m3YtLR FvZlgJ JJ8mAn HZtai3 0u0766 AC0Kqb nqEVKC jKiQtr MwF INTERFACE [facility] [address] [address], [place], [address], 10/15/2024 08:47:49 10/15/20 24 10/15/2024 XR, ankle , 2 view [email or web address] ?Encry pted=s hAaTro YD8dLq bEUv6g %2BXZw aYqtaq 0bqfl% 2Fg9IQ a4ajBk vP9nXo QUaueC m3YtLR FvZlgJ JJ8mAn HZtai3 0s1817 AC0Kqb nqEVKC jKiQtr MwF INTERFACE [facility] [address], [place], [address], 10/15/2024 08:47:51 10/18/1910/18/2024 MRI, foot, w/o contr ast No observ ation record ed. [email or web address] [facility] [address], [place], [address], 10/25/2024 20:15:44 Result Notes None recorded. Problems Name Problem SNOMED Code Status Onset Date Resolution Date Notes Provider Name and Address Organization Details Recorded Time No complaints 569838911 Active Status : 'A'; Not Available [facility] 4 09:20:08 Pain of right knee joint 1086144423468 00 Active 2023 Marina Case, PT [address], [place], [address] , [facility] 4 22:31:28 Problem Notes None recorded. Procedures Surgical History Date Name Laterality Status Provider Name and Address Organization Details Recorded Time 5 Ankle/Foot Surgery completed Edson Lin [facility] 12/28/2024 09:35:49 5 EXCISION, GANGLION CYST, FOOT (SURG) completed Love marroquin [facility] 12/21/2024 07:44:36 4 05353 Therapeutic Exercise (1:1) cancelled Marina Case PT [address], [place], [address], [facility] 07/12/2024 17:14:10 4 85365: Manual therapy cancelled Marina Case PT [address], [place], [address], [facility] 07/12/2024 17:14:10 4 93192 Therapeutic Exercise (1:1) completed Marina Case PT [address], [place], [address], [facility] 07/10/2024 13:55:47 4 27378: Manual therapy completed Marina Case, PT [address], [place], [address], [facility] 07/10/2024 13:55:47 4 60151 Therapeutic Exercise (1:1) completed Ivis Lara, DESULFURIZER MACHINE [address], [place], [address], [facility] 07/06/2024 16:45:15 4 69195: Manual therapy completed Ivis Lara, DESULFURIZER MACHINE [address], [place], [address], [facility] 07/06/2024 16:41:39 4 04074 Therapeutic Exercise (1:1) completed Ivis Lara, DESULFURIZER MACHINE [address], [place], [address], [facility] 06/14/2024 14:08:10 4 33135: Manual therapy completed Ivis Lara, DESULFURIZER MACHINE [address], [place], [address], [facility] 06/14/2024 09:49:09 4 45022 Therapeutic Exercise (1:1) cancelled Marina Case, PT [address], [place], [address], [facility] 06/05/2024 08:46:00 4 27899: Manual therapy cancelled Marina Case, PT [address], [place], [address], [facility] 06/05/2024 08:46:01 4 14513 Therapeutic Exercise (1:1) completed Ivis Lara, DESULFURIZER MACHINE [address], [place], [address], [facility] 05/31/2024 09:39:00 4 65520: Manual therapy completed Ivis Satyak, DESULFURIZER MACHINE [address], [place], [address], [facility] 05/31/2024 09:39:00 4 76784 Therapeutic Exercise (1:1) completed Ivis Satyasak, DESULFURIZER MACHINE [address], [place], [address], [facility] 05/29/2024 09:41:36 4 97767: Manual therapy completed Ivis Jasak, DESULFURIZER MACHINE [address], [place], [address], [facility] 05/29/2024 10:00:22 4 79586 Therapeutic Exercise (1:1) completed Marina , PT [address], [place], [address], [facility] 05/23/2024 22:29:11 4 49931: Low complexity PT Eval completed Marina Wing, PT [address], [place], [address], [facility] 05/23/2024 22:29:27 Imaging Results None recorded. Procedure Notes None recorded. Medical Equipment None Reported. Allergies Allergen ID Allergen Name Allergen Category Reaction Reaction Severity Criticality Documentation Date Start Date Code Code System Note Provider Name and Address Organization Details Recorded Time 014992 acetamino phen / oxycodone medicatio n Not available Not available Not available 12/19/20232015 08295 3 RxNorm Not Available [facility] 15:49:56 Medications Name Sig Start Date [...] Updated DateTime 11/05/2024 149.86 cm 52.5 kg/m2 036377.02 g Love marroquin [facility] 11/05/2024 12:57:31 Date Recorded Body height Body mass index (BMI) Body weight Provider Name and Address Organization Details Last Updated DateTime 12/28/2024 149.86 cm 52.5 kg/m2 711165.02 g Edson Lin [facility] 12/28/2024 09:35:57 Date Recorded Body height Body mass index (BMI) Body weight Provider Name and Address Organization Details Last Updated DateTime 01/21/2025 149.86 cm 52.5 kg/m2 456121.02 traci Love marroquin [facility] 01/21/2025 09:53:18 Social History Question Answer Notes LastModified by Shared Performance Details LastModified Time Tobacco Smoking Status [facility] 10/30/2024 09:33:47 When Did You Quit Smoking? 1-5yearssince lastcigarette Information not available 10/30/2024 What Is Your Relationship Status? Domestic Partner Information not available 10/30/2024 How Many Years Have You Smoked Tobacco? 1 Information not available 10/30/2024 Sex: Unknown Functional Status Question Answer Note LastModified by Shared Performance Details LastModified Time How many times per [...] SNOMED-CT Code Diagnosis ICD10 Code Diagnosis Note [id number] JOSE Denis [address] [place] [address] 05/21/2024 09:32:44 06/13/2024 14:35:48 Pain of right knee joint 9339821719 85161 M25.561 Chondromal acia of right patella 5045507592 5806256 M22.41 [id number] Marina Case, PT [facility] [address] [place] [address] 05/25/2024 14:45:57 05/25/2024 15:35:10 Pain of right knee joint 4902298729 07724 M25.264 [id number] Ivis Jak, DESULFURIZER MACHINE [facility] [address] [place] [address] 05/29/2024 09:25:37 05/29/2024 10:15:35 Pain of right knee joint 9779920831 55875 M25.330 [id number] Ivis Satyasak, DESULFURIZER MACHINE [facility] [address] [place] [address] 05/31/2024 08:55:21 05/31/2024 09:20:12 Pain of right knee joint 2833282194 29103 M25.462 [id number] Ivis Satyasak, DESULFURIZER MACHINE [facility] [address] [place] [address] 06/14/2024 09:24:05 06/14/2024 10:22:06 Pain of right knee joint 6560351473 31288 M25.807 [id number] Ivis Lara, DESULFURIZER MACHINE [facility] [address] [facility] [place] [address] 07/05/2024 15:21:18 07/05/2024 16:02:12 Pain of right knee joint 2923924649 21511 M25.091 [id number] [facility] [address] [facility] [place] [address] 07/11/2024 11:20:41 07/11/2024 12:06:26 Pain of right knee joint 3451262892 44683 M25.874 [id number] MD Seble Wiggins [address] [place] [address] 10/15/2024 08:32:51 11/01/2024 11:06:46 Pain in left foot 2739320971 16807 M79.831 [id number] MD MARIA ISABEL Wiggins [facility] [address] [place] [address] 11/05/2024 12:35:58 11/20/2024 14:45:39 Pain in left foot 2080839811 90538 M79.672 Ganglion c yst of left foot 0909405509 074598 M67.472 Arthritis of left foot 4980980067 635385 M19.316 [id number] MD MARIA ISABEL Wiggins [facility] [address] [place] [address] 12/14/2024 09:18:14 12/14/2024 10:07:56 Ganglion of ankle and foot 656726645 M67.472 Osteoarthr itis of joint of left ankle and/or foot 308314720 M19.511 [id number] MD MARIA ISABEL Wiggins [facility] [address] [place] [address] 12/21/2024 10:14:33 12/21/2024 13:30:02 Surgical follow-up 523066314 Z09 [id number] JOSE Vasquez [facility] [address] [place] [place] [address] 12/28/2024 09:22:43 01/11/2025 11:12:06 Ganglion cyst of left foot 6355139265 468377 M67.617 [id number] MD MARIA ISABEL Wiggins Shannon Ortega [address] [place] [address] 01/21/2025 09:19:59 02/05/2025 14:22:13 Ganglion cyst of left foot 4398454484 359682 M67.472 Pain in left foot 441910 8219 83125 M79.672 Health Concerns Section Related Observation LastModified by Organization Detai ls LastModified Time None Recorded Concern Status LastModified by Organization Details LastModified Time None Recorded Advance Directives Directive None Recorded Payers Insurance Date Sequence Insurance Name Policy Number Policy Bell Covered Member ID Bell Member ID Guarantor Name 02/18/2025 1 [facility] [employer] [facility] [employer] [facility] TYPE I (HMO) [id number] Kayleigh Yessi Antunez [id number] Kayleigh Yessi Antunez Notes Date Note Type Note Provider Name [...] hindfoot structures is within normal physiologic parameters Impression: Left dorsal lateral midfoot ganglion cyst Early fourth tarsometatarsal joint arthritis. Plan: I reviewed MRI findings at length with [...] she would like to proceed with surgery Surgical booking slip has been placed and we will contact the patient to set up surgery. Gale Wan MD [address], [place], [address], [facility] 11/11/2024 15:28:50 12/28/2024 text/html [...] trauma. Denies any fevers, chills, or paresthesias. PFMS, Meds and ROS reviewed, updated and signed [...] questions or concerns. 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
--- OUTSIDE RECORDS SUMMARY | 2025-05-08 10:23 | XMS_ITS | Encounter Summary ---
Author Organization Formerly [facility] Address [address] [place] [address] Care Team Providers Care Composite Assembler Name Role Phone Unavailable Primary Care Provider Unavailabl e Reason for Visit * Reason Comments Medication Refill Encounter Details Date Type Department Care Team (Late st Contact Info) Description 06/06/2023 Refill [facility] [place] [address] Ronal Boland MD [address] [place] [address] Social History Tobacco Use Types Packs/Day Years [...]
[2025-05-08 10:27] VITALS: BP 118/72; BMI 51.9
== END 2025-05-08 11:37 | disposition home or self-care (01) ==
LOC: HO.HWS 09:47
PROVIDERS: PCP Physician Assistant; Visit Provider Advanced Practice Midwife
DX: Z01.419 Encounter for gynecological examination (general) (routine) without abnormal findings (principal); N93.9 Abnormal uterine and vaginal bleeding, unspecified; N94.10 Unspecified dyspareunia
CPT/HCPCS: 99385; 99459

== ENCOUNTER 2025-06-26 11:30 | Outpatient (REF) | payer OTHER, SELFPAY ==
--- NOTE | ~2025-06-26 | US_ITS ---
EXAMINATION: US PELVIS CLINICAL INFORMATION: Abnormal uterine and vaginal bleeding. COMPARISON: None available. TECHNIQUE: Ultrasound of the pelvis is performed using both transabdominal and transvaginal transducers along with Doppler. Transvaginal imaging is performed due to inadequate visualization transabdominally. FINDINGS: Uterus: The uterus is in anteversion flexion and measures 8 x 3 x 4 cm. Volume: 59 cc. The endocervical canal is closed. Cervix demonstrates no gross abnormality. The double wall endometrial thickness is 5 mm. The uterus is smooth in contour and has normal myometrial echogenicity. No visible fibroid. Adnexa: The ovaries are identified with flow on color Doppler interrogation.. No free fluid in the cul-de-sac. Right ovary measures 3 x 2 x 2 cm. Volume: 5 cc. No solid or cystic lesion. Left ovary measures 3 x 2 x 2 cm. Volume: 5 cc. No solid or cystic lesion. US/US pelvic and transvaginal IMPRESSION: Normal pelvic ultrasound. Electronically signed by: Beau Jones MD 06/26/2025 12:24 PM EDT
--- OUTSIDE RECORDS SUMMARY | 2025-06-26 14:39 | XMS_ITS | Clinical Summary ---
Author Organization Formerly [facility] Address [address] [place] [address] Care Team Providers Care Silver Service Waiter Name Role Phone Unavailable Primary Care Provider [...] of 3 - 19+ 3-dose series) 2014 HPV Vaccines (1 - 3-dose SCD M series) 2022 COVID-19 Vaccine ( - 2023-2 5 season) 2024 Pneumococcal Vaccine: Pediat amadeo (0-5 Years) and At-Risk Patients (6 to 49 Years) Aged Out No longer eligible b ased on patient's age to complete this topic
--- OUTSIDE RECORDS SUMMARY | 2025-06-26 14:39 | XMS_ITS | Encounter Summary ---
Author Organization [facility] Address [address] [place] [address] Care Team Providers Care Other Sports Official Name Role Phone Unavailable Primary Care Provider Unavailabl e Reason for Visit * Reason Comments Medication Refill Encounter Details Date Type Department Care Team (Late st Contact Info) Description 06/06/2023 Refill [facility] [place] [address] Ronal Boland MD [address] [place] [address] Social History Tobacco Use Types Packs/Day Years [...]
--- OUTSIDE RECORDS SUMMARY | 2025-06-26 14:40 | XMS_ITS | Patient Health Record ---
Author Organization [facility] Address [address] [facility] [address] [place] [address] Care Team Providers Care Purchasing Analyst Name Role Phone MathewHeather gillette Primary Care Provider KIRIT Fragoso Unavailable [phone] Allergies No Known Allergies Reason For Referral No Information Medications Medication SIG (Take, Route, Frequency, Duration) Notes Start Date End Date Status Meloxicam 15 MG 1 tablet Orally Once a day Not-Taking Cholecalciferol 1250mcg PO Qweek Active Atogepant 60 MG 1 tablet Orally Once a day Active Aspirin 81 MG 1 tablet Orally Once a day Active Methocarbamol 750 MG 1 tablet Orally every 4 hrs Not-Taking ZOLMitriptan 1 spray intranasal Q2H PRN Active Venlafaxine HCl ER 75 MG 1 capsule with food Orally Once a day Active Ubrogepant 50 MG 1 tablet as needed, may take second dose at least 2 hours after first dose up to 4 tablets per day as needed Orally Once a day Active diphenhydrAMINE HCl 25 MG 1 capsule at bedtime as needed Orally Once a day Active Eptinezumab-jjmr 100 MG/ML as directed Intravenous Not-Taking Social History Sex Assigned At : Social History Observation Description Sex Assigned At Female Section Notes: Tobacco: current user 2 cigarettes per day Marijuana : current user Alcohol: rarely Tobacco: current user 2 cigarettes per day Marijuana : current user Alcohol: rarely Problems Problem Type SNOMED Code ICD Code Onset Dates Problem Status W/U Status Risk Notes Problem Chronic pain (42969364) Other chronic pain (G89.29) Active confirmed Vital Signs Height 4ft 11in in 05/15/2025 Weight 261.3 lbs 05/15/2025 BMI 52.77 kg/m2 05/15/2025 Procedures Procedure Date Ordered Date Performed Result Body Sit e DRAIN/INJECT, SMALL JOINT/BURSA 05/15/2025 N/A Encounters Encounter Location Date Provider Diagnosis [facility] [address] 05/13/2025 KIRIT LINNETTE Pain in left foot M79.672 ; Other chronic pain G89.29 and Ganglion cyst of left foot M67.472 [facility] [address] 05/15/2025 KIRIT LINNETTE Bursitis of left foot M77.52 [facility] [address], [place] 05/14/2025 KIRIT LINNETTE [facility] [address], [place] 05/15/2025 KIRIT LINNETTE [facility] [address] 05/30/2025 KIRIT LINNETTE [facility] [address], [place] 05/30/2025 KIRIT LINNETTE [facility] [address] 06/11/2025 KIRIT LINNETTE Assessments Encounter Date Diagnosis (ICD Code) Assessment Notes Treatment Notes Treatment Clinical Notes Section Notes 05/13/2025 Other chronic pain (ICD-10 - G89.29) 05/13/2025 Pain in left foot (ICD-10 - M79.672) Patient examined and evaluated. Past medical history reviewed. Three weightbearing radiographs of the left foot were taken in the office today and reviewed with the patient. She has a 1.5 year history of left 5th MTPJ burning pain. She has had extensive work up and treatment with ortho. She is about 5 mo s/p excision of what sounds to be multiple ganglion cysts to the dorsal lateral left midfoot. Despite the conservative and surgical treatment she has had, she continues with the same level of pain. She is concerned that she has recurrence or still has a cystic mass. She has had an MRI in the past at [facility]. Her xrays show nothing of concern. It is hard to know the etiology of her pain as this could of been from the cysts causing compression to the nerves vs there could be another pathology all together. We discussed how nerves can take awhile to normalize. There is chance of recurrence of the cyst as this is common with ganglia. We discussed doing a repeat MRI to see if there has been recurrence. I will also review her previous MRI that was done before surgery. She was agreeable with this plan. She will follow back once her imaging has been done. 05/15/2025 Bursitis of left foot (ICD-10 - M77.52) Patient examined and evaluated. I reviewed her past MRI of the left foot that was done at [facility] without contrast. She has a large adventitious bursa around the left 5th metatarsal that could be the culprit of her pain. This was not addressed in the past, just the cystic changes. I discussed with her that it is worth trying treatment for the bursa before repeating an MRI to assess for more cystic changes. She was agreeable. She was given a steroid injection into the left 5th metatarsal bursa today under aseptic technique. She tolerated this well. I advised that she may want to ice this area over the next few days. It can take up to a week for the steroids to kick in. I gave her written education about steroid injections today. I will check in with her in 2 weeks to see if she has noticed any change in her pain. If she has not, we will then proceed with a repeat MRI. She was agreeable with this plan . I encouraged her to call if she has any additional questions or concerns. 05/13/2025 Ganglion cyst of left foot (ICD-10 - M67.472) Plan Of Treatment Pending Test Test Name Order Date DRAIN/INJECT, SMALL JOINT/BURSA 05/15/20 25 Insurance Providers Payer Name Payer Address Payer Phone Subscriber Number Group Number Insured Name Patient Relationship to Insured Coverage Start Date Coverage End Date [facility] (NO REFERRAL ) [address] [place] [address] [phone] [id number] Kayleigh Antunez Self - patient is the insured Medications Administered Medication Instructions Date of Administration Dosage Notes dexAMETHasone Sod Phosphate PF 05/15/2025 2 mg Kenalog 05/15/2025 5 mg Medical (General) History Medical History History ICD Code Depression Generalized anxiety disorder Chronic migraine without aura Surgical History Surgery Date(Month/Year) tonsillectomy ear surgery left foot Ganglion cyst removed [facility] 2024
--- OUTSIDE RECORDS SUMMARY | 2025-06-26 14:40 | XMS_ITS | Clinical Summary ---
Author Organization [facility] Address [address] [place] [address] Care Team Providers Care Facility Maintenance Helper Name Role Phone Neda Burgess MD Primary [...] Cervical Cancer Screening: Pap Smear 02/04/2024 02/03/2021 Depression Screening 10/17/2024 COVID-19 Vaccine ( season) 2025 Influenza Vaccine (#1) 2025 2, 11/19/2009, 11/14/2008, [...] RESULTING AGENCY - 02/05/2021 2:26 PM EDT [id number] THINPREP PAP, IMAGED: NEGATIVE FOR SQUAMOUS INTRAEPITHELIAL LESION AND MALIGNANCY . GARIMA FRANCIS(ASCP) (CASE ELECTRONICALLY SIGNED 02 05 2021) ADEQUACY: SATISFACTORY ENDOCERVICAL/TRANSFORMATION ZONE COMPONENT ABSENT. SOURCE: THINPREP PAP HPV IF ASCUS, CERVICAL, IMAGED CLINICAL INFORMATION: HPV IF DIAGNOSIS OF ASCUS. HORMONES, PAP HX NEG 01/31/17, LMP 01/20/21 [Z12.4, Z01.419] us Jacob Irvin [facility] CYTOLOGY ORDERABLES Final Result HISTORICAL TESTING LAB RESULTING AGENCY from Last 3 Months or Most Recently Relevant to Health Maintenance Care Teams Facility Maintenance Helper Relationship Specialty Start Date End Date Neda Burgess MD PCP - General Internal Medicine 11/25/15
== END 2025-06-26 11:31 | disposition home or self-care (01) ==
LOC: HO.US 11:30
PROVIDERS: PCP Physician Assistant; Visit Provider Advanced Practice Midwife
DX: N93.9 Abnormal uterine and vaginal bleeding, unspecified (principal)
CPT/HCPCS: 76830; 76856

== ENCOUNTER → 2025-06-26 11:31 | Outpatient (BNV) | payer OTHER, SELFPAY | PROVIDERS: PCP Physician Assistant; Visit Provider Radiology Diagnostic Radiology | DX: N93.9 Abnormal uterine and vaginal bleeding, unspecified (principal) | CPT/HCPCS: 76830; 76856 ==

== ENCOUNTER 2025-06-27 07:32 | Outpatient (AMB) | payer OTHER, SELFPAY ==
--- NOTE | 2025-06-27 07:28 | A.OFFVIS_ITS ---
Intake Visit Reasons: 3m follow up Intake Note: Follow up care Boom Supervisor Required: No Accompanied by: Self / Same As Patient Allergies acetaminophen (From Percocet) Allergy (Verified 06/27/25 07:30) Vomiting oxycodone (From Percocet) Allergy (Verified 06/27/25 07:30) Vomiting HPI Comments Details: 29-year-old female presents for follow-up of migraine. Patient reports she tried to switch the venlafaxine to a single dose; however, she felt terrible, so she switched back to the previous dose of 75mg and 37.5mg and does not want to change this at this time. She notes that she was also tried on Zepbound. She is experiencing increased left ear pulsatile buzzing, accompanied by more difficulty hearing, which comes and goes whenever she tries to improve her physical activity. This is not a/w her typical migraine attack, SOB, chest pain, palpitations. She has not seen ENT. She states she is having 4-5 migraine days per week, which are more often than not severe and disabling. Patient reports she continues to have migraine triggered by cognitive taxing effort, looking at a computer or phone too long. She is not receiving the Ubrelvy. * Baseline migraine headache characteristics: Aura- right eye- vision becomes grainy and blurry. Stabbing pain, starts right frontal then becomes holocranial a/w photophobia, phonophobia, dizziness, at times nausea. She has not heard from the psychiatrist's office regarding the previously requested psychiatric consult. Summary of patient's academic history- pt reports she struggled in school, had an IEP [id number] grade and with that support she did well, however she tested out of needing an IEP therafter and had only a 504 plan- at which point she began struggling more. She states she barely graduated from high school. After high school, she tried college, but struggled with the work. 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 She is currently on long-term disability from her previous work. [facility] Medical History Family history of cancer Abnormal uterine bleeding (AUB) Learning difficulty Morbid obesity Surgical History History of foot surgery Hx of tonsillectomy History of ear surgery Family History Mother Diabetes Factor 5 Leiden mutation, heterozygous Father No problems noted. 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 General: patient oriented x3 and moves all extremities Cognition (Neuro): normal cognition Psych Appearance: grossly normal Mental Status: mental status grossly normal Speech and movement: Normal speech and movement present Affect: normal affect Attitude: cooperative Telehealth Telehealth Telehealth Platform: [facility] Location of provider rendering services: practice address Location of patient: address on file Patient Identification confirmed using: Name, : Yes Telehealth method: video Patient verbally consented to treatment: Yes Patient verbally consented to billing insurance company: Yes Patient informed of any privacy concerns related to visit: Yes Minutes spent on Phone/Video with Pt.: 25 Results Reviewed Results Reviewed: Previous workup: * 10/23/2024, Brain MRI w/wo impression: - No acute brain abnormality. - No abnormal enhancement. - Consider diaphragmatic sella insufficiency * 01/25/2025, Lumbar puncture in left lateral decubitus position: - The opening CSF pressure measures 26 cm of water. * 01/25/2025, CSF studies 01/25/2025, 11:38 CSF Tube Number 4 CSF Volume 4.0 CSF Appearance CLEAR CSF Color COLORLESS CSF WBC 1 CSF RBC 0 CSF Lymphocytes 100 CSF Appearance (b) Clear, Colorless CSF Glucose 62 CSF Total Protein 16.7 * 02/26/2025, MR venography head wo/w con impression: - Normal MRV brain. * Eye exam- per pt- no indications of pappilledema. Assessment & Plan Assessment & Plan (1) Chronic migraine without aura: Code(s): G43.709 - Chronic migraine without aura, not intractable, without status migrainosus Category: Medical Qualifiers: Status migrainosus presence: without status migrainosus Intractability: not intractable Qualified Code(s): G43.709 - Chronic migraine without aura, not intractable, without status migrainosus (2) Migraine with aura, not intractable, without status migrainosus: Code(s): G43.109 - Migraine with aura, not intractable, without status migrainosus Category: Medical (3) Generalized anxiety disorder: Code(s): F41.1 - Generalized anxiety disorder Category: Medical (4) Depression: Code(s): F32.A - Depression, unspecified Category: Medical Qualifiers: Active/Remission status: currently active Depression Type: major depressive disorder Major depression episode severity: mild Major depression recurrence: recurrent Qualified Code(s): F33.0 - Major depressive disorder, recurrent, mild (5) Pulsatile tinnitus, left ear: Code(s): H93.A2 - Pulsatile tinnitus, left ear Category: Medical Plan Reviewed previous Brain MRI w/wo, Brain MRV w/wo, LP, and CSF results- indications of empty sella w/ normal basic CSF studies and mild elevated of LP opening pressure at 26 cmH2O. Interval eye exam was reassuirng w/o indications of papilledema. There are no clear indications of IIH. Patient is encouraged to continue to work w/ weight management to reduce risk for exacerbating risk factors for IIH. For left ear pulsatile tinnitus: * Check a left carotid ultrasound * We will request ENT consult For migraine prevention: Monitor and track migraine. * Will follow-up on request for psychiatric evaluation for pt's cognitive difficulties- ? Diagnosed ADHD/ADD, depression, anxiety, possible learning d /o- as appropriately treating pt's cognitive/mood s/s may reduce her cognitive burden, cognophobia, and thus can help to reduce overall migraine burden. * Continue Qulipta (atogepant) 60mg daily at bedtime. * Continue venlafaxine ER 112.5 mg (75+37.5mg caps) daily order- to consolidate seperate orders into 1 daily capsule. Pt agrees to try a slightly higher dose of Venlafaxine, as this may help migraine and mood as well. * Discontinue Velafaxine ER 150mg qam- not tolerated, however intolerance may have been from the concomitant Zepbound tx. Previous med tx's: Amitriptyline- ineffective at low doses, hand paresthesias at higher doses. Ajovy - effective no longer covered. Topiramate IR/ER- not tolerated. Botox- ineffective. Nortriptyline- ineffective. Propranolol- ineffective. Trokendi- caused paresthesias. Aimovig- lost effectiveness. Future considerations- revisiting Vyepti-previously denied by patient's insurance, trying a neuro-stimulant, referral for neuro-reprocessing therapy for chronic pain/migraine. For acute migraine tx: * Resume Ubrogepant (Ubrelvy) 100mg tab, 1/2 - 1 tab (50-100mg) at onset of headache, may repeat in 2 hours. Max of 2 tabs (200mg) per 24 hours. We will check status of order. * May adjunct with OTC Tylenol 650mg q 4 hours, Ibuprofen 600mg q 6 hours, or Naproxen 440mg q 12 hrs prn. * Continue Zomig 5mg nasal spray as needed * Continue Benadryl 25-50 mg for rescue. Previous acute migraine treatment trials: Ubrelvy helpful for typical migraine, stopped only d/t not covered by insurance as pt was on Aimovig. Sumatriptan, Zolmitriptan, Naratriptan, Fioricet ineffective. Rizatriptan prn- no longer as effective. Indomethacin- ? Effect ? Monitor dizziness- if worsens, will refer for Vestibular therapy As the patient is again having 3-5 severe migraine days per week, the patient is to abstain from work through follow-up here in approximately 3-6 months. We will continue to assess her ability to return to meaningful work at each of her follow-up appointments. Will follow-up upon review of above and patient to follow-up in clinic in 3-6 months or sooner prn. Orders: Orders US carotid duplex BI Today E23.6 - Other disorders of pituitary gland, G93.2 - Benign intracranial hypertension, H93.A2 - Pulsatile tinnitus, left ear, Z68.43 - Body mass index [BMI] 50.0-59.9, adult Referrals Ear/Nose/Throat Referral G93.2 - Benign intracranial hypertension, H93.A2 - Pulsatile tinnitus, left ear Medications: New ubrogepant (Ubrelvy) take at onset of migraine, may repeat in 2hrs (may take w/ Ibuprofen) 50 - 100 mg (0.5 - 1 x 100 mg) PO ONCE PRN 16 tabs 3RF migraine headache 30 days Discontinued ubrogepant (Ubrelvy) take at onset of migraine, may repeat in 2hrs (may take w/ Ibuprofen). [place] APPROVED 03/05/25-10/01/25 Discontinued Reason: Doctor's Order 50 - 100 mg (0.5 - 1 x 100 mg) PO ONCE 30 days PRN 16 tabs 6RF migraine headache Coding Level of Care Code Tele Est Pt Level 4 (77607) Diagnoses Chronic migraine without aura without status migrainosus, not intractable G43.709 Status migrainosus presence: without status migrainosus Intractability: not intractable Migraine with aura, not intractable, without status migrainosus G43.109 Generalized anxiety disorder F41.1 Mild episode of recurrent major depressive disorder F33.0 Active/Remission status: currently active Depression Type: major depressive disorder Major depression episode severity: mild Major depression recurrence: recurrent Pulsatile tinnitus, left ear H93.A2
--- OUTSIDE RECORDS SUMMARY | 2025-06-27 07:35 | XMS_ITS | Encounter Summary ---
Author Organization [facility] Address [address] [place] [address] Care Team Providers Care Filler Shredding Machine Loader Name Role Phone Unavailable Primary Care Provider Unavailabl e Reason for Visit * Reason Comments Medication Refill Encounter Details Date Type Department Care Team (Late st Contact Info) Description 06/06/2023 Refill [facility] [place] [address] Ronal Boland MD [address] [place] [address] Social History Tobacco Use Types Packs/Day Years [...]
--- OUTSIDE RECORDS SUMMARY | 2025-06-27 07:35 | XMS_ITS | Clinical Summary ---
Author Organization [facility] Address [address] [place] [address] Care Team Providers Care Banquet Steward Name Role Phone Unavailable Primary Care Provider [...]
--- OUTSIDE RECORDS SUMMARY | 2025-06-27 07:36 | XMS_ITS | Clinical Summary ---
Author Organization [facility] it Address [address] [place] [address] Care Team Providers Care Eastern Philosophy Professor Name Role Phone Neda Burgess MD Primary [...] RESULTING AGENCY - 02/05/2021 2:26 PM EDT [id number] THINPREP PAP, IMAGED: NEGATIVE FOR SQUAMOUS INTRAEPITHELIAL LESION AND MALIGNANCY . GARIMA FRANCIS(ASCP) (CASE ELECTRONICALLY SIGNED 02 05 2021) ADEQUACY: SATISFACTORY ENDOCERVICAL/TRANSFORMATION ZONE COMPONENT ABSENT. SOURCE: THINPREP PAP HPV IF ASCUS, CERVICAL, IMAGED CLINICAL INFORMATION: HPV IF DIAGNOSIS OF ASCUS. HORMONES, PAP HX NEG 01/31/17, LMP 01/20/21 [Z12.4, Z01.419] us Jacob Irvin [facility] LAB CYTOLOGY ORDERABLES Final Result HISTORICAL TESTING LAB RESULTING AGENCY from Last 3 Months or Most Recently Relevant to Health Maintenance Care Teams Eastern Philosophy Professor Relationship Specialty Start Date End Date Neda Burgess MD PCP - General Internal Medicine 11/25/15
--- OUTSIDE RECORDS SUMMARY | 2025-06-27 07:36 | XMS_ITS | Patient Health Record ---
Author Organization [facility] Address [address] [place] [address] Care Team Providers Care Solar Manufacturer'S Representative Name Role Phone MathewHeather gillette Primary Care Provider KIRIT Fragoso Unavailable [phone] Allergies No Known Allergies Reason For Referral [...] W/U Status Risk Notes Problem Chronic pain (84572518) Other chronic pain (G89.29) Active confirmed Vital Signs Height 4ft 11in in 05/15/2025 Weight 261.3 lbs 05/15/2025 BMI 52.77 kg/m2 05/15/2025 Procedures Procedure Date Ordered Date Performed Result Body Sit e DRAIN/INJECT, SMALL JOINT/BURSA 05/15/2025 N/A Encounters Encounter Location Date Provider Diagnosis [facility] [address] 05/13/2025 KIRIT LINNETTE Pain in left foot M79.672 ; Other chronic pain G89.29 and Ganglion cyst of left foot M67.472 [facility] [address] 05/15/2025 KIRIT LINNETTE Bursitis of left foot M77.52 [facility] [address], [place] 05/14/2025 KIRIT LINNETTE [facility] [address], [place] 05/15/2025 KIRIT LINNETTE [facility] [address], [place] 05/30/2025 KIRIT LINNETTE [facility] [address], [place] 05/30/2025 KIRIT LINNETTE [facility] [address] 06/11/2025 KIRIT LINNETTE Assessments Encounter Date [...] had an MRI in the past at [facility]. Her xrays show nothing of concern. It [...] the left foot that was done at [facility] without contrast. She has a large adventitious [...] Insured Coverage Start Date Coverage End Date [facility] (NO REFERRAL ) [address] [place] [address] [id number] Kayleigh Antunez Self - patient is the [...]
== END 2025-06-27 08:20 | disposition home or self-care (01) ==
LOC: HO.HSMS 07:32
PROVIDERS: PCP Physician Assistant; Visit Provider Nurse Practitioner Family
DX: G43.709 Chronic migraine without aura, not intractable, without status migrainosus (principal); G43.109 Migraine with aura, not intractable, without status migrainosus; F41.1 Generalized anxiety disorder; F33.0 Major depressive disorder, recurrent, mild; H93.A2 Pulsatile tinnitus, left ear
CPT/HCPCS: 98006

== ENCOUNTER 2025-07-10 08:32 | Outpatient (AMB) | payer OTHER, SELFPAY ==
[2025-07-10 08:36] VITALS: BP 106/62
--- NOTE | 2025-07-10 08:36 | MHC.OFFVIS ---
Vital Signs 07/10/25 08:36 Height 4 ft 11 in BP 106/62 Blood Pressure Location Rt brachial Position Sitting Intake Visit Reasons: US follow up Ornamental Metal Erector Apprentice Required: No Information Interpreted: non-clinical & clinical Pig Machine Supervisor: Pig Machine Supervisor Present Allergies acetaminophen (From Percocet) Allergy (Verified 07/10/25 08:40) Vomiting oxycodone (From Percocet) Allergy (Verified 07/10/25 08:40) Vomiting Medication List - Last Reconciled 07/10/25 by Gloria Sy LPN atogepant (Qulipta) 60 mg PO DAILY 30 days cholecalciferol (vitamin D3) 1,250 mcg PO QWEEK 12 days diphenhydramine HCl (Benadryl) 25 mg PO TID PRN 30 days PNV,calcium 08-ywdn-ohffk acid 27 mg iron- 1 mg ( Vitamins Plus Low Iron) 1 tab PO DAILY ubrogepant (Ubrelvy) 50 - 100 mg (0.5 - 1 x 100 mg) PO ONCE PRN 30 days venlafaxine ER 150 mg PO QAM 30 days zolmitriptan 1 spray intranasal Q2H PRN 30 days Is last menstrual period known: Yes Last menstrual period: 07/07/25 Post menopausal: No Patient : No Do you need a note to return to daycare/school/sports/work: No HPI Comments Details: Patient is here today for a follow up pelvic ultrasound, history of irregular menses skipping for many months at a time, current cycles have been regular. She has opted not have any cycle control, plans future , not intentionally trying at this time. Not using condoms. Taking her vitamins daily. Admits to cycles lasting 2-7 days painful for entirety, with heavy menstrual bleeding, has tried various piev-otw-exnyuto products without success. Labs: 01/25/2025- Hgb-14, TSH 10/25/24--1.15. [facility] Medical History Family history of cancer Abnormal uterine bleeding (AUB) Learning difficulty Morbid obesity Surgical History History of foot surgery Hx of tonsillectomy History of ear surgery Family History Mother Diabetes Factor 5 Leiden mutation, heterozygous Father No problems noted. 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 Current occupational exposures/hazards: No Cognitive needs: No Hearing needs: No Vision needs: No Female Reproductive History Menstrual Age of Menarche: 11 Date of last menstrual period: 07/07/25 control method: none Total pregnancies: 0 Review of Systems Const All systems reviewed & are unremarkable except as noted in HPI and below Endo Reports no additional complaints Physical Exam Vital Signs: Last Vital Signs BP 106/62 07/10/25 08:36 Const General: cooperative, healthy appearing and no acute distress Psych Appearance: well kempt Attitude: cooperative Thought process: Normal thought process present Results Reviewed Results Reviewed: [address] [address] Ultrasound Report Signed Patient: Kayleigh Antunez MR#: [id number] : 1995 Acct:[id number] Age/Sex: 29 / F ADM Date: 06/26/25 Loc: HO.US Attending Dr: Marie Carlson CNM Ordering Physician: Marie Carlson CNM Date of Service: 06/26/25 Procedure(s): US pelvic and transvaginal Accession Number(s): [id number] cc: Heather Mathew; Marie Carlson CNM~ Reason for Exam: N93.9 - Abnormal uterine and vaginal bleeding, unspecified EXAMINATION: US PELVIS CLINICAL INFORMATION: Abnormal uterine and vaginal bleeding. COMPARISON: None available. TECHNIQUE: Ultrasound of the pelvis is performed using both transabdominal and transvaginal transducers along with Doppler. Transvaginal imaging is performed due to inadequate visualization transabdominally. FINDINGS: Uterus: The uterus is in anteversion flexion and measures 8 x 3 x 4 cm. Volume: 59 cc. The endocervical canal is closed. Cervix demonstrates no gross abnormality. The double wall endometrial thickness is 5 mm. The uterus is smooth in contour and has normal myometrial echogenicity. No visible fibroid. Adnexa: The ovaries are identified with flow on color Doppler interrogation.. No free fluid in the cul-de-sac. Right ovary measures 3 x 2 x 2 cm. Volume: 5 cc. No solid or cystic lesion. Left ovary measures 3 x 2 x 2 cm. Volume: 5 cc. No solid or cystic lesion. US/US pelvic and transvaginal IMPRESSION: Normal pelvic ultrasound. Electronically signed by: Beau Jones MD 06/26/2025 12:24 PM EDT RP Dictated By: Beau Perez MD Signed By: <Electronically signed by Beau Villagran MD in OV> 06/26/25 1224 DD/ 1145 TD/TT: 06/26/25 1215 Purchasing Associate: Assessment & Plan Assessment & Plan (1) Abnormal uterine bleeding (AUB): Code(s): N93.9 - Abnormal uterine and vaginal bleeding, unspecified Category: Medical Plan: Discussed ultrasound findings-unremarkable (2) Dysmenorrhea: Code(s): N94.6 - Dysmenorrhea, unspecified Plan Reviewed options for dysmenorrhea including OCPs, and OTC products, advised to try ibuprofen 600 mg every 6 hours with cycle onset and continue until pain-free. Use of a heating pad. Advised to take with food and fluids. Declines the need for prescription-has meds on hand. Continue with vitamins, menstrual tracking, obtain home test if late for menses, discuss current meds with provider for prepregnancy planning. Follow up med check 4 months. The patient expressed understanding and agreement with the plan of care. Advised to call sooner if there is any concerns. All of her questions and concerns were addressed to the best of my ability. This note is constructed using voice recognition software. While every effort has been made to ensure accuracy, special investigation unit investigator errors may have been included. Coding Level of Care Code Est Pt Level 3 (85007) Diagnoses Abnormal uterine bleeding (AUB) N93.9 Dysmenorrhea N94.6
--- OUTSIDE RECORDS SUMMARY | 2025-07-10 09:32 | XMS_ITS | Encounter Summary ---
Author Organization [facility] Address [address] [place] [address] Care Team Providers Care Balloon Dipper Name Role Phone Unavailable Primary Care Provider Unavailabl e Reason for Visit * Reason Comments Medication Refill Encounter Details Date Type Department Care Team (Late st Contact Info) Description 06/06/2023 Refill [facility] [place] [address] Ronal Boland MD [address] [place] [address] Social History Tobacco Use Types Packs/Day Years [...]
--- OUTSIDE RECORDS SUMMARY | 2025-07-10 09:32 | XMS_ITS | Clinical Summary ---
Author Organization [facility] Address [address] [place] [address] Care Team Providers Care Rail Project Engineer Name Role Phone Unavailable Primary Care Provider [...] 3-dose SCD M series) 2022 COVID-19 Vaccine (1 - 2023-2 5 season) 2025 Pneumococcal Vaccine: Pediat amadeo (0-5 Years) and At-Risk Patients (6 to 49 Years) Aged Out No longer eligible b ased on patient's age to complete this topic
--- OUTSIDE RECORDS SUMMARY | 2025-07-10 09:33 | XMS_ITS | Patient Health Record ---
Author Organization [facility] Address [address] [facility] [address] [place] [address] Care Team Providers Care Casino Floor Walker Name Role Phone MathewHeather gillette Primary Care Provider KIRIT Fragoso Unavailable [phone] Allergies No Known Allergies Reason For Referral [...] W/U Status Risk Notes Problem Chronic pain (10365863) Other chronic pain (G89.29) Active confirmed Vital Signs Height 4ft 11in in 05/15/2025 Weight 261.3 lbs 05/15/2025 BMI 52.77 kg/m2 05/15/2025 Procedures Procedure Date Ordered Date Performed Result Body Sit e DRAIN/INJECT, SMALL JOINT/BURSA 05/15/2025 N/A Encounters Encounter Location Date Provider Diagnosis [facility] [address] 05/13/2025 KIRIT LINNETTE Pain in left foot M79.672 ; Other chronic pain G89.29 and Ganglion cyst of left foot M67.472 [facility] [address] 05/15/2025 KIRIT LINNETTE Bursitis of left foot M77.52 [facility] [address], [place] 05/14/2025 KIRIT LINNETTE [facility] [address], [place] 05/15/2025 KIRIT LINNETTE [facility] [address] 05/30/2025 KIRIT LINNETTE [facility] [address] 05/30/2025 KIRIT LINNETTE [facility] [address] 06/11/2025 KIRIT LINNETTE Assessments Encounter Date [...] had an MRI in the past at [facility]. Her xrays show nothing of concern. It [...] the left foot that was done at [facility] without contrast. She has a large adventitious [...] Insured Coverage Start Date Coverage End Date [facility] (NO REFERRAL ) [address] [place] [address] [phone] [id number] Kayleigh Antunez Self - patient is the [...]
--- OUTSIDE RECORDS SUMMARY | 2025-07-10 09:33 | XMS_ITS | Clinical Summary ---
Author Organization [facility] it Address [address] [place] [address] Care Team Providers Care Lagging Machine Operator Name Role Phone Neda Burgess MD Primary [...] RESULTING AGENCY - 02/05/2021 2:26 PM EDT [id number] THINPREP PAP, IMAGED: NEGATIVE FOR SQUAMOUS INTRAEPITHELIAL LESION AND MALIGNANCY . GARIMA FRANCIS(ASCP) (CASE ELECTRONICALLY SIGNED 02 05 2021) ADEQUACY: SATISFACTORY ENDOCERVICAL/TRANSFORMATION ZONE COMPONENT ABSENT. SOURCE: THINPREP PAP HPV IF ASCUS, CERVICAL, IMAGED CLINICAL INFORMATION: HPV IF DIAGNOSIS OF ASCUS. HORMONES, PAP HX NEG 01/31/17, LMP 01/20/21 [Z12.4, Z01.419] us Jacob Irvin [facility] LAB CYTOLOGY ORDERABLES Final Result HISTORICAL TESTING LAB RESULTING AGENCY from Last 3 Months or Most Recently Relevant to Health Maintenance Care Teams Lagging Machine Operator Relationship Specialty Start Date End Date Neda Burgess MD PCP - General Internal Medicine 11/25/15
== END 2025-07-10 11:15 | disposition home or self-care (01) ==
LOC: HO.HWS 08:32
PROVIDERS: PCP Physician Assistant; Visit Provider Advanced Practice Midwife
DX: N93.9 Abnormal uterine and vaginal bleeding, unspecified (principal); N94.6 Dysmenorrhea, unspecified
CPT/HCPCS: 99213

== ENCOUNTER → 2025-07-10 08:32 | Outpatient (BNVA) | payer OTHER, SELFPAY | PROVIDERS: PCP Physician Assistant; Visit Provider Advanced Practice Midwife | DX: N93.9 Abnormal uterine and vaginal bleeding, unspecified (principal); N94.6 Dysmenorrhea, unspecified | CPT/HCPCS: 99212 ==

== ENCOUNTER 2025-07-25 10:22 | Outpatient (AMB) | payer OTHER, SELFPAY ==
--- NOTE | 2025-07-25 10:25 | A.OFFPC_ITS ---
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 No acute concerns today. Musculoskeletal: left foot ganglion cyst removed from [facility]. She is following with [facility]. States for almost 2 years she has had persistent lateral left foot pain. No swelling or abnormalities on MRI. Right shoulder has been painful since May. She states she can lift above her head but it is painful. She states pushing, pulling, or lifting is painful. She has tried supportive measures. Neuro: She is following with neurology for her dizziness and migraines. For migraine prevention: Monitor and track migraine. Continue venlafaxine ER 112.5 mg (75+37.5mg caps) daily For now, continue Qulipta (atogepant) 60mg daily at bedtime. However, as Qulipta is not fully effective, patient advised to start Vyepti 100 mg IV infusion Q 90 days. Once patient starts Vyepti, she will stop Qulipta Previous med tx's: Amitriptyline- ineffective at low doses, hand paresthesias at higher doses. Ajovy - effective no longer covered. Topiramate IR/ER- not tolerated. Botox- ineffective. Nortriptyline- ineffective. Propranolol- ineffective. Trokendi- caused paresthesias. 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 Maternal grandfather pancreatic ca in his mid 70s. Currently unemployed but making soaps for some extra padilla as she is on disability for her migraines. Lives at home with her boyfriend and 2 dogs. [facility] Medical History Family history of cancer Abnormal uterine bleeding (AUB) Learning difficulty Morbid obesity Surgical History History of foot surgery Hx of tonsillectomy History of ear surgery Family History Mother Diabetes Factor 5 Leiden mutation, heterozygous Father No problems noted. Paternal Aunt Ovarian cancer Social History Housing: House Alcohol intake: current Alcohol intake frequency: holidays/special occasions only Patient Tobacco Use Status: Current everyday Tobacco user Tobacco use type: Cigarette Cigarettes Per Day: 2 Years Smoked: 2 e-Cigarette/Vaping Use: Never Used Second Hand Smoke Exposure: No Substance Use Type: Marijuana service: No Current occupational status: employed Current occupation: [employer] Current occupational exposures/hazards: No Cognitive needs: No Hearing needs: No Vision needs: No Female Reproductive History Menstrual Age of Menarche: 11 Questionnaire Thrive Questionnaire Date Thrive assessed: 12/12/24 I am a: Patient What is your living situation today?: I have a steady place to live Within the past 12 months, did the food you bought not last and you didn't have the money to get more?: Never true Within the past 12 months, did you worry whether your food would run out before you got money to buy more?: Never true Do you have trouble paying for medicines?: Yes Do you have trouble getting transportation to medical appointments?: No Do you have trouble paying your heating and electricity bill?: No Do you have trouble taking care of your child, family member or friend?: No Do you have trouble with day-to-day activities such as bathing, preparing meals, shopping, managing finances, etc.?: I choose not to answer this question Are you currently unemployed and looking for a job?: I choose not to answer this question Are you interested in more education?: I choose not to answer this question Please select the resources that you would like help with: None Currently or been in a relationship where the following occur: I choose not to answer THRIVE Score: 0 AUDIT C Alcohol Use Questionnaire (AUDIT-C) 1. How often do you have a drink containing alcohol?: Monthly or less 2. How many drinks containing alcohol do you have on a typical day when you are drinking?: 1 or 2 3. How often do you have six or more drinks on one occasion?: Never Total Score: 1 Physical exam (Primary Care) Vital Signs: Last Vital Signs Temp 98.2 F 07/25/25 10:29 Pulse 87 07/25/25 10:29 Resp 14 07/25/25 10:29 BP 112/78 07/25/25 10:29 Pulse Ox 93 07/25/25 10:29 Oxygen Delivery Method Room Air 07/25/25 10:29 BMI result Body Mass Index 52.7 Tobacco/Smoking Status: Tobacco use Status Tobacco use date assessed 12/19/24 07/25/25 10:27 Patient Tobacco Use Status Current everyday Tobacco 07/25/25 10:27 Tobacco use type Cigarette 07/25/25 10:27 e-Cigarette/Vaping Use Never Used 07/25/25 10:27 Thrive Assessment: Date of Thrive Assessment Date Thrive assessed 12/12/24 07/25/25 10:27 Currently or been in a relationship where the following occur: I choose not to answer Const Orientation/consciousness: patient oriented x3 HENMT Ears: hearing grossly normal bilaterally General nose exam: No nasal polyps present Face and sinus: Yes sinuses nontender Mouth: Normal oral and palatal mucosa present Eyes Pupils: Equal, round and reactive pupils present EOM: EOMs intact bilaterally Neck Neck: Yes full ROM and Yes no lymphadenopathy Thyroid: Thyroid normal Lymphatic: no lymphadenopathy noted Chest Chest palpation & inspection: normal inspection of the chest Resp Auscultation: clear to auscultation bilaterally Cardio Rate: regular rate Rhythm: regular rhythm Heart sounds: S1 normal heart sound present and S2 normal heart sound present Peripheral pulses: Peripheral pulses 2+ throughout GI Other: Soft, nontender Inspection: Yes normal to inspection Palpation (GI): Soft to palpation and Other GI palpation findings present (nontender, no cva tenderness) Auscultation: normoactive bowel sounds Rectal Exam - Female: deferred General: Yes no CVA tenderness Back/Spine/Pelvis Other: Nontender Back: no CVA tenderness Skin General skin exam: no rashes or lesions noted Neuro General: patient oriented x3, gait normal and no focal motor deficits Cranial nerves: Yes Equal, round and reactive pupils present Motor exam (neuro): 5/5 motor strength present throughout Sensory Exam: double simultaneous stimulation for sensation normal Coordination: esbudj-vy-dxkk test normal and Romberg test negative Extrem General: Yes normal to inspection and Yes full ROM Psych Affect: normal affect Attitude: cooperative Thought process: Normal thought process present Thought content: Normal thought content present Insight: Good insight present (Psych) Judgement: Good judgement present (Psych) Coding Level of Care Code Est Pt Prev Care 18-39y(67795) Diagnoses Routine general medical examination at a health care facility Z00.00 BMI 50.0-59.9, adult Z68.43 Right shoulder pain M25.511 Assessment & Plan Assessment & Plan (1) Routine general medical examination at a health care facility: Code(s): Z00.00 - Encounter for general adult medical examination without abnormal findings Plan: reviewed declines flu shot labs ordered (2) BMI 50.0-59.9, adult: Code(s): Z68.43 - Body mass index [BMI] 50.0-59.9, adult Category: Medical Plan: referral to electrical development engineer (3) Right shoulder pain: Code(s): M25.511 - Pain in right shoulder Category: Medical Plan: xr ordered referral to ortho Orders: Orders Comprehensive Met. Panel Today M25.511 - Pain in right shoulder, Z00.00 - Encounter for general adult medical examination without abnormal findings, Z68.43 - Body mass index [BMI] 50.0-59.9, adult Complete Blood Count Auto Diff Today M25.511 - Pain in right shoulder, Z00.00 - Encounter for general adult medical examination without abnormal findings, Z68.43 - Body mass index [BMI] 50.0-59.9, adult Lipid Panel Today M25.511 - Pain in right shoulder, Z00.00 - Encounter for general adult medical examination without abnormal findings, Z68.43 - Body mass index [BMI] 50.0-59.9, adult XR shoulder RT min 2V Today M25.511 - Pain in right shoulder TSH reflex Free T4 Today M25.511 - Pain in right shoulder, Z00.00 - Encounter for general adult medical examination without abnormal findings, Z68.43 - Body mass index [BMI] 50.0-59.9, adult Referrals Plate Printer Nutrition Referral Z68.43 - Body mass index [BMI] 50.0-59.9, adult Orthopedics Referral M25.511 - Pain in right shoulder
[2025-07-25 10:29] VITALS: BP 112/78; PULSE 87; RESP 14; TEMP 36.8; O2SAT 93; BMI 52.7
== END 2025-07-25 11:05 | disposition home or self-care (01) ==
LOC: HO.HMCFM 10:23
PROVIDERS: PCP Physician Assistant; Visit Provider Physician Assistant
DX: Z00.00 Encounter for general adult medical examination without abnormal findings (principal); Z68.43 Body mass index [BMI] 50.0-59.9, adult; M25.511 Pain in right shoulder

== ENCOUNTER 2025-10-04 15:12 | Outpatient (REF) | payer OTHER, SELFPAY ==
--- NOTE | ~2025-10-04 | US_ITS ---
EXAMINATION: US EXTRACRANIAL CAROTID DUPLEX, BILATERAL CLINICAL INFORMATION: Pulsatile tinnitus left ear COMPARISON: MRI brain without and with contrast 10/23/2024 TECHNIQUE: Real-time ultrasound and Doppler techniques (integrating B-mode 2-D vascular images, Doppler spectral analysis and color-flow Doppler imaging) were utilized to interrogate the extracranial carotid arteries, the vertebral arteries and proximal subclavian arteries bilaterally. The degree of stenosis is determined by criteria similar to NASCET. FINDINGS: Right Side: 1. There is no atherosclerotic plaque seen in the bifurcation/proximal ICA region. 2. The common carotid artery PSV proximally is 122 cm/s and distally 77.4 cm/s. 3. The proximal internal carotid artery velocities are 85.1 cm/s systolic and 30.2 cm/s diastolic. 4. The proximal external carotid artery PSV is 90.5 cm/s. 5. The vertebral artery shows antegrade flow. 6. The subclavian artery waveforms are sharp and fall consistent with increased velocity of 2 53 cm/second and mild stenosis or moderate tortuosity. Left Side: 1. There is none atherosclerotic plaque seen in the bifurcation/proximal ICA region. 2. The common carotid artery PSV proximally is 101 cm/s and distally 104 cm/s. 3. The proximal internal carotid artery velocities are 61.5 cm/s systolic and 18.4 cm/s diastolic. 4. The proximal external carotid artery PSV is 50.9 cm/s. 5. The vertebral artery shows antegrade flow. 6. The subclavian artery waveforms have increased velocity measuring 237 cm/second. Findings likely suggestive of mild stenosis or moderate tortuosity. US/US carotid duplex BI IMPRESSION: No hemodynamically significant stenosis in either carotid artery. Elevated bilateral subclavian artery velocities likely secondary to tortuosity. No plaque seen within the subclavian arteries. 3. Normal antegrade flow seen in both vertebral arteries.. Electronically signed by: Clayton Bernstein MD 10/07/2025 08:48 AM EST
--- OUTSIDE RECORDS SUMMARY | 2025-10-04 16:23 | XMS_ITS | Continuity of Care Document ---
Author Organization [place] - [facility], MARIA ISABEL Ortega 2nd floor Address [address] [place] [address] Care Team Providers Care Dress Designer Name Role Phone DAI GALEANA Primary Care Provider Assessment No assessment recorded. Plan of Treatment Reminders Order Date Submit Date Provider Last Modified By Organization Details Last Modified Time Details Appointments None recorded. Lab None recorded. Referral physical therapist referral - Evaluate & Rx Cervical Stabilizati on Program 2024 025 summer coulter Not available 15:37:38 Procedures None recorded. Surgeries None recorded. Imaging XR, cervical spine, 1 view - rm 220 lateral view 2024 025 summer pelaez2 [facility], [address], [place], [address], 5 15:37:38 XR, shoulder, 2 or more view - rm 220 rt shldr 2024 [facility] [address], [place], [address], 5 15:22:57 Medication Orders None recorded. Patient TargetsNo targets recorded. Patient InstructionsNo instructions recorded. Reason for Referral Physical Therapist Referral for Strain of neck muscle Evaluate & RxCervical Stabilization Program Referring Physician: Waqas Mcmahon, Orthopedic Surgery, Encounter Date: 09/16/2025 Results Created Date Observation Date Name Description Value Unit Range Abnormal Flag Note LastModifiedBy Organization Detail LastModifiedTime 09/16/20 25 09/16/2025 XR, shoul sidra, 2 or more view http:/ [email or web address] ?Encry pted=s hAaTro YD8dLq bEUv6g %2BXZw aYqtaq 0bqfl% 2Fg9IQ a4ajBk vP9nXo QUaueC m3YtLR FvZl [facility] HZtai3 7s1938 AC0Kka n2EVKK lKiQtr MwF INTERFACE [facility] [address], [place], [address], 09/16/2025 15:22:57 09/16/20 25 09/16/2025 XR, shoul sidra, 2 or more view [email or web address]:/ [email or web address] ?Encry pted=s hAaTro YD8dLq bEUv6g %2BXZw aYqtaq 0bqfl% 2Fg9IQ a4ajBk vP9nXo QUaueC m3YtLR [address] HZtai3 3h3255 AC0Kka n2EVKK lKiQtr MwF INTERFACE [facility] [address] [facility] [address], [place], [address], 09/16/2025 15:22:59 09/16/20 25 09/16/2025 XR, cervi sav spine , 1 view [email or web address]:/ [email or web address] ?Encry pted=s hAaTro YD8dLq bEUv6g %2BXZw aYqtaq 0bqfl% 2Fg9IQ a4ajBk vP9nXo QUaueC m3YtLR Zl J8Magnet HZtai3 1r2072 AC0Kka n2EVqu nKiQtr MwF INTERFACE [facility] [address], [place], [address], 09/16/2025 15:33:31 09/16/20 25 09/16/2025 XR, cervi sav spine , 1 view [email or web address]:/ [email or web address] ?Encry pted=s hAaTro YD8dLq bEUv6g %2BXZw aYqtaq 0bqfl% 2Fg9IQ a4ajBk vP9nXo QUaueC m3YtLR FvZlgJ JJ8mAn HZtai3 0w0017 AC0Kka n2EVqu nKiQtr MwF INTERFACE [facility] [address] [facility] [address], [place], [address], 09/16/2025 15:33:33 Result Notes Documentation Provider Name and Address Organization Details Recorded Time Xr, Shoulder, 2 Or More View : [email or web address]? Encrypted=znZwPlhQW3xSwgC Uv6g%3YMLvyRgopz4qmpy%2Fg 9NTj5czMqcF8mBgQTqjfNz7Ae QKOeSnjCLM6xQlLRvbl51i314 1AH6Ypnl1XPBRgUzCcvBgS Not Available [facility] 09/16/2025 15:22: 58 Xr, Shoulder, 2 Or More View : [email or web address]? Encrypted=whIlTkyMJ1iAorM Uv6g%7BDLjnGrhun3hlmk%2Fg 6JVd4evErhK4iRgDFschXc4Os HCRnGqsQZC9vPnBAata86v115 6XD7Imwk7QJREpCjXerYkK Not Available [facility] 09/16/2025 15:23: 00 Xr, Cervical Spine, 1 View : [email or web address]? Encrypted=dtMyYuaWR2uHqzF Uv6g%3YPHohLymok8jcvj%2Fg 7CIu6wrCffT3cXoFCjemVa4Fb RFBoRnbFJJ5gOfVEfqw84h047 0AK1Sbyk2CSlnwTkSjqWaS Not Available [facility] 09/16/2025 15:33: 32 Xr, Cervical Spine, 1 View : [email or web address] Encrypted=sxHyVghOD3eRikK Uv6g%5GKLuqQcwqh4ionz%2Fg 6XZo9lxOneU9dDkPAqbgDa0Ud SFPkRpfKOZ6mAyKKyjw39c109 4PR5Cjtc5INfkhToWiiGlD Not Available [facility] 09/16/2025 15:33: 33 Problems Name Problem SNOMED Code Status Onset Date Resolution Date Notes Provider Name and Address Organization Details Recorded Time No complaints 342152112 Active Status : 'A'; Not Available [facility] 4 09:20:08 Pain of right knee joint 3956413617154 00 Active 2023 Marina Case, PT [address], [place], [address] , [facility] 4 22:31:28 Problem Notes None recorded. Procedures Surgical History Date Name Laterality Status Provider Name and Address Organization Details Recorded Time 5 Ankle/Foot Surgery completed Edson Lin [facility] 12/28/2024 09:35:49 5 EXCISION, GANGLION CYST, FOOT (SURG) completed Love marroquin [facility] 12/21/2024 07:44:36 4 58260 Therapeutic Exercise (1:1) cancelled Marina Case, PT [address], [place], [address], [facility] 07/12/2024 17:14:10 4 60945: Manual therapy cancelled Marina Case, PT [address], [place], [address], [facility] 07/12/2024 17:14:10 4 84605 Therapeutic Exercise (1:1) completed Marina Case, PT [address], [place], [address], [facility] 07/10/2024 13:55:47 4 33869: Manual therapy completed Marina Wing, PT [address], [place], [address], [facility] 07/10/2024 13:55:47 4 51351 Therapeutic Exercise (1:1) completed Ivis Jasak, CARRIER BLOWER [address], [place], [address], [facility] 07/06/2024 16:45:15 4 31491: Manual therapy completed Ivis Jasak, CARRIER BLOWER [address], [place], [address], [facility] 07/06/2024 16:41:39 4 35472 Therapeutic Exercise (1:1) completed Ivis Jasak, CARRIER BLOWER [address], [place], [address], [facility] 06/14/2024 14:08:10 4 23077: Manual therapy completed Ivis Jasak, CARRIER BLOWER [address], [place], [address], [facility] 06/14/2024 09:49:09 4 57059 Therapeutic Exercise (1:1) cancelled Marina Wing, PT [address], [place], [address], [facility] 06/05/2024 08:46:00 4 42059: Manual therapy cancelled Marina Wing, PT [address], [place], [address], [facility] 06/05/2024 08:46:01 4 18148 Therapeutic Exercise (1:1) completed Ivis Jasak, CARRIER BLOWER [address], [place], [address], [facility] 05/31/2024 09:39:00 4 41292: Manual therapy completed Ivis Jasak, CARRIER BLOWER [address], [place], [address], [facility] 05/31/2024 09:39:00 4 58118 Therapeutic Exercise (1:1) completed Ivis Lara, CARRIER BLOWER [address], [place], [address], [facility] 05/29/2024 09:41:36 4 79205: Manual therapy completed Ivis Hernadezk, CARRIER BLOWER [address], [place], [address], [facility] 05/29/2024 10:00:22 4 55428 Therapeutic Exercise (1:1) completed Marinarbobin Case, PT [address], [place], [address], [facility] 05/23/2024 22:29:11 4 27341: Low complexity PT Eval completed Marina Case, PT [address], [place], [address], [facility] 05/23/2024 22:29:27 Imaging Results None recorded. Procedure Notes None recorded. Medical Equipment None Reported. Allergies Allergen ID Allergen Name Allergen Category Reaction Reaction Severity Criticality Documentation Date Start Date Code Code System Note Provider Name and Address Organization Details Recorded Time 520409 acetamino phen / oxycodone medicatio n Not available Not available Not available 12/19/20232015 50059 3 RxNorm Not Available [facility] 4 15:49:56 Medications Name Sig Start Date Stop [...] Not Available No t Available venlafaxine ER 150 mg capsule,ext ended release 24 hr TAKE 1 CAPSULE BY MOUTH EVERY MORNING active Not Available Not Available No [...] unit) capsule TAKE 1 CAPSULE BY MOUTH EACH WEEK active Not Available Not Available No [...] completed Not Available Not Available Not Available M- Plus 27 mg iron-1 mg tablet TAKE 1 TABLET BY MOUTH EVERY DAY active Not Available Not Available No t Available Ubrelvy 100 mg tablet PLEASE SEE ATTACHED FOR DETAILED DIRECTION S active Not Available Not Available No t Available Qulipta 60 mg tablet TAKE 1 TABLET ORALLY DAILY FOR 30 DAYS active Not Available Not Available No t Available Zepbound 2.5 mg/0.5 mL subcutaneou s pen injector INJECT 2.5 MG (0.5 ML) SUBCUTANE OUSLY EVERY WEEK FOR 4 WEEKS active Not Available Not Available No t Available Vitals Date Recorded Body height Body mass index (BMI) Body weight Provider Name and Address Organization Details Last Updated DateTime 09/16/2025 149.86 cm 52.5 kg/m2 194768.02 g JAE LUIS [facility] 09/16/2025 15:09:44 Social History Question Answer Notes LastModified by Organizat ion Details LastModified Time Tobacco Smoking Status Former Smoker Love marroquin [facility] 10/30/2024 09:33:47 When Did You Quit [...] Diagnosis SNOMED-CT Code Diagnosis ICD10 Code Diagnosis IMO Codes Diagnosis Note [id number] JOSE Kaufman [address] [place] [address] 09/16/2025 14:37:17 10/02/2025 11:30:00 Pain of right shoulder joint [id number] 7471523 M25.511 200934 Neck pain 98418232 M54.2 461181 Strain of neck muscle 36 5653523 S16.1XXA [id number] Health Concerns Section Related Observation LastModified by Organization Detai ls LastModified Time None Recorded Concern Status LastModified by Organization Details LastModified Time None Recorded Payers Encounter Date Sequence Insurance Name Policy Number Policy Bell Covered Member ID Bell Member ID Guarantor Name 09/16/2025 1 [facility] PUBLIC PLANS [facility] TYPE I (HMO) [id number] Kayleigh Dickson Ohloridavid [id number] Kayleigh Blancnitza Notes Date Note Type Note Provider Name and Address Organization Details Recorded Time 09/16/2025 text/html I am seeing this patient under the supervision of Dr. Whitehead who was available but did not see the patient.HPI: Kayleigh presents examination of right shoulder pain. 30-year-old female who has been experiencing pain through the right shoulder both anterior posteriorly extending into the neck and scapular region since playing with her dogs aggressively in June. Pain is diffuse in nature. Difficulty with raising or using the arm or activities overhead. Denies any associated paresthesias or paralysis. Denies any prior instability to the shoulder.PFMSH and ROS has been reviewed, updated, and is located in the patient s chart.PHYSICAL EXAMINATION: The patient is well appearing and in no apparent distress. Alert and oriented x 3. Gait is symmetric.Left shoulder demonstrates: Full range of motion, 5/5 strength including rotator cuff and periscapular musculature. Good muscle bulk and strength without atrophy. No evidence of instability of the shoulder. Negative impingement signs. Negative AC joint tenderness.Right shoulder demonstrates: Forward elevation to 170 degrees, externally rotates 60, internal rotates to L1. Moderate bursal irritability, with mildly positive impingement test, No AC joint irritability. Good strength when firing the cuff to external rotation. Mild pain with resistive horizontal elevation today. No anterior instability noted with negative apprehension sign. Cervical ROM normal without radicular symptomsNo erythema, no redness, no warmth. Peripheral, vascular, lymphatic examination, skin, neurological, coordination, reflexes, sensation are within normal limits.X-RAY REPORT: X-rays were ordered, obtained and reviewed today at [facility]. Four views of the right shoulder demonstrate type II acromion, AC joint demonstrates mild arthrosis, glenohumeral joint is well preserved. Lateral C-spine demonstrates stacked appearance of the vertebrae with complete loss of normal curvatureIMPRESSIO N: Right periscapular, pericervical, anterior chest wall muscle strainPLAN: Lengthy discussion regarding the nature of her symptoms and treatment options. At this time clinical findings clearly indicate this to be muscular in nature. PT prescription provided to work with the neck and scapula. She will follow-up with us as needed. Waqas Mcmahon PA-C [address], [place], [address], [place] [facility] 09/16/2025 15:40:16 OBGyn Episode No OBEpisode recorded.
--- OUTSIDE RECORDS SUMMARY | 2025-10-04 16:23 | XMS_ITS | Data Portability ---
Author Organization KATELYN - Kevon Vanessa Wym[facility], [facility] Address [address] [place] [address] Care Team Providers Care Solar Consultant Name Role Phone DAI GALEANA Primary Care Provider Assessment No assessment recorded. Plan of Treatment Reminders Order Date Submit Date Provider Last Modified By Organization Details Last Modified Time Details Appointments None recorded. Lab None recorded. Referral physical therapist referral - Evaluate & Rx Cervical Stabilizati on Program 2024 025 summer coulter Not available 5 15:37:38 physical therapist referral - Status post excision left midfoot ganglion cyst. Date of surgery 12/06/242024 025 [id number] Not available 5 12:16:38 Procedures None recorded. Surgeries None recorded. Imaging XR, cervical spine, 1 view - rm 220 lateral view 2024 025 summer de2 [facility], [address], [place], [address], 5 15:37:38 XR, shoulder, 2 or more view - rm 220 rt shldr 2024 025 NICO [facility], [address], [place], [address], 5 15:22:57 Medication Orders None recorded. Patient TargetsNo targets recorded. Patient InstructionsNo instructions recorded. Reason for Referral Physical Therapist Referral for Ganglion cyst of left foot Status post excision left midfoot ganglion cyst. Date of surgery 12/06/24 Referring Physician: Gale Wan, Orthopedic Surgery, Encounter Date: 01/21/2025 Physical Therapist Referral for Strain of neck muscle Evaluate & RxCervical Stabilization Program Referring Physician: Waqas Mcmahon, Orthopedic Surgery, Encounter Date: 09/16/2025 Results Created Date Observation Date Name Description Value Unit Range Abnormal Flag Note LastModifiedBy Organization Detail LastModifiedTime 09/16/2009/16/2025 XR, shoul sidra, 2 or more view http:/ [email or web address] ?Encry pted=s hAaTro YD8dLq bEUv6g %2BXZw aYqtaq 0bqfl% 2Fg9IQ a4ajBk vP9nXo QUaueC m3YtLR FvZlgJ JJ8mAn HZtai3 2f4286 AC0Kka n2EVKK lKiQtr MwF INTERFACE [facility] [address], [place], [address], 09/16/2025 15:22:57 09/16/20 25 09/16/2025 XR, shoul sidra, 2 or more view [email or web address]:/ [email or web address] ?Encry pted=s hAaTro YD8dLq bEUv6g %2BXZw aYqtaq 0bqfl% 2Fg9IQ a4ajBk vP9nXo QUaueC m3YtLR FvZl JJ8mAn HZtai3 1k7009 AC0Kka n2EVKK lKiQtr MwF INTERFACE [facility] [address], [place], [address], 09/16/2025 15:22:59 09/16/20 25 09/16/2025 XR, cervi sav spine , 1 view http:/ [email or web address] ?Encry pted=s hAaTro YD8dLq bEUv6g %2BXZw aYqtaq 0bqfl% 2Fg9IQ a4ajBk vP9nXo QUaueC m3YtLR FvZlgJ JJ8mAn HZtai3 2k8538 AC0Kka n2EVqu nKiQtr MwF INTERFACE [facility] [address] [facility] [address], [place], [address], 09/16/2025 15:33:31 09/16/20 25 09/16/2025 XR, cervi sav spine , 1 view http:/ [email or web address] ?Encry pted=s hAaTro YD8dLq bEUv6g %2BXZw aYqtaq 0bqfl% 2Fg9IQ a4ajBk vP9nXo QUaueC m3YtLR FvZlgJ JJ8mAn HZtai3 0v2847 AC0Kka n2EVqu nKiQtr MwF INTERFACE [facility] [address] [address], [place], [address], 09/16/2025 15:33:33 Result Notes Documentation Provider Name and Address Organization Details Recorded Time Xr, Shoulder, 2 Or More View : [email or web address]? Encrypted=ujMiUeuUC3yFcqG Uv6g%4FEZdrHayxz0czrh%2Fg 8AWn2vdJzjZ8dRbIDtngPe0Gl PUUbFdoIRM0sTyWMlpl56q949 4DH8Ejnq0KTFGuCoSolSkQ Not Available [facility] 09/16/2025 15:22: 58 Xr, Shoulder, 2 Or More View : [email or web address]? Encrypted=kcOzZaqMW1iDmcO Uv6g%2WWLajHkktt7afen%2Fg 8QSj8pyXnxY4vOtXExtePn7Qd WNPmBagAOE4vVhCLxww51j453 0LQ3Yrwn6XDOKkDuNcgBpU Not Available [facility] 09/16/2025 15:23: 00 Xr, Cervical Spine, 1 View : [email or web address]? Encrypted=xqTkIutHC2xVqrP Uv6g%7MHYarIbuhk7svnn%2Fg 5WPb5vnHpmW3zGsHNmphAq8Gb TVHdMghUUO6dAyHJrsb90g587 3LW8Fbbv6GCruzLeNdmGmM Not Available [facility] 09/16/2025 15:33: 32 Xr, Cervical Spine, 1 View : [email or web address] Encrypted=aiLoRvlGJ0qCnoA Uv6g%7ZWKrjSloes6ijcu%2Fg 1WJg1waKggP6bAePWzvsPf0Dd XCHtRvsUTB0uBnCPtdu90k096 7FE3Twyx0YUpftPbUkxOvF Not Available [facility] 09/16/2025 15:33: 33 Problems Name Problem SNOMED Code Status Onset Date Resolution Date Notes Provider Name and Address Organization Details Recorded Time No complaints 900542869 Active Status : 'A'; Not Available [facility] 4 09:20:08 Pain of right knee joint 1795136711989 00 Active 2023 Marina Case, PT [address], [place], [address] , [facility] 4 22:31:28 Problem Notes None recorded. Procedures Surgical History Date Name Laterality Status Provider Name and Address Organization Details Recorded Time 5 Ankle/Foot Surgery completed Edson Lin [facility] 12/28/2024 09:35:49 5 EXCISION, GANGLION CYST, FOOT (SURG) completed Love marroquin [facility] 12/21/2024 07:44:36 4 13777 Therapeutic Exercise (1:1) cancelled Marina Case PT [address], [place], [address], [facility] 07/12/2024 17:14:10 4 32369: Manual therapy cancelled Marina Case PT [address], [place], [address], [facility] 07/12/2024 17:14:10 4 89895 Therapeutic Exercise (1:1) completed Marina Case, PT [address], [place], [address], [facility] 07/10/2024 13:55:47 4 57597: Manual therapy completed Marina Case, PT [address], [place], [address], [facility] 07/10/2024 13:55:47 4 61976 Therapeutic Exercise (1:1) completed Ivis Lara, CLIENT SERVICE ADMINISTRATOR [address], [place], [address], [facility] 07/06/2024 16:45:15 4 51373: Manual therapy completed Ivis Lara, CLIENT SERVICE ADMINISTRATOR [address], [place], [address], [facility] 07/06/2024 16:41:39 4 53990 Therapeutic Exercise (1:1) completed Ivis Lara, CLIENT SERVICE ADMINISTRATOR [address], [place], [address], [facility] 06/14/2024 14:08:10 4 76915: Manual therapy completed Ivis Lara CLIENT SERVICE ADMINISTRATOR [address], [place], [address], [facility] 06/14/2024 09:49:09 4 54366 Therapeutic Exercise (1:1) cancelled Marina Case, PT [address], [place], [address], [facility] 06/05/2024 08:46:00 4 52337: Manual therapy cancelled Marina Case, PT [address], [place], [address], [facility] 06/05/2024 08:46:01 4 21314 Therapeutic Exercise (1:1) completed Ivistaniya Del Angelk, CLIENT SERVICE ADMINISTRATOR [address] [facility], [place], [address], [facility] 05/31/2024 09:39:00 4 50954: Manual therapy completed Ivis Lara, CLIENT SERVICE ADMINISTRATOR [address], [place], [address], [facility] 05/31/2024 09:39:00 4 72727 Therapeutic Exercise (1:1) completed Ivis Lara, CLIENT SERVICE ADMINISTRATOR [address] [facility], [place], [address], [facility] 05/29/2024 09:41:36 4 65701: Manual therapy completed Ivis Lara, CLIENT SERVICE ADMINISTRATOR [address], [place], [address], [facility] 05/29/2024 10:00:22 4 08886 Therapeutic Exercise (1:1) completed Marina Case, PT [address] [facility], [place], [address], [facility] 05/23/2024 22:29:11 4 19770: Low complexity PT Eval completed Marina Case PT [address] [facility], [place], [address], [facility] 05/23/2024 22:29:27 Imaging Results None recorded. Procedure Notes None recorded. Medical Equipment None Reported. Allergies Allergen ID Allergen Name Allergen Category Reaction Reaction Severity Criticality Documentation Date Start Date Code Code System Note Provider Name and Address Organization Details Recorded Time 685596 acetamino phen / oxycodone medicatio n Not available Not available Not available 12/19/20232015 66722 3 RxNorm Not Available [facility] 15:49:56 Medications Name Sig Start Date Stop [...] Updated DateTime 12/28/2024 149.86 cm 52.5 kg/m2 094634.02 g Edson Lin [facility] 12/28/2024 09:35:57 Date Recorded Body height Body mass index (BMI) Body weight Provider Name and Address Organization Details Last Updated DateTime 01/21/2025 149.86 cm 52.5 kg/m2 388766.02 traci marroquin [facility] 01/21/2025 09:53:18 Date Recorded Body height Body mass index (BMI) Body weight Provider Name and Address Organization Details Last Updated DateTime 09/16/2025 149.86 cm 52.5 kg/m2 804194.02 traci LUIS [facility] 09/16/2025 15:09:44 Social History Question Answer Notes LastModified by Organizat ion Details LastModified Time Tobacco Smoking Status Former Smoker Love caradionisio crump [place] [facility] 10/30/2024 09:33:47 When Did You Quit Smoking? [...] ICD10 Code Diagnosis IMO Codes Diagnosis Note [id number] JOSE Denis [address] [place] [address] 05/21/2024 09:32:44 06/13/2024 14:35:48 Pain of right knee joint 8191229491 17054 M25.561 Chondromal acia of right patella 3218777812 2901505 M22.41 [id number] Marina Case, PT [facility] [address] [place] [address] 05/25/2024 14:45:57 05/25/2024 15:35:10 Pain of right knee joint 4916994108 57213 M25.044 [id number] ANTHONY Herring PT [address] [place] [address] 05/29/2024 09:25:37 05/29/2024 10:15:35 Pain of right knee joint 9638637488 28816 M25.063 [id number] ANTHONY Herring PT [address] [place] [address] 05/31/2024 08:55:21 05/31/2024 09:20:12 Pain of right knee joint 9730840676 45104 M25.121 1507713 ANTHONY Herring PT [address] [place] [address] 06/14/2024 09:24:05 06/14/2024 10:22:06 Pain of right knee joint 5919210706 83087 M25.556 [id number] ANTHONY Herring PT [address] [place] [address] 07/05/2024 15:21:18 07/05/2024 16:02:12 Pain of right knee joint 5481260716 48072 M25.756 [id number] Marina Case PT [facility] [address] [place] [address] 07/11/2024 11:20:41 07/11/2024 12:06:26 Pain of right knee joint 9276356847 71828 M25.421 [id number] MD Shannon W[facility]ins [address] [place] [address] 10/15/2024 08:32:51 11/01/2024 11:06:46 Pain in left foot 7633565583 51962 M79.672 159087 [id number] MD MARIA ISABEL [facility] [address] [place] [address] 11/05/2024 12:35:58 11/20/2024 14:45:39 Pain in left foot 9399236719 18374 M79.672 305482 Ganglion c yst of left foot 7059174089 232659 M67.472 43827640 Arthritis of left foot 2079817369 822630 M19.072 851582 1671544 MD MARIA ISABEL W[facility]ins [facility] [address] [place] [address] 12/14/2024 09:18:14 12/14/2024 10:07:56 Ganglion of ankle and foot 772226234 M67.103 7823131 Osteoarthr itis of joint of left ankle and/or foot 588305378 M19.896 6027758 [id number] MD MARIA ISABEL [facility]ins [place] [address] [place] [address] 12/21/2024 10:14:33 12/21/2024 13:30:02 Surgical follow-up 180670133 Z09 500862 [id number] JOSE Vasquez [facility] [address] [place] [address] 12/28/2024 09:22:43 01/11/2025 11:12:06 Ganglion cyst of left foot 3260851822 003850 M67.472 37162045 [id number] MD MARIA ISABEL W[facility] [address] [place] [address] 01/21/2025 09:19:59 02/05/2025 14:22:13 Ganglion cyst of left foot 1596556916 428938 M67.472 05374298 Pain in left foot 232060 0842 52175 M79.672 599507 [id number] JOSE Kaufman [address] [place] [address] 09/16/2025 14:37:17 10/02/2025 11:30:00 Pain of right shoulder joint 0886817178 9680285 M25.511 195413 Neck pain 06881385 M54.2 387022 Strain of neck muscle 36 9143004 S16.1XXA 3399412 Health Concerns Section Related Observation LastModified by Organization Detai ls LastModified Time None Recorded Concern Status LastModified by Organization Details LastModified Time None Recorded Advance Directives Directive None Recorded Payers Insurance Date Sequence Insurance Name Policy Number Policy Bell Covered Member ID Bell Member ID Guarantor Name 10/02/2025 1 [facility] [employer] - DIRECT CONNECTORCARE TYPE I (HMO) [id number] Kayleigh Dickson Pll[place]idor [id number] Kayleigh Antunez Notes Date Note Type Note Provider Name and Address Organization Details Recorded Time 12/28/2024 text/html I am seeing this patient [...] questions or concerns. Gina Sweeney PA-C [address] [facility] [address] [facility], [place], [address], [facility] - [facility] 12/28/2024 09:51:49 01/21/2025 text/html [...] month for repeat evaluation Gale Wan MD [address] [place] [address] [address], [place], [address], [facility] 01/24/2025 20:26:55 09/16/2025 text/html I am seeing this patient [...] were ordered, obtained and reviewed today at [facility]. Four views of the right shoulder demonstrate type II acromion, AC joint demonstrates mild arthrosis, glenohumeral joint is well preserved. Lateral C-spine demonstrates stacked appearance of the vertebrae with complete loss of normal curvatureIMPRESSION: Right periscapular, pericervical, anterior chest wall muscle strainPLAN: Lengthy discussion regarding the nature of her symptoms and treatment options. At this time clinical findings clearly indicate this to be muscular in nature. PT prescription provided to work with the neck and scapula. She will follow-up with us as needed. Waqas Mcmahon PA-C [address], [place], [address], [place] [facility] 09/16/2025 15:40:16 OBGyn Episode No OBEpisode recorded.
--- OUTSIDE RECORDS SUMMARY | 2025-10-04 16:24 | XMS_ITS | Clinical Summary ---
Author Organization [facility] it Address [address] [place] [address] Care Team Providers Care County Commissioner Name Role Phone Neda Burgess MD Primary [...] on file Sexual Orientation Not on file Last Filed Vital Signs Vital Sign Reading [...] 09/26/2016 09/26/2006, 1999, 03/18/1997, Additional history exists Cervical Cancer Screening: Pap Smear 02/04/2024 02/03/2021 Depression Screening 10/17/2024 COVID-19 Vaccine ( season) 2025 Influenza Vaccine (#1) 2025 2, 11/19/2009, 11/14/2008, Additional history exists RSV Immunization Adult Patients (1 - 1-dose 75+ series) 2070 Hepatitis B Vaccines Completed 06/15/1996, 1995, 1995 [...] RESULTING AGENCY - 02/05/2021 2:26 PM EDT [id number] THINPREP PAP, IMAGED: NEGATIVE FOR SQUAMOUS INTRAEPITHELIAL LESION AND MALIGNANCY . GARIMA FRANCIS(ASCP) (CASE ELECTRONICALLY SIGNED 02 05 2021) ADEQUACY: SATISFACTORY ENDOCERVICAL/TRANSFORMATION ZONE COMPONENT ABSENT. SOURCE: THINPREP PAP HPV IF ASCUS, CERVICAL, IMAGED CLINICAL INFORMATION: HPV IF DIAGNOSIS OF ASCUS. HORMONES, PAP HX NEG 01/31/17, LMP 01/20/21 [Z12.4, Z01.419] Jacob Irvin [facility] CYTOLOGY ORDERABLES Final Result HISTORICAL TESTING LAB RESULTING AGENCY from Last 3 Months or Most Recently Relevant to Health Maintenance Care Teams County Commissioner Relationship Specialty Start Date End Date Neda Burgess MD PCP - General Internal Medicine 11/25/15
--- OUTSIDE RECORDS SUMMARY | 2025-10-04 16:24 | XMS_ITS | Patient Health Record ---
Author Organization [facility] Address [address] [facility] [address] [place] [address] Care Team Providers Care Spring Tier Name Role Phone MathewHeather gillette Primary Care Provider KIRIT Fragoso Unavailable [phone] Allergies No Known Allergies Reason For Referral [...] W/U Status Risk Notes Problem Chronic pain (00542639) Other chronic pain (G89.29) Active confirmed Vital Signs Height 4ft 11in in 05/15/2025 Weight 261.3 lbs 05/15/2025 BMI 52.77 kg/m2 05/15/2025 Procedures Procedure Date Ordered Date Performed Result Body Sit e DRAIN/INJECT, SMALL JOINT/BURSA 05/15/2025 N/A Encounters Encounter Location Date Provider Diagnosis [facility] [address] 05/13/2025 KIRIT LINNETTE Pain in left foot M79.672 ; Other chronic pain G89.29 and Ganglion cyst of left foot M67.472 [facility] [address] 05/15/2025 KIRIT LINNETTE Bursitis of left foot M77.52 [facility] [address] 05/14/2025 KIRIT LINNETTE [facility] [address] 05/15/2025 KIRIT LINNETTE [facility] [address] 05/30/2025 KIRIT LINNETTE [facility] [address] 05/30/2025 KIRIT LINNETTE [facility] [address] 06/11/2025 KIRIT LINNETTE [facility] [address] 08/06/2025 KIRIT LINNETTE [facility] [address] 08/14/2025 KIRIT LINNETTE Assessments Encounter Date Diagnosis (ICD [...] an MRI in the past at [facility]. Her xrays show nothing of concern. It [...] left foot that was done at [facility] without contrast. She has a large adventitious [...] Insured Coverage Start Date Coverage End Date [facility] (NO REFERRAL ) [address] [place] [address] [id number] Kayleigh Antunez Self - patient is the [...]
== END 2025-10-04 15:13 | disposition home or self-care (01) ==
LOC: HO.US 15:12
PROVIDERS: PCP Physician Assistant; Visit Provider Nurse Practitioner Family
DX: G93.2 Benign intracranial hypertension (principal); H93.A2 Pulsatile tinnitus, left ear; E23.6 Other disorders of pituitary gland; Z68.43 Body mass index [BMI] 50.0-59.9, adult
CPT/HCPCS: 93880

== ENCOUNTER → 2025-10-04 15:14 | Outpatient (BNV) | payer OTHER, SELFPAY | PROVIDERS: PCP Physician Assistant; Visit Provider Radiology Diagnostic Radiology | DX: H93.A2 Pulsatile tinnitus, left ear (principal); I77.1 Stricture of artery | CPT/HCPCS: 93880 ==